=== PATIENT | male | born 1970 | race Caucasian/White ===

== ENCOUNTER 2017-06-01 17:00 | Emergency (ER) | payer MEDICARE, MEDICAID ==
[2017-06-01 17:38] LABS: #Eosinphils 0.1 thou/uL (0.0-0.7); #Lymphocytes 1.2 thou/uL (1.20-3.40); #Monocytes 0.4 thou/uL (0.11-0.59); #Neutrophils 4.5 thou/uL (1.40-6.50); %Basophils 0.7 % (0.0-1.0); %Lymphocytes 19.1 % (21.0-51.0); %Monocytes 5.7 % (0.0-10.0); %Neutrophils 73.4 % (42.0-75.0); Hemoglobin 13.8 g/dL (14.0-18.0); Mean Corpuscular HGB CONC 32.8 g/dL (32.0-36.0); Mean Corpuscular Hemoglobin 28.6 pg (27.0-31.0); Mean Corpuscular Volume 87.1 fl (80.0-94.0); Mean Platelet Volume 8.2 fL (7.4-10.4); Platelet Count 122 thou/uL (130-400); RBC Distribution Width 12.5 % (11.5-14.5); Red Blood Cell (RBC) Count 4.85 mill/uL (4.70-6.10); White Blood Cell (WBC) Count 6.1 thou/uL (4.8-10.8)
[2017-06-01 17:57] LABS: ALT (SGPT) 9 U/L (8-55); AST (SGOT) 12 U/L (5-34); Alkaline Phosphatase 80 U/L (40-150); Anion Gap 12 mmol/L (10-20); BUN (Urea Nitrogen) 16 mg/dL (8.9-20.6); Bilirubin, Total 0.4 mg/dL (0.2-1.2); Calc. Creatinine Clearance 0 mL/min (70-130); Calcium 8.5 mg/dL (7.8-10.44); Carbon Dioxide 26 mmol/L (22-29); Chloride 105 mmol/L (98-107); Estimated GFR-MDRD Greater than 90; Globulin 2.8 g/dL (2.4-3.5); Glucose 109 mg/dL (70-105); Potassium 3.5 mmol/L (3.5-5.1); Protein, Total 6.8 g/dL (6.0-8.3); Sodium 139 mmol/L (136-145)
[2017-06-01] MEDS ORDERED: Azithromycin 250 MG TAB ONE (20:12)
--- NOTE | 2017-06-01 20:31 | RAD ---
PORTABLE AP CHEST RADIOGRAPH: Date: 06-01-17 History: Cough, congestion. Comparison: 06-09-16 FINDINGS: Again noted is elevation of the left hemidiaphragm. There is parenchymal increased density at the lef t lung base which is greater than on the prior exam. While this could be related to atelectasis, foca l pneumonia is a possibility. The right lung is clear. Cardiac silhouette is magnified by projection. The pulmonary vasculature is within normal limits. There is a regular lytic and sclerotic density se en within the right proximal humerus, also seen on the prior study on 10-30-13, which may represent ei ther a low grade chondroid lesion or infarction. Surgical clips overlie the left hilar region. There is gaseous distention of multiple loops of bowel within the abdomen. No other interval change. IMPRESSION: 1. Elevation of the left hemidiaphragm with volume loss left lung base. However, there is greater par enchymal density at the left lung base than on the prior exam and focal pneumonia cannot be excluded. Follow up to resolution is recommended. POS: ELIZABETH
== END 2017-06-01 20:33 | disposition home or self-care (01) ==
LOC: ERS 17:00
DX: J40 Bronchitis, not specified as acute or chronic (principal); I10 Essential (primary) hypertension; F31.9 Bipolar disorder, unspecified; F41.9 Anxiety disorder, unspecified; Z79.899 Other long term (current) drug therapy; Z79.891 Long term (current) use of opiate analgesic
CPT/HCPCS: 36415; 71045; 80053; 85025

== ENCOUNTER 2017-06-25 14:03 | Emergency (ER) | payer MEDICARE, MEDICAID ==
[2017-06-25 14:54] LABS: #Eosinphils 0.1 thou/uL (0.0-0.7); #Lymphocytes 0.8 thou/uL (1.20-3.40); #Monocytes 0.5 thou/uL (0.11-0.59); #Neutrophils 8.1 thou/uL (1.40-6.50); %Basophils 0.5 % (0.0-1.0); %Eosinophils 0.6 % (0.0-10.0); %Lymphocytes 8.6 % (21.0-51.0); %Monocytes 5.4 % (0.0-10.0); %Neutrophils 84.9 % (42.0-75.0); Mean Corpuscular HGB CONC 32.6 g/dL (32.0-36.0); Mean Corpuscular Hemoglobin 28.3 pg (27.0-31.0); Mean Corpuscular Volume 86.7 fl (80.0-94.0); Mean Platelet Volume 7.9 fL (7.4-10.4); Platelet Count 116 thou/uL (130-400); RBC Distribution Width 12.6 % (11.5-14.5); Red Blood Cell (RBC) Count 5.28 mill/uL (4.70-6.10); White Blood Cell (WBC) Count 9.5 thou/uL (4.8-10.8)
[2017-06-25 15:19] LABS: ALT (SGPT) 89 U/L (8-55); AST (SGOT) 115 U/L (5-34); Alkaline Phosphatase 176 U/L (40-150); Anion Gap 16 mmol/L (10-20); BUN (Urea Nitrogen) 16 mg/dL (8.9-20.6); Bilirubin, Total 0.7 mg/dL (0.2-1.2); Calc. Creatinine Clearance 0 mL/min (70-130); Calcium 8.7 mg/dL (7.8-10.44); Carbon Dioxide 21 mmol/L (22-29); Chloride 106 mmol/L (98-107); Estimated GFR-MDRD Greater than 90; Globulin 2.9 g/dL (2.4-3.5); Glucose 84 mg/dL (70-105); Potassium 4.6 mmol/L (3.5-5.1); Protein, Total 6.9 g/dL (6.0-8.3); Sodium 138 mmol/L (136-145)
[2017-06-25 15:41] LABS: Bilirubin Negative (Negative); Blood, Urine Negative (Negative); Clarity CLEAR (Clear); Glucose, Urine (Dipstick) Negative (Negative); Leukocyte Negative (Negative); Nitrite Negative (Negative); Protein, Urine (Dipstick) Negative (Neg-Trace); Specific Gravity, Urine 1.018 (1.002-1.036); pH, Urine 6.5 (5.0-9.0)
[2017-06-25] MEDS ORDERED: Acetaminophen 500 MG TAB ONE (17:11)
[2017-06-25] MEDS ORDERED: Acetaminophen 650 MG Suppository ONE (17:35)
--- NOTE | 2017-06-25 17:53 | CT ---
CT BRAIN WITHOUT CONTRAST 06/25/17 HISTORY: Headache. COMPARISON: CT brain 09/11/14. FINDINGS: No acute territorial infarction or hemorrhage. No midline shift or mass effect. Ventricular size and extra-axial CSF spaces are similar. Posterior fossa encephalomalacia as well as anterior inferior right temporal lobe encephalomalacia is similar. IMPRESSION: No acute intracranial abnormality. No significant change. POS: [facility]
--- NOTE | 2017-06-25 18:03 | ULT ---
EXAM: RUQ ultrasound HISTORY: Elevated LFTs FINDINGS: Liver measures 14.7 cm in length. No intrahepatic or extrahepatic biliary dilatation. Prior cholecystectomy. Right kidney measures 10.3 x 4.89 x 4 cm. Pancreas is not well seen. Sonographic Kennedy's sign is negative. Common bile duct measures 5 mm. IMPRESSION: Unremarkable exam. POS: [facility]
== END 2017-06-25 20:57 ==
LOC: ERS 14:03
DX: G40.909 Epilepsy, unspecified, not intractable, without status epilepticus (principal); I10 Essential (primary) hypertension; F41.9 Anxiety disorder, unspecified; F31.9 Bipolar disorder, unspecified; Z79.899 Other long term (current) drug therapy; Z86.73 Personal history of transient ischemic attack (TIA), and cerebral infarction without residual deficits
CPT/HCPCS: 36415; 51701; 70450; 76705; 80053; 81003; 85025; 93005; 94760

== ENCOUNTER 2018-02-13 12:18 | Inpatient (IN) | payer MEDICARE, MEDICAID ==
[~2018-02-13 12:18] MED LIST: ISOVUE-370 76%-LOCM 1 ML ONE
--- NOTE | 2018-02-13 13:17 | RAD ---
PORTABLE CHEST: Date: 02/13/18 PROVIDED CLINICAL HISTORY: Dyspnea. FINDINGS: Comparison with 06/01/17. Elevation of the left hemidiaphragm persists, unchanged with respect to prior. Cardiac and mediastina l silhouette appears within normal limits as visualized. No focal consolidation, pleural fluid, or pn eumothorax apparent. Stable low grade chondroid lesion right proximal humeral metaphyseal region. IMPRESSION: Stable radiographic appearance of the chest. POS: ELIZABETH
[2018-02-13 13:53] LABS: #Eosinphils 0.1 thou/uL (0.0-0.7); #Lymphocytes 0.9 thou/uL (1.20-3.40); #Monocytes 0.5 thou/uL (0.11-0.59); #Neutrophils 4.7 thou/uL (1.40-6.50); %Basophils 0.4 % (0.0-1.0); %Eosinophils 0.9 % (0.0-10.0); %Monocytes 8.4 % (0.0-10.0); %Neutrophils 75.3 % (42.0-75.0); Hemoglobin 14.2 g/dL (14.0-18.0); Mean Corpuscular HGB CONC 31.8 g/dL (32.0-36.0); Mean Platelet Volume 8.4 fL (7.4-10.4); Platelet Count 118 thou/uL (130-400); Red Blood Cell (RBC) Count 5.08 mill/uL (4.70-6.10); White Blood Cell (WBC) Count 6.2 thou/uL (4.8-10.8)
[2018-02-13 14:07] LABS: ALT (SGPT) 42 U/L (8-55); AST (SGOT) 45 U/L (5-34); Albumin 3.7 g/dL (3.5-5.0); Alkaline Phosphatase 138 U/L (40-150); Anion Gap 14 mmol/L (10-20); BUN (Urea Nitrogen) 14 mg/dL (8.9-20.6); Bilirubin, Total 0.4 mg/dL (0.2-1.2); Calc. Creatinine Clearance 0 mL/min (70-130); Calcium 8.8 mg/dL (7.8-10.44); Carbon Dioxide 23 mmol/L (22-29); Chloride 105 mmol/L (98-107); Estimated GFR-MDRD Greater than 90; Glucose 103 mg/dL (70-105); Potassium 3.5 mmol/L (3.5-5.1); Protein, Total 6.7 g/dL (6.0-8.3); Sodium 138 mmol/L (136-145)
[2018-02-13 14:11] LABS: Troponin I Less than 0.010 ng/mL (< 0.028)
[2018-02-13 15:09] LABS: INR-International Normal Ratio 1.1; PTT 31.4 SEC (22.9-36.1); Prothrombin Time 14.6 SEC (12.0-14.7)
[2018-02-13 15:15] LABS: Magnesium 1.9 mg/dL (1.6-2.6); Phosphorus 3.8 mg/dL (2.3-4.7)
--- NOTE | 2018-02-13 16:08 | CT ---
CT ARTERIOGRAM CHEST WITH IV CONTRAST AND 3D MIP IMAGIN02/13/18 HISTORY: Chest pain. Dyspnea. COMPARISON: 06/03/16. FINDINGS: There is good contrast opacification of pulmonary arteries and thoracic aorta with normal branching o f the great vessels. Low density material fills the left main stem bronchus and left lower lobe bronc hi. Some aeration of the left upper lobe remains. Near complete atelectasis left lower lobe with spar ing of the superior segment. Mild atelectasis at the right base. Marked elevation of the left hemidia phragm. No pneumothorax or mediastinal adenopathy. IMPRESSION: No CT evidence of pulmonary embolus. Near complete left lower lobe atelectasis with extensive opacification of the left bronchi. Please co nsider pulmonary evaluation. POS: [facility]IZAB[facility]
[2018-02-13] MEDS ORDERED: Aspirin 300 MG Suppository ONE (16:52)
[2018-02-13] MEDS ORDERED: Enoxaparin Sodium 40 MG/0.4 ML SYRINGE ONE (17:11)
[2018-02-13] MEDS ORDERED: Ondansetron ODT 4 MG TAB PO PRN (17:33)
[2018-02-13] MEDS ORDERED: Ondansetron PF 4 MG/2 ML Vial IVP PRN (17:33)
[2018-02-13] MEDS ORDERED: Nitroglycerin 0.4 MG TAB (25 Tab Bottle) PO PRN (17:33)
[2018-02-13] MEDS ORDERED: cloNIDine 0.1 MG TAB PO PRN (17:38)
[2018-02-13] MEDS ORDERED: Labetalol HCl 100 MG/20 ML VIAL SLOW IVP PRN (17:38)
[2018-02-13] MEDS ORDERED: Diltiazem 125 MG in Sodium Chloride 0.9% 100 ML IVPB SCH (17:45)
[2018-02-13] MEDS ORDERED: HYDROcodone/Acetaminophen 10/325 mg Tablet PO PRN (20:38)
[2018-02-13] MEDS ORDERED: Acetaminophen/Codeine 30-300mg Tablet PO PRN (20:38)
[2018-02-13] MEDS ORDERED: Loratadine 10 MG TAB PO PRN (20:38)
[2018-02-13] MEDS ORDERED: Melatonin 3 MG TAB PO PRN (20:38)
[2018-02-13] MEDS ORDERED: Polyethylene Glycol 3350 17 GM Packet PO SCH (21:00)
[2018-02-13] MEDS: D5 1/2 NS w/20 mEq KCL 1,000 ML IV SCH (21:25)
[2018-02-13] MEDS: levETIRAcetam 500 mg/5 ml Oral Solution PO SCH (21:31)
[2018-02-13] MEDS: Baclofen 10 MG TAB PO SCH (21:37)
[2018-02-13] MEDS: Acetaminophen 325 MG TAB PO PRN (21:37)
[2018-02-13] MEDS: Famotidine 20 MG TAB PO SCH (21:38)
[2018-02-13] MEDS: clonazePAM 1 MG TAB PO SCH (21:38)
[2018-02-13] MEDS: Senokot S 8.6-50 MG TAB PO SCH (21:38)
[2018-02-13] MEDS ORDERED: Scopolamine 1.5 mg/72 hour Patch TOP SCH (22:00)
[2018-02-13] MEDS ORDERED: fentaNYL 50 mcg/hour Patch TD SCH (22:00)
[2018-02-14 04:52] LABS: #Eosinphils 0.1 thou/uL (0.0-0.7); #Lymphocytes 0.9 thou/uL (1.20-3.40); #Monocytes 0.7 thou/uL (0.11-0.59); #Neutrophils 4.3 thou/uL (1.40-6.50); %Basophils 0.3 % (0.0-1.0); %Eosinophils 1.4 % (0.0-10.0); %Lymphocytes 14.4 % (21.0-51.0); %Monocytes 11.5 % (0.0-10.0); %Neutrophils 72.4 % (42.0-75.0); Hemoglobin 12.3 g/dL (14.0-18.0); Mean Corpuscular HGB CONC 32.3 g/dL (32.0-36.0); Mean Corpuscular Hemoglobin 28.3 pg (27.0-31.0); Mean Corpuscular Volume 87.7 fL (78.0-98.0); Mean Platelet Volume 8.1 fL (7.4-10.4); Platelet Count 114 thou/uL (130-400); Red Blood Cell (RBC) Count 4.36 mill/uL (4.70-6.10); White Blood Cell (WBC) Count 5.9 thou/uL (4.8-10.8)
[2018-02-14 05:08] LABS: Anion Gap 10 mmol/L (10-20); BUN (Urea Nitrogen) 13 mg/dL (8.9-20.6); Calc. Creatinine Clearance 112 mL/min (70-130); Calcium 8.2 mg/dL (7.8-10.44); Carbon Dioxide 21 mmol/L (22-29); Chloride 107 mmol/L (98-107); Estimated GFR-MDRD Greater than 90; Glucose 111 mg/dL (70-105); Potassium 3.9 mmol/L (3.5-5.1); Sodium 134 mmol/L (136-145)
[2018-02-14 05:26] LABS: Troponin I Less than 0.010 ng/mL (< 0.028)
[2018-02-14] MEDS: Enoxaparin Sodium 40 MG/0.4 ML SYRINGE SC SCH ×2 (06:44→17:44)
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
[2018-02-14] MEDS: Lactinex Tablet PO SCH (10:09)
[2018-02-14] MEDS: levETIRAcetam 500 mg/5 ml Oral Solution PO SCH ×2 (10:09→21:16)
[2018-02-14] MEDS: Prazosin HCl 1 MG CAP PO SCH (10:09)
[2018-02-14] MEDS: Aspirin 81 mg Enteric Coated Tablet PO SCH (10:09)
[2018-02-14] MEDS: Famotidine 20 MG TAB PO SCH ×2 (10:09→21:18)
[2018-02-14] MEDS: OXcarbazepine 150 MG TAB PO SCH (10:10)
[2018-02-14] MEDS: Baclofen 10 MG TAB PO SCH ×3 (10:10→21:21)
[2018-02-14] MEDS: Polyethylene Glycol 3350 17 GM Packet PO SCH (10:10)
[2018-02-14] MEDS: clonazePAM 1 MG TAB PO SCH ×2 (10:10→21:22)
[2018-02-14] MEDS: Senokot S 8.6-50 MG TAB PO SCH ×2 (10:10→21:22)
[2018-02-14] MEDS: D5 1/2 NS w/20 mEq KCL 1,000 ML IV SCH (10:11)
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
[2018-02-14] MEDS: Acetaminophen 325 MG TAB PO PRN (18:18)
[2018-02-14] MEDS: Amoxicillin/Potassium Clav 500 MG TAB PO SCH (21:22)
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
[2018-02-15] MEDS: D5 1/2 NS w/20 mEq KCL 1,000 ML IV SCH (03:51)
[2018-02-15 06:13] LABS: #Basophils 0.1 thou/uL (0.0-0.2); #Eosinphils 0.3 thou/uL (0.0-0.7); #Lymphocytes 1.4 thou/uL (1.20-3.40); #Monocytes 0.9 thou/uL (0.11-0.59); #Neutrophils 4.4 thou/uL (1.40-6.50); %Basophils 0.9 % (0.0-1.0); %Eosinophils 3.9 % (0.0-10.0); %Lymphocytes 19.5 % (21.0-51.0); %Monocytes 12.1 % (0.0-10.0); %Neutrophils 63.5 % (42.0-75.0); Hemoglobin 12.4 g/dL (14.0-18.0); Mean Corpuscular HGB CONC 32.7 g/dL (32.0-36.0); Mean Corpuscular Hemoglobin 28.1 pg (27.0-31.0); Mean Platelet Volume 8.1 fL (7.4-10.4); Platelet Count 93 thou/uL (130-400); RBC Distribution Width 12.8 % (11.5-14.5); Red Blood Cell (RBC) Count 4.43 mill/uL (4.70-6.10)
[2018-02-15 06:20] LABS: Anion Gap 9 mmol/L (10-20); BUN (Urea Nitrogen) 8 mg/dL (8.9-20.6); Calc. Creatinine Clearance 105 mL/min (70-130); Calcium 8.4 mg/dL (7.8-10.44); Carbon Dioxide 24 mmol/L (22-29); Chloride 109 mmol/L (98-107); Estimated GFR-MDRD Greater than 90; Glucose 91 mg/dL (70-105); Magnesium 1.9 mg/dL (1.6-2.6); Potassium 3.5 mmol/L (3.5-5.1); Sodium 138 mmol/L (136-145)
[2018-02-15] MEDS: Enoxaparin Sodium 40 MG/0.4 ML SYRINGE SC SCH (07:00)
[2018-02-15] MEDS: levETIRAcetam 500 mg/5 ml Oral Solution PO SCH (08:48)
[2018-02-15] MEDS: Prazosin HCl 1 MG CAP PO SCH (08:48)
[2018-02-15] MEDS: Senokot S 8.6-50 MG TAB PO SCH (08:49)
[2018-02-15] MEDS: Polyethylene Glycol 3350 17 GM Packet PO SCH ×2 (08:49→09:24)
[2018-02-15] MEDS: OXcarbazepine 150 MG TAB PO SCH (08:49)
[2018-02-15] MEDS: Lactinex Tablet PO SCH (08:49)
[2018-02-15] MEDS: Baclofen 10 MG TAB PO SCH (08:50)
[2018-02-15] MEDS: clonazePAM 1 MG TAB PO SCH (08:50)
[2018-02-15] MEDS: Aspirin 81 mg Enteric Coated Tablet PO SCH (08:50)
[2018-02-15] MEDS: Famotidine 20 MG TAB PO SCH (08:50)
[2018-02-15] MEDS: Amoxicillin/Potassium Clav 500 MG TAB PO SCH (08:50)
[2018-02-15] MEDS ORDERED: Furosemide 20 MG TAB PO SCH (09:00)
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
[2018-02-15 12:13] VITALS: BP 131/77; TEMP 98
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
[2018-02-16] MEDS ORDERED: fentaNYL 50 mcg/hour Patch TD SCH (09:00)
[2018-02-16] MEDS ORDERED: Enoxaparin Sodium 30 MG/0.3 ML SYRINGE SC SCH (09:00)
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
--- NOTE | 2018-02-20 23:07 | EKG ---
Test Reason : SOB Blood Pressure : / mmHG Vent. Rate : 148 BPM Atrial Rate : 153 BPM P-R Int : 000 ms QRS Dur : 090 ms QT Int : 298 ms P-R-T Axes : 000 -25 169 degrees QTc Int : 467 ms Atrial fibrillation with rapid ventricular response with premature ventricular or aberrantly conducte d complexes Minimal voltage criteria for LVH, may be normal variant Inferior-posterior infarct , age undetermined Abnormal ECG Confirmed by BENNY DUNCAN ([id number]), health editor ELIZABETH ELIZABETH ([id number]) on 02/20/2018 11:06:55 PM Referred By: Confirmed By:BENNY DUNCAN
== END 2018-02-15 13:14 | DRG 189 ==
LOC: ERS 12:18 → 2NO 16:17
PROVIDERS: ADMIT Internal Medicine; ATTEND Internal Medicine
DX: J96.01 Acute respiratory failure with hypoxia (principal); G81.94 Hemiplegia, unspecified affecting left nondominant side; R47.01 Aphasia; J98.11 Atelectasis; E87.1 Hypo-osmolality and hyponatremia; Z87.820 Personal history of traumatic brain injury; I10 Essential (primary) hypertension; V89.2XXS Person injured in unspecified motor-vehicle accident, traffic, sequela; I48.91 Unspecified atrial fibrillation; F31.9 Bipolar disorder, unspecified; R13.12 Dysphagia, oropharyngeal phase; Z93.0 Tracheostomy status; G89.29 Other chronic pain; Z79.899 Other long term (current) drug therapy; D69.6 Thrombocytopenia, unspecified
CPT/HCPCS: 36415; 51701; 71045; 71275; 80048; 80053; 82553; 83735; 83880; 84100; 84443; 84484; 85025; 85610; 85730; 93005; 93010; 93306; 94640; 94760; 96360; 96361; 96372; A4353; G8978-GP-CM; G8979-GP-CK; G8996-GN-CM; G8997-GN-CK; J1650; J7050; J7620

== ENCOUNTER 2018-03-23 19:27 | Emergency (ER) | payer MEDICARE, OTHER ==
--- NOTE | 2018-03-23 23:07 | CT ---
CT BRAIN NONCONTRAST: DATE: 03/23/18 TIME: 8:41 p.m. HISTORY: 47-year-old male status post acute head trauma due to fall from wheelchair, striking back of head. COMPARISON: 06/25/17. FINDINGS: No acute calvarial fracture. No mass effect, midline shift, or extra-axial fluid collections. Diffuse involutional changes of the brain, both supratentorially and in the posterior fossa. The brain stem, more specifically the midbrain, is especially atrophic. There is associated ex vacuo dilation of the fourth, lateral, and third ventricles. This ventriculomegaly appears mildly worse on the current CT compared to 06/25/17. IMPRESSION: 1. No acute intracranial hemorrhage or mass effect. 2. Diffuse atrophy of the brain, most severely involving the midbrain. 3. Ventriculomegaly involving all ventricles. This has worsened slightly compared to 06/25/17. At least some of this, and possibly all of this ventriculomegaly is due to the brain atrophy. There is a n alternative possibility of a communicating obstructive hydrocephalus, although the likelihood is no t high. AVINASH Cantor POS: ELIZABETH
== END 2018-03-23 22:44 ==
LOC: ERS 19:27
DX: S09.90XA Unspecified injury of head, initial encounter (principal); I10 Essential (primary) hypertension; F41.9 Anxiety disorder, unspecified; F31.9 Bipolar disorder, unspecified; Z79.899 Other long term (current) drug therapy; W17.89XA Other fall from one level to another, initial encounter
CPT/HCPCS: 70450

== ENCOUNTER 2018-03-31 18:18 | Emergency (ER) | payer MEDICARE, OTHER ==
[2018-03-31 19:33] LABS: #Basophils 0.1 thou/uL (0.0-0.2); #Eosinphils 0.1 thou/uL (0.0-0.7); #Lymphocytes 1.6 thou/uL (1.20-3.40); #Monocytes 0.5 thou/uL (0.11-0.59); #Neutrophils 4.1 thou/uL (1.40-6.50); %Basophils 0.8 % (0.0-1.0); %Lymphocytes 25.5 % (21.0-51.0); %Monocytes 7.6 % (0.0-10.0); %Neutrophils 64.1 % (42.0-75.0); Hemoglobin 13.4 g/dL (14.0-18.0); Mean Corpuscular HGB CONC 32.7 g/dL (32.0-36.0); Mean Corpuscular Hemoglobin 28.1 pg (27.0-31.0); Mean Platelet Volume 7.2 fL (7.4-10.4); Platelet Count 191 thou/uL (130-400); RBC Distribution Width 12.7 % (11.5-14.5); Red Blood Cell (RBC) Count 4.76 mill/uL (4.70-6.10); White Blood Cell (WBC) Count 6.4 thou/uL (4.8-10.8)
[2018-03-31 19:58] LABS: Anion Gap 12 mmol/L (10-20); BUN (Urea Nitrogen) 14 mg/dL (8.9-20.6); Calc. Creatinine Clearance 0 mL/min (70-130); Calcium 8.8 mg/dL (7.8-10.44); Carbon Dioxide 27 mmol/L (22-29); Chloride 106 mmol/L (98-107); Estimated GFR-MDRD Greater than 90; Glucose 96 mg/dL (70-105); Sodium 142 mmol/L (136-145)
--- NOTE | 2018-03-31 20:39 | RAD ---
FRONTAL RADIOGRAPH CHEST 03/31/18 COMPARISON: 06/01/17 HISTORY: Possible aspiration, shortness of breath. FINDINGS: There is a sclerotic lesion within the proximal right humerus with chondroid matrix, a stable finding , suggesting a nonspecific chondroid lesion. Low grade chondrosarcoma cannot be excluded. There is marked elevation of the left hemidiaphragm as before. there is hazy increased density within the left lung base adjacent to elevated left hemidiaphragm, stable as well. No pneumothorax, lobar c onsolidation, or large volume pleural effusion. IMPRESSION: 1. Stable appearance of the chest demonstrating marked elevation of the left hemidiaphragm with increased density in the left lung base. Left basilar infectious pneumonitis cannot be completely exc luded. 2. Chondroid lesion of proximal right humerus as above. POS: [facility]
== END 2018-03-31 22:17 ==
LOC: ERS 18:18
DX: R06.02 Shortness of breath (principal); I10 Essential (primary) hypertension; F41.9 Anxiety disorder, unspecified; F31.9 Bipolar disorder, unspecified; Z86.73 Personal history of transient ischemic attack (TIA), and cerebral infarction without residual deficits; Z79.899 Other long term (current) drug therapy
CPT/HCPCS: 71045; 80048; 85025

== ENCOUNTER 2018-04-17 10:50 | Emergency (ER) | payer MEDICARE, OTHER ==
[2018-04-17 11:30] LABS: #Basophils 0.1 thou/uL (0.0-0.2); #Eosinphils 0.2 thou/uL (0.0-0.7); #Lymphocytes 2.2 thou/uL (1.20-3.40); #Monocytes 0.9 thou/uL (0.11-0.59); #Neutrophils 8.4 thou/uL (1.40-6.50); %Basophils 0.5 % (0.0-1.0); %Eosinophils 1.4 % (0.0-10.0); %Lymphocytes 18.5 % (21.0-51.0); %Monocytes 7.4 % (0.0-10.0); %Neutrophils 72.2 % (42.0-75.0); Hemoglobin 15.3 g/dL (14.0-18.0); Mean Corpuscular HGB CONC 32.1 g/dL (32.0-36.0); Mean Corpuscular Hemoglobin 27.3 pg (27.0-31.0); Mean Platelet Volume 8.8 fL (7.4-10.4); Platelet Count 152 thou/uL (130-400); RBC Distribution Width 13.1 % (11.5-14.5); Red Blood Cell (RBC) Count 5.62 mill/uL (4.70-6.10); White Blood Cell (WBC) Count 11.7 thou/uL (4.8-10.8)
[2018-04-17 11:49] LABS: ALT (SGPT) 16 U/L (8-55); AST (SGOT) 16 U/L (5-34); Albumin 3.7 g/dL (3.5-5.0); Alkaline Phosphatase 116 U/L (40-150); Anion Gap 14 mmol/L (10-20); BUN (Urea Nitrogen) 17 mg/dL (8.9-20.6); Bilirubin, Total 0.4 mg/dL (0.2-1.2); CK (CPK) 31 U/L (30-200); Calc. Creatinine Clearance 0 mL/min (70-130); Calcium 8.8 mg/dL (7.8-10.44); Carbon Dioxide 25 mmol/L (22-29); Chloride 107 mmol/L (98-107); Estimated GFR-MDRD Greater than 90; Globulin 3.4 g/dL (2.4-3.5); Glucose 88 mg/dL (70-105); Lipase 42 U/L (8-78); Protein, Total 7.1 g/dL (6.0-8.3); Sodium 142 mmol/L (136-145)
[2018-04-17 12:04] LABS: Bilirubin Small (Negative); Blood, Urine Trace (Negative); Clarity CLOUDY (Clear); Glucose, Urine (Dipstick) Negative (Negative); Leukocyte Moderate (Negative); Nitrite Positive (Negative); Protein, Urine (Dipstick) 30 mg/dL (Neg-Trace); Specific Gravity, Urine 1.031 (1.002-1.036)
[2018-04-17 12:05] LABS: Bacteria/HPF 4+ HPF (None Seen); Hyaline Casts/LPF 0-3 HYALINE CAST LPF (0-3 Hyaline); Pathc Cast-AUWi Flag 0.49 (0-2.49); Squamous Epithelial None Seen HPF (0-3)
--- NOTE | 2018-04-17 12:27 | CT ---
CT HEAD NONCONTRAST: HISTORY: CVA. Stroke alert. COMPARISON: 03/23/2018. FINDINGS: There is no evidence of acute intracranial hemorrhage or infarct. Ventricles appear normal in size, shape, and position. There is no mass effect or shift of midline structures. Diffuse cortical atrop hy and chronic ischemic small-vessel disease are similar in appearance to the prior study. Visualize d paranasal sinuses remain well aerated. IMPRESSION: Chronic-type findings are stable. No acute intracranial abnormalities are demonstrated. Findings were called to Dr. Muller in the emergency department at 1103 hours. CODE CR POS: [facility]
[2018-04-17] MEDS ORDERED: Ciprofloxacin 500 MG TAB ONE (12:35)
[2018-04-17] MEDS ORDERED: cefTRIAXone\\ROCEPHIN 1 GM VIAL ONE (13:02)
--- NOTE | 2018-04-17 13:21 | RAD ---
CHEST 1 VIEW: History Altered mental status. Dyspnea. COMPARISON: 03/31/2018. FINDINGS: Cardiac silhouette is magnified and predominantly obscured by a markedly elevated left hemidiaphragm with left basilar atelectasis. The right lung is well inflated. Postoperative changes of the left h ilum are again demonstrated. No evidence of pneumothorax. IMPRESSION: Stable radiographic appearance of the chest. No active cardiopulmonary abnormalities are demonstrate d. POS: [facility]
== END 2018-04-17 15:28 ==
LOC: ERS 10:50
DX: N39.0 Urinary tract infection, site not specified (principal); F41.9 Anxiety disorder, unspecified; F31.9 Bipolar disorder, unspecified; I10 Essential (primary) hypertension; Z79.899 Other long term (current) drug therapy; Z79.891 Long term (current) use of opiate analgesic
CPT/HCPCS: 36415; 36416; 51701; 70450; 71045; 80053; 81003; 81015; 82550; 83605; 83690; 85025; 87040; 87077; 87086; 87186; 93005; 96361; 96365; J0696

== ENCOUNTER 2019-01-23 14:49 | Inpatient (IN) | payer MEDICARE, MEDICAID ==
[2019-01-23 15:05] LABS: Actual Bicarbonate (HCO3a) 26.1 mEq/L (22-28); Analyzer IN Cardio ER; Base Excess (BEa) -3.8 mEq/L (-2.0 to +3.0); Calcium, Ionized 1.13 mmol/L (1.12-1.30); Carboxyhemoglobin (COHb) 0.2 gm% (0.0-3.0); Hemoglobin (Hb) 14.2 g/dL (14.0-18.0); O2 Tension (PaO2) 66.3 mmHg (80.0-100.0); Potassium - ABG Lab 3.19 mmol/L (3.70-5.30)
[2019-01-23 15:06] LABS: CO2 Tension 70.6 mmHg (35.0-45.0); pH, Arterial 7.19 (7.35-7.45)
[2019-01-23 15:07] LABS: Puncture Site RBRACH
[2019-01-23] MEDS ORDERED: Fentanyl 100 MCG/2 ML VIAL ONE (15:25)
[2019-01-23] MEDS ORDERED: Midazolam HCl 2 mg/2 ml Vial ONE (15:25)
[2019-01-23] MEDS ORDERED: fentaNYL Citrate/PF 2,000 MCG in Sodium Chloride 0.9% 60 ML IV SCH (15:30)
--- NOTE | 2019-01-23 15:32 | RAD ---
FRONTAL VIEW CHEST: CLINICAL HISTORY: Difficulty breathing, dyspnea. COMPARISON: 04/17/2018 FINDINGS: There is elevation of the left hemidiaphragm with an underlying gaseous distended stomach. Enteric ca theter coils at the left upper quadrant within the air distended stomach. Endotracheal tube is present with tip at thoracic inlet level. There is patchy consolidation of the left lower lung zone, adjacent the elevated left hemidiaphragm. There is mild accentuation of the cardiomediastinal silhouette due to technique of the exam. Mild perihilar vascular prominence is seen bilaterally. IMPRESSION: 1. Gaseous distended stomach with elevated left hemidiaphragm and enteric catheter coiled at the left upper quadrant. 2. Patchy consolidation, left lower lung zone, indicative of pneumonia. Recommend followup to resolut ion. 3. Mild bilateral perihilar vascular prominence. Correlate for fluid status. Transcribed Date/Time: 01/23/2019 3:42 PM
[2019-01-23 15:52] LABS: #Eosinphils 0.1 thou/uL (0.0-0.7); #Lymphocytes 1.5 thou/uL (1.20-3.40); #Monocytes 0.5 thou/uL (0.11-0.59); #Neutrophils 8.5 thou/uL (1.40-6.50); %Basophils 0.1 % (0.0-1.0); %Eosinophils 0.7 % (0.0-10.0); %Monocytes 4.3 % (0.0-10.0); %Neutrophils 80.8 % (42.0-75.0); Mean Corpuscular HGB CONC 33.1 g/dL (32.0-36.0); Mean Corpuscular Hemoglobin 28.7 pg (27.0-31.0); Mean Corpuscular Volume 86.6 fL (78.0-98.0); Mean Platelet Volume 8.2 fL (7.4-10.4); Platelet Count 113 thou/uL (130-400); Red Blood Cell (RBC) Count 4.88 mill/uL (4.70-6.10); White Blood Cell (WBC) Count 10.5 thou/uL (4.8-10.8)
[2019-01-23 15:54] LABS: INR-International Normal Ratio 1.1
[2019-01-23 15:56] LABS: Actual Bicarbonate (HCO3a) 24.7 mEq/L (22-28); Base Excess (BEa) -3.8 mEq/L (-2.0 to +3.0); Carboxyhemoglobin (COHb) 0.6 gm% (0.0-3.0); O2 Tension (PaO2) 75.5 mmHg (80.0-100.0); Potassium - ABG Lab 3.29 mmol/L (3.70-5.30)
[2019-01-23 15:58] LABS: CO2 Tension 60.5 mmHg (35.0-45.0); pH, Arterial 7.23 (7.35-7.45)
[2019-01-23 15:59] LABS: ALV-art Gradient 205.375 (0-20); Puncture Site RBRACH
[2019-01-23 16:01] LABS: ALT (SGPT) 20 U/L (8-55); AST (SGOT) 27 U/L (5-34); Albumin 3.8 g/dL (3.5-5.0); Alkaline Phosphatase 123 U/L (40-110); Anion Gap 12 mmol/L (10-20); BUN (Urea Nitrogen) 12 mg/dL (8.9-20.6); Bilirubin, Total 0.3 mg/dL (0.2-1.2); CK (CPK) 71 U/L (30-200); Calc. Creatinine Clearance 0 mL/min (70-130); Calcium 7.7 mg/dL (7.8-10.44); Carbon Dioxide 23 mmol/L (22-29); Chloride 106 mmol/L (98-107); Estimated GFR-MDRD Greater than 90; Globulin 2.7 g/dL (2.4-3.5); Glucose 202 mg/dL (70-105); Potassium 3.4 mmol/L (3.5-5.1); Protein, Total 6.5 g/dL (6.0-8.3); Sodium 138 mmol/L (136-145)
[2019-01-23 16:02] LABS: Platelet Morphology Comment Appears Decreased; RBC Morphology Normal
[2019-01-23] MEDS ORDERED: CCU Electrolyte Replacement 1 EACH IVPB ONE (16:26)
[2019-01-23] MEDS ORDERED: Sodium Chloride 0.9% 1,000 ML IV SCH (16:30)
[2019-01-23 16:37] LABS: Bilirubin Negative (Negative); Blood, Urine Negative (Negative); Clarity Clear (Clear); Glucose, Urine (Dipstick) Normal (Negative); Leukocyte Negative Leu/uL (Negative); Nitrite Negative (Negative); Protein, Urine (Dipstick) Negative (Neg-Trace); Urobilinogen Normal mg/dL (Less than 2)
[2019-01-23] MEDS ORDERED: Potassium Phosphate 15 MMOL in Sodium Chloride 0.9% 250 ML 250 ML IV PRN (16:46)
[2019-01-23] MEDS ORDERED: Magnesium 2 GM/50 ML 2 GM in Premix Bag 1 BAG IVPB PRN (16:46)
[2019-01-23] MEDS ORDERED: Potassium Chloride 40 MEQ in Premix Bag 1 BAG IVPB PRN (16:46)
[2019-01-23] MEDS ORDERED: Potassium Chloride 20 MEQ TAB PO PRN (16:46)
[2019-01-23] MEDS ORDERED: Potassium Chloride 40 MEQ in Sodium Chloride 0.9% 250 ML 250 ML IVPB PRN (16:46)
[2019-01-23] MEDS ORDERED: PHOS-NAK 1 PKT PACK PO PRN ×2 (16:46)
[2019-01-23] MEDS ORDERED: Magnesium Oxide 400 MG TAB PO PRN ×2 (16:46)
[2019-01-23] MEDS ORDERED: Potassium Phosphate 9 MMOL in Sodium Chloride 0.9% 100 ML IVPB PRN (16:46)
[2019-01-23] MEDS ORDERED: CCU ELECTROLYTE REPLACEMENT PROTOCOL FS PRN (16:46)
[2019-01-23] MEDS ORDERED: Potassium Phosphate 12 MMOL in Sodium Chloride 0.9% 250 ML 250 ML IV PRN (16:46)
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
[2019-01-23] MEDS: Cefepime 2 GM in Sodium Chloride 0.9% 100 ML IVPB SCH (18:52)
[2019-01-23] MEDS: NS 0.9% w/ 20 MEQ KCL 1,000 ML/1,000 ML BAG IV SCH (18:53)
[2019-01-23] MEDS ORDERED: DISCONTINUE PREVIOUS NARCOTIC PAIN MEDICATIONS AND BENZODIAZEPINES FS SCH (20:33)
[2019-01-23] MEDS ORDERED: Morphine 2 MG/ML SYRINGE SLOW IVP PRN (20:33)
[2019-01-23] MEDS ORDERED: Propofol BOLUS 1,000 MG/100 ML VIAL IV PRN (20:33)
[2019-01-23] MEDS ORDERED: Fentanyl BOLUS 250 ML IVPB PRN (20:33)
[2019-01-23] MEDS: metroNIDAZOLE 500 MG in Premix Bag 1 BAG IVPB SCH (21:09)
[2019-01-23] MEDS: Propofol 1,000 MG/100 ML VIAL IV PRN (21:09)
[2019-01-23] MEDS: levETIRAcetam 500 MG TAB PER TUBE SCH (21:09)
[2019-01-23] MEDS: Famotidine/PF 20 mg/2ml Vial SLOW IVP SCH (21:09)
[2019-01-24] MEDS: Vancomycin HCl 1 GM in Premix Bag 1 BAG IVPB SCH ×2 (04:42→16:22)
[2019-01-24] MEDS: Cefepime 2 GM in Sodium Chloride 0.9% 100 ML IVPB SCH ×2 (04:44→16:22)
[2019-01-24] MEDS: metroNIDAZOLE 500 MG in Premix Bag 1 BAG IVPB SCH ×3 (05:25→21:10)
[2019-01-24] MEDS: NS 0.9% w/ 20 MEQ KCL 1,000 ML/1,000 ML BAG IV SCH ×2 (05:36→21:16)
[2019-01-24] MEDS: Propofol 1,000 MG/100 ML VIAL IV PRN (05:36)
[2019-01-24 05:46] LABS: Anion Gap 10 mmol/L (10-20); BUN (Urea Nitrogen) 10 mg/dL (8.9-20.6); Calc. Creatinine Clearance 129 mL/min (70-130); Calcium 7.5 mg/dL (7.8-10.44); Carbon Dioxide 22 mmol/L (22-29); Chloride 107 mmol/L (98-107); Estimated GFR-MDRD Greater than 90; Glucose 114 mg/dL (70-105); Potassium 3.5 mmol/L (3.5-5.1); Sodium 135 mmol/L (136-145)
[2019-01-24 06:11] LABS: Band 45 % (5-11); Hemoglobin 12.4 g/dL (14.0-18.0); Lymphocytes 6 % (21-51); MDiff Complete? YES; Mean Corpuscular HGB CONC 34.2 g/dL (32.0-36.0); Mean Corpuscular Hemoglobin 29.1 pg (27.0-31.0); Mean Corpuscular Volume 85.1 fL (78.0-98.0); Mean Platelet Volume 8.2 fL (7.4-10.4); Monocytes 5 % (0-10); Neutrophil 44 % (42-75); Platelet Count 99 thou/uL (130-400); Platelet Morphology Comment Appears Decreased; RBC Distribution Width 11.8 % (11.5-14.5); Red Blood Cell (RBC) Count 4.26 mill/uL (4.70-6.10); Reflex for Review?? NO
[2019-01-24 07:14] LABS: Actual Bicarbonate (HCO3a) 21.2 mEq/L (22-28); Base Excess (BEa) -2.4 mEq/L (-2.0 to +3.0); CO2 Tension 32.8 mmHg (35.0-45.0); Carboxyhemoglobin (COHb) 1.4 gm% (0.0-3.0); Hemoglobin (Hb) 12.4 g/dL (14.0-18.0); O2 Tension (PaO2) 66.8 mmHg (80.0-100.0); Potassium - ABG Lab 3.52 mmol/L (3.70-5.30); pH, Arterial 7.43 (7.35-7.45)
[2019-01-24 07:20] LABS: Puncture Site RRA
[2019-01-24] MEDS: levETIRAcetam 500 MG TAB PER TUBE SCH ×2 (08:51→21:00)
[2019-01-24] MEDS: Famotidine/PF 20 mg/2ml Vial SLOW IVP SCH ×2 (08:51→21:08)
[2019-01-24] MEDS: Scopolamine 1.5 mg/72 hour Patch TOP SCH (08:52)
[2019-01-24] MEDS ORDERED: FLU VACC QS2019-20(6MOS UP)/PF 60 MCG/0.5 ML SYRINGE IM ONE (09:00)
[2019-01-24] MEDS: OXcarbazepine 150 MG TAB PER TUBE SCH (09:09)
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
--- NOTE | 2019-01-24 18:38 | PDOC.HOSPP ---
- Subjective Encounter Date: 01/24/19 Encounter Time: 08:40 Subjective: Pt seen for followup re: acute hypoxic and hypercapnioc respiratory failure. Pt is intubated, unable to complete ROS. - Objective Vital Signs & Weight: Vital Signs (12 hours) Temp Pulse Resp Pulse Ox 01/24/19 16:00 98.8 F 01/24/19 12:51 87 23 H 99 01/24/19 12:00 98.8 F 98 01/24/19 11:22 99 24 H 93 L 01/24/19 10:48 79 01/24/19 10:00 18 01/24/19 08:00 98.1 F 18 99 01/24/19 07:09 70 Weight Admit Weight 156 lb Weight 156 lb 8.451 oz Most Recent Monitor Data Heart Rate from ECG 80 NIBP 125/71 NIBP BP-Mean 89 Respiration from ECG 20 SpO2 100 I&O: 01/23/19 01/24/19 01/25/19 06:59 06:59 06:59 Intake Total 1601.2 1369.0 Output Total 980 995 Balance 621.2 374.0 Result Diagrams: 01/24/19 05:14 01/24/19 05:14 Additional Labs: Labs and MARs reviewed by me EKG Reviewed by me: Yes (Tele: NSR) Hospitalist ROS - Medication Medications: Active Medications Generic Name Dose Route Start Last Admin Trade Name Freq PRN Reason Stop Dose Admin Albuterol/Ipratropium 3 ml 01/23/19 19:00 01/24/19 12:51 Duoneb NEB 3 ml [id number] CHAYO Administration Diltiazem HCl 30 mg 01/23/19 21:00 01/24/19 15:47 Cardizem PER TUBE Not Given TID CHAYO Famotidine 20 mg 01/23/19 21:00 01/24/19 08:51 Pepcid SLOW IVP 20 mg Q12HR CHAYO Administration Fentanyl Citrate 2,000 mcg/ 100 mls @ 0 mls/hr 01/23/19 15:30 01/24/19 08:02 Sodium Chloride IV 02/22/19 15:30 100 mls INF CHAYO Administration Protocol Per Protocol Vancomycin HCl 1 gm/ Device 200 mls @ 200 mls/hr 01/24/19 04:00 01/24/19 16: 22 IVPB 200 mls 0400,1600 CHAYO Administration Metronidazole 500 mg/ Device 100 mls @ 100 mls/hr 01/23/19 22:00 01/24/19 14: 00 IVPB 100 mls Q8HR CHAYO Administration Cefepime HCl 2 gm/ Sodium 100 mls @ 200 mls/hr 01/23/19 17:00 01/24/19 16:22 Chloride IVPB 100 mls 0500,1700 CHAYO Administration Potassium Chloride/Sodium Chloride 1,000 ml in 1,000 mls @ 75 mls/hr 01/23/19 17:45 01/24/19 05:36 Ns 0.9% W/ 20 Meq Kcl IV 1,000 mls .[id number] CHAYO Administration Levetiracetam 500 mg 01/23/19 21:00 01/24/19 08:51 Keppra PER TUBE 500 mg BID CHAYO Administration Oxcarbazepine 150 mg 01/24/19 09:00 01/24/19 09:09 Trileptal PER TUBE 150 mg DAILY CHAYO Administration Potassium Chloride 40 meq 01/23/19 16:46 01/24/19 09:09 Klor-Con PER TUBE 40 meq ASDIR PRN Administration FOR SERUM K+ 2.5-3.5 Propofol 1,000 mg 01/23/19 20:33 01/24/19 05:36 Diprivan IV 02/22/19 20:33 1,000 mg INF PRN Administration TO ACHIEVE GOAL RASS Protocol Scopolamine 1.5 mg 01/24/19 09:00 01/24/19 08:52 Transderm Scop TOP 1.5 mg Q3D CHAYO Administration Sodium Chloride 10 ml 01/23/19 21:00 01/24/19 08:53 Flush - Normal Saline IVF 10 ml Q12HR CHAYO Administration - Exam General - other findings: Malnourished Eye: anicteric sclera ENT: moist mucosa Neck - other findings: ETT, OG tube Heart: RRR, no rubs Respiratory: CTAB, no wheezes Gastrointestinal: soft, non-tender Extremities: no clubbing Skin - other findings: tattoos Neurological - other findings: LUE contracture Psychiatric - other findings: Unable to assess Hosp A/P (1) Acute respiratory failure with hypoxia and hypercapnia Code(s): J96.01 - ACUTE RESPIRATORY FAILURE WITH HYPOXIA; J96.02 - ACUTE RESPIRATORY FAILURE WITH HYPERCAPNIA Status: Acute (2) Aspiration into airway Code(s): T17.908A - UNSP FB IN RESP TRACT, PART UNSP CAUSING OTH INJURY, INIT Status: Acute (3) Anxiety and depression Code(s): F41.9 - ANXIETY DISORDER, UNSPECIFIED; F32.9 - MAJOR DEPRESSIVE DISORDER, SINGLE EPISODE, UNSPECIFIED Status: Chronic (4) Protein-calorie malnutrition, moderate Code(s): E44.0 - MODERATE PROTEIN-CALORIE MALNUTRITION Status: Chronic - Plan continue antibiotics Continue metronidazole, vancomycin IV and cefepime IV. Pt currently intubated. Swallow eval after extubation.
--- NOTE | 2019-01-24 18:54 | PDOC.HOSPP ---
- Subjective Encounter Date: 01/24/19 - Objective Vital Signs & Weight: Vital Signs (12 hours) Temp Pulse Resp Pulse Ox 01/24/19 18:42 97 01/24/19 18:41 85 20 97 01/24/19 16:00 98.8 F 01/24/19 12:51 87 23 H 99 01/24/19 12:00 98.8 F 98 01/24/19 11:22 99 24 H 93 L 01/24/19 10:48 79 01/24/19 10:00 18 01/24/19 08:00 98.1 F 18 99 01/24/19 07:09 70 Weight Admit Weight 156 lb Weight 156 lb 8.451 oz Most Recent Monitor Data Heart Rate from ECG 80 NIBP 125/71 NIBP BP-Mean 89 Respiration from ECG 20 SpO2 100 I&O: 01/23/19 01/24/19 01/25/19 06:59 06:59 06:59 Intake Total 1601.2 1369.0 Output Total 980 995 Balance 621.2 374.0 Result Diagrams: 01/24/19 05:14 01/24/19 05:14 Hospitalist ROS - Medication Medications: Active Medications Generic Name Dose Route Start Last Admin Trade Name Freq PRN Reason Stop Dose Admin Albuterol/Ipratropium 3 ml 01/23/19 19:00 01/24/19 18:41 Duoneb NEB 3 ml [id number] CHAYO Administration Diltiazem HCl 30 mg 01/23/19 21:00 01/24/19 15:47 Cardizem PER TUBE Not Given TID CHAYO Famotidine 20 mg 01/23/19 21:00 01/24/19 08:51 Pepcid SLOW IVP 20 mg Q12HR CHAYO Administration Fentanyl Citrate 2,000 mcg/ 100 mls @ 0 mls/hr 01/23/19 15:30 01/24/19 08:02 Sodium Chloride IV 02/22/19 15:30 100 mls INF CHAYO Administration Protocol Per Protocol Vancomycin HCl 1 gm/ Device 200 mls @ 200 mls/hr 01/24/19 04:00 01/24/19 16: 22 IVPB 200 mls 0400,1600 CHAYO Administration Metronidazole 500 mg/ Device 100 mls @ 100 mls/hr 01/23/19 22:00 01/24/19 14: 00 IVPB 100 mls Q8HR CHAYO Administration Cefepime HCl 2 gm/ Sodium 100 mls @ 200 mls/hr 01/23/19 17:00 01/24/19 16:22 Chloride IVPB 100 mls 0500,1700 CHAYO Administration Potassium Chloride/Sodium Chloride 1,000 ml in 1,000 mls @ 75 mls/hr 01/23/19 17:45 01/24/19 05:36 Ns 0.9% W/ 20 Meq Kcl IV 1,000 mls .[id number] CHAYO Administration Levetiracetam 500 mg 01/23/19 21:00 01/24/19 08:51 Keppra PER TUBE 500 mg BID CHAYO Administration Oxcarbazepine 150 mg 01/24/19 09:00 01/24/19 09:09 Trileptal PER TUBE 150 mg DAILY CHAYO Administration Potassium Chloride 40 meq 01/23/19 16:46 01/24/19 09:09 Klor-Con PER TUBE 40 meq ASDIR PRN Administration FOR SERUM K+ 2.5-3.5 Propofol 1,000 mg 01/23/19 20:33 01/24/19 05:36 Diprivan IV 02/22/19 20:33 1,000 mg INF PRN Administration TO ACHIEVE GOAL RASS Protocol Scopolamine 1.5 mg 01/24/19 09:00 01/24/19 08:52 Transderm Scop TOP 1.5 mg Q3D CHAYO Administration Sodium Chloride 10 ml 01/23/19 21:00 01/24/19 08:53 Flush - Normal Saline IVF 10 ml Q12HR CHAYO Administration Hosp A/P (1) Acute respiratory failure with hypoxia and hypercapnia Code(s): J96.01 - ACUTE RESPIRATORY FAILURE WITH HYPOXIA; J96.02 - ACUTE RESPIRATORY FAILURE WITH HYPERCAPNIA Status: Acute (2) Aspiration into airway Code(s): T17.908A - UNSP FB IN RESP TRACT, PART UNSP CAUSING OTH INJURY, INIT Status: Acute (3) Anxiety and depression Code(s): F41.9 - ANXIETY DISORDER, UNSPECIFIED; F32.9 - MAJOR DEPRESSIVE DISORDER, SINGLE EPISODE, UNSPECIFIED Status: Chronic (4) Protein-calorie malnutrition, moderate Code(s): E44.0 - MODERATE PROTEIN-CALORIE MALNUTRITION Status: Chronic - Plan Continue metronidazole, vancomycin IV and cefepime IV. Pt currently intubated. Swallow eval after extubation.
[2019-01-24] MEDS: fentaNYL 50 mcg/hour Patch TD SCH (21:04)
[2019-01-24] MEDS: Lorazepam 2 MG/ML VIAL SLOW IVP PRN (21:09)
[2019-01-25] MEDS: NS 0.9% w/ 20 MEQ KCL 1,000 ML/1,000 ML BAG IV SCH (00:30)
[2019-01-25] MEDS: Acetaminophen 650 MG Suppository PR PRN ×2 (02:16→18:21)
[2019-01-25] MEDS: Lorazepam 2 MG/ML VIAL SLOW IVP PRN ×2 (02:16→13:12)
[2019-01-25] MEDS: Vancomycin HCl 1 GM in Premix Bag 1 BAG IVPB SCH (03:12)
[2019-01-25] MEDS: Cefepime 2 GM in Sodium Chloride 0.9% 100 ML IVPB SCH ×2 (04:10→16:27)
[2019-01-25] MEDS: metroNIDAZOLE 500 MG in Premix Bag 1 BAG IVPB SCH ×3 (05:30→21:44)
[2019-01-25 07:10] LABS: #Eosinphils 0.1 thou/uL (0.0-0.7); #Lymphocytes 0.8 thou/uL (1.20-3.40); #Monocytes 0.8 thou/uL (0.11-0.59); #Neutrophils 7.7 thou/uL (1.40-6.50); %Basophils 0.3 % (0.0-1.0); %Eosinophils 1.2 % (0.0-10.0); %Lymphocytes 8.8 % (21.0-51.0); %Monocytes 8.1 % (0.0-10.0); %Neutrophils 81.6 % (42.0-75.0); Hemoglobin 12.6 g/dL (14.0-18.0); Mean Corpuscular HGB CONC 31.8 g/dL (32.0-36.0); Mean Corpuscular Hemoglobin 28.3 pg (27.0-31.0); Mean Corpuscular Volume 88.9 fL (78.0-98.0); Mean Platelet Volume 10.1 fL (7.4-10.4); Platelet Count 84 thou/uL (130-400); RBC Distribution Width 12.3 % (11.5-14.5); Red Blood Cell (RBC) Count 4.45 mill/uL (4.70-6.10); White Blood Cell (WBC) Count 9.4 thou/uL (4.8-10.8)
[2019-01-25 07:33] LABS: Anion Gap 14 mmol/L (10-20); BUN (Urea Nitrogen) 6 mg/dL (8.9-20.6); Calc. Creatinine Clearance 133 mL/min (70-130); Calcium 7.9 mg/dL (7.8-10.44); Carbon Dioxide 17 mmol/L (22-29); Chloride 109 mmol/L (98-107); Estimated GFR-MDRD Greater than 90; Glucose 88 mg/dL (70-105); Potassium 3.7 mmol/L (3.5-5.1); Sodium 136 mmol/L (136-145)
[2019-01-25] MEDS: Famotidine/PF 20 mg/2ml Vial SLOW IVP SCH ×2 (08:09→20:31)
[2019-01-25] MEDS: OXcarbazepine 150 MG TAB PER TUBE SCH (08:12)
--- NOTE | 2019-01-25 09:55 | PRG ---
DATE OF SERVICE: 01/25/2019 SUBJECTIVE: Tani Shah was brought in with respiratory failure, post intubation. He was extubated yesterday, doing well. OBJECTIVE: VITAL SIGNS: His temperature is 99, sats 90%, blood pressure 130/75, respirations 18. GENERAL: He has traumatic brain injury, not much verbal communication. CHEST: Decreased breath sounds. CARDIAC: Sinus tach. ABDOMEN: Distended, but soft. LABORATORY DATA: White count 9,000, hemoglobin and hematocrit unremarkable. Lytes are normal. Blood culture, coag-negative staph. ASSESSMENT AND PLAN: Respiratory failure, pneumonia, traumatic brain injury. Continue antibiotics and get cultures back, thereafter deescalate. Chest x-ray being ordered. Continue supportive care. We will follow. Discussed with family thereafter. Job ID: [id number]
--- NOTE | 2019-01-25 10:36 | RAD ---
CHEST ONE VIEW: HISTORY: Respiratory failure. COMPARISON: 01/23/2019 FINDINGS: Stable cardiomegaly. Stable surgical clips in the AP window. Interval removal of endotracheal and ricky ogastric tubes. Persistent elevation of left hemidiaphragm. There is increased opacification in the l eft lung base, likely due to progression of air space disease. Additionally there are patchy intersti tial opacities that have developed in the right lung. No pneumothorax or acute osseous abnormalities. IMPRESSION: 1. Worsening opacification of the lung parenchyma, suggesting interstitial infiltrate with a more foc al alveolar infiltration in the left mid lung. 2. Persistent elevation of the left hemidiaphragm. 3. Interval removal of endotracheal and nasogastric tubes. POS: [facility]
[2019-01-25 15:47] LABS: Vancomycin, Trough 9.9 ug/mL
[2019-01-25] MEDS: Vancomycin HCl 1.5 GM in Sodium Chloride 0.9% 250 ML 300 ML IVPB SCH (17:09)
--- NOTE | 2019-01-25 17:39 | PDOC.HOSPP ---
- Subjective Encounter Date: 01/25/19 Encounter Time: 09:40 Subjective: Pt seen for followup re: acute hypoxic respiratory failure. Pt is nonverbal, unable to complete ROS. - Objective Vital Signs & Weight: Vital Signs (12 hours) Temp Pulse Resp 01/25/19 16:00 99.9 F H 01/25/19 12:42 97 22 H 01/25/19 11:00 98.8 F 01/25/19 08:00 99.1 F 01/25/19 07:58 84 20 Weight Admit Weight 156 lb Weight 156 lb 1.396 oz Most Recent Monitor Data Heart Rate from ECG 87 NIBP 155/86 NIBP BP-Mean 109 Respiration from ECG 18 SpO2 94 I&O: 01/24/19 01/25/19 01/26/19 06:59 06:59 06:59 Intake Total 1601.2 2517.0 871 Output Total 980 2055 990 Balance 621.2 462.0 -119 Result Diagrams: 01/25/19 06:53 01/25/19 06:53 Additional Labs: Labs and MARs reviewed by pr Hospitalist ROS - Medication Medications: Active Medications Generic Name Dose Route Start Last Admin Trade Name Freq PRN Reason Stop Dose Admin Acetaminophen 650 mg 01/23/19 16:26 01/25/19 02:16 Tylenol [place] 650 mg Q4H PRN Administration Headache/Fever/Mild Pain (1-3) Albuterol/Ipratropium 3 ml 01/23/19 19:00 01/25/19 12:42 Duoneb NEB 3 ml [id number] CHAYO Administration Diltiazem HCl 30 mg 01/23/19 21:00 01/25/19 14:34 Cardizem PER TUBE Not Given TID CHAYO Famotidine 20 mg 01/23/19 21:00 01/25/19 08:09 Pepcid SLOW IVP 20 mg Q12HR CHAYO Administration Fentanyl 50 mcg 01/24/19 21:00 01/24/19 21:04 Duragesic TD 50 mcg Q3D CHAYO Administration Fentanyl Citrate 2,000 mcg/ 100 mls @ 0 mls/hr 01/23/19 15:30 01/24/19 08:02 Sodium Chloride IV 02/22/19 15:30 100 mls INF CHAYO Administration Protocol Per Protocol Metronidazole 500 mg/ Device 100 mls @ 100 mls/hr 01/23/19 22:00 01/25/19 13: 13 IVPB 100 mls Q8HR CHAYO Administration Cefepime HCl 2 gm/ Sodium 100 mls @ 200 mls/hr 01/23/19 17:00 01/25/19 16:27 Chloride IVPB 100 mls 0500,1700 CHAYO Administration Potassium Chloride/Sodium Chloride 1,000 ml in 1,000 mls @ 75 mls/hr 01/23/19 17:45 01/25/19 00:30 Ns 0.9% W/ 20 Meq Kcl IV 1,000 mls .[id number] CHAYO Administration Levetiracetam 500 mg/ Device 100 mls @ 200 mls/hr 01/25/19 09:00 01/25/19 08: 09 IVPB 100 mls BID CHAYO Administration Vancomycin HCl 1.5 gm/ Sodium 300 mls @ 200 mls/hr 01/25/19 16:00 01/25/19 17 :09 Chloride IVPB 300 mls 0400,1600 CHAYO Administration Lorazepam 1 mg 01/24/19 20:36 01/25/19 13:12 Ativan SLOW IVP 1 mg Q4H PRN Administration Anxiety/Agitation Oxcarbazepine 150 mg 01/24/19 09:00 01/25/19 08:12 Trileptal PER TUBE Not Given DAILY [facility] Potassium Chloride 40 meq 01/23/19 16:46 01/24/19 09:09 Klor-Con PER TUBE 40 meq ASDIR PRN Administration FOR SERUM K+ 2.5-3.5 Propofol 1,000 mg 01/23/19 20:33 01/24/19 05:36 Diprivan IV 02/22/19 20:33 1,000 mg INF PRN Administration TO ACHIEVE GOAL RASS Protocol Scopolamine 1.5 mg 01/24/19 09:00 01/24/19 08:52 Transderm Scop TOP 1.5 mg Q3D CHAYO Administration Sodium Chloride 10 ml 01/23/19 21:00 01/25/19 08:12 Flush - Normal Saline IVF Not Given Q12HR CHAYO - Exam General - other findings: Lethargic Eye: anicteric sclera ENT: moist mucosa Neck: supple, symmetric Heart: RRR, no rubs Respiratory: CTAB, no rales Gastrointestinal: soft, non-tender Neurological: hemiplegia Psychiatric - other findings: Unable to assess Hosp A/P (1) Acute respiratory failure with hypoxia and hypercapnia Code(s): J96.01 - ACUTE RESPIRATORY FAILURE WITH HYPOXIA; J96.02 - ACUTE RESPIRATORY FAILURE WITH HYPERCAPNIA Status: Acute (2) Aspiration into airway Code(s): T17.908A - UNSP FB IN RESP TRACT, PART UNSP CAUSING OTH INJURY, INIT Status: Acute (3) Anxiety and depression Code(s): F41.9 - ANXIETY DISORDER, UNSPECIFIED; F32.9 - MAJOR DEPRESSIVE DISORDER, SINGLE EPISODE, UNSPECIFIED Status: Chronic (4) Protein-calorie malnutrition, moderate Code(s): E44.0 - MODERATE PROTEIN-CALORIE MALNUTRITION Status: Chronic - Plan continue antibiotics Continue IV metronidazole, cefepime and vancomycin. s/p extubation yesterday. Continue Keppra. Pt not on anti-coagulation, likely due to fall risk. Hyponatremia resolved.
[2019-01-25] MEDS ORDERED: diphenhydrAMINE 50 MG/ML VIAL ONE (22:19)
[2019-01-26] MEDS: Lorazepam 2 MG/ML VIAL SLOW IVP PRN ×3 (02:46→19:54)
[2019-01-26] MEDS: diphenhydrAMINE 50 MG/ML VIAL IVP SCH ×2 (03:13→16:21)
[2019-01-26] MEDS: NS 0.9% w/ 20 MEQ KCL 1,000 ML/1,000 ML BAG IV SCH ×4 (03:31→22:16)
[2019-01-26] MEDS: Vancomycin HCl 1.5 GM in Sodium Chloride 0.9% 250 ML 300 ML IVPB SCH ×2 (03:56→16:21)
[2019-01-26 05:31] LABS: #Eosinphils 0.2 thou/uL (0.0-0.7); #Lymphocytes 1.1 thou/uL (1.20-3.40); #Monocytes 0.8 thou/uL (0.11-0.59); #Neutrophils 7.3 thou/uL (1.40-6.50); %Basophils 0.3 % (0.0-1.0); %Lymphocytes 11.6 % (21.0-51.0); %Monocytes 8.9 % (0.0-10.0); %Neutrophils 77.1 % (42.0-75.0); Hemoglobin 12.7 g/dL (14.0-18.0); Mean Corpuscular HGB CONC 32.7 g/dL (32.0-36.0); Mean Corpuscular Hemoglobin 28.4 pg (27.0-31.0); Mean Corpuscular Volume 87.1 fL (78.0-98.0); Mean Platelet Volume 8.4 fL (7.4-10.4); Platelet Count 106 thou/uL (130-400); RBC Distribution Width 12.1 % (11.5-14.5); Red Blood Cell (RBC) Count 4.45 mill/uL (4.70-6.10); White Blood Cell (WBC) Count 9.5 thou/uL (4.8-10.8)
[2019-01-26 05:39] LABS: Anion Gap 15 mmol/L (10-20); BUN (Urea Nitrogen) 6 mg/dL (8.9-20.6); Calc. Creatinine Clearance 139 mL/min (70-130); Calcium 8.4 mg/dL (7.8-10.44); Carbon Dioxide 22 mmol/L (22-29); Chloride 106 mmol/L (98-107); Estimated GFR-MDRD Greater than 90; Glucose 74 mg/dL (70-105); Potassium 3.5 mmol/L (3.5-5.1); Sodium 139 mmol/L (136-145)
[2019-01-26] MEDS: Cefepime 2 GM in Sodium Chloride 0.9% 100 ML IVPB SCH ×3 (05:53→19:49)
[2019-01-26] MEDS: OXcarbazepine 150 MG TAB PER TUBE SCH (07:49)
[2019-01-26] MEDS: Famotidine/PF 20 mg/2ml Vial SLOW IVP SCH ×2 (08:07→20:18)
[2019-01-26] MEDS: metroNIDAZOLE 500 MG in Premix Bag 1 BAG IVPB SCH ×3 (08:50→22:15)
--- NOTE | 2019-01-26 09:50 | PRG ---
DATE OF SERVICE: 01/26/2019 SUBJECTIVE: Tani Shah remains in the ICU, tachypneic and tachycardic. OBJECTIVE: VITAL SIGNS: Pulse 103, , blood pressure 140/80, saturations 99%. Temperature is 99.2. CHEST: Decreased breath sounds. No wheezing. CARDIAC: Sinus tach. ABDOMEN: Soft. NEUROLOGIC: Unresponsive. LABORATORY DATA: His white count is 9000, platelet count is 106. Lytes are normal. ASSESSMENT: 1. Previous traumatic brain injury. 2. Presumed aspiration pneumonia. 3. Encephalopathy. 4. Dysphagia. PLAN: NG tube is being placed. Start nutrition as well as his home medication. Discuss with his mother when they come, but he is still a full code. We will follow in the ICU area. Job ID: [id number]
--- NOTE | 2019-01-26 11:13 | RAD ---
PORTABLE CHEST 1 VIEW: Date: 01/26/19 Time: 0934 hours HISTORY: Pneumonia. FINDINGS/IMPRESSION: Comparison made with exam of previous day. There has been interval placement of a nasogastric tube with tip in the gastric cardia. The heart size is stable. There is patchy consolidation in the left lower lung consistent with pneumo unruly. No pneumothoraces or large effusions are seen. POS: [facility]
--- NOTE | 2019-01-26 13:30 | PDOC.HOSPP ---
- Subjective Encounter Date: 01/26/19 Encounter Time: 09:00 Subjective: Pt seen for followup re: acute hypoxic respiratory failure. Pt non verbal, unable to complete ROS. - Objective Vital Signs & Weight: Vital Signs (12 hours) Temp Pulse Resp 01/26/19 13:07 87 22 H 01/26/19 11:00 98.6 F 01/26/19 08:00 99.2 F 01/26/19 07:18 111 H 40 H 01/26/19 04:00 99.4 F Weight Admit Weight 156 lb Weight 147 lb 7.828 oz Most Recent Monitor Data Heart Rate from ECG 89 NIBP 127/84 NIBP BP-Mean 98 Respiration from ECG 26 SpO2 96 I&O: 01/25/19 01/26/19 01/27/19 06:59 06:59 06:59 Intake Total 2517.0 2140 Output Total 2055 0544 625 Balance 462.0 167 -625 Result Diagrams: 01/26/19 04:39 01/26/19 04:39 Additional Labs: Labs and MARs reviewed by me EKG Reviewed by me: Yes (Tele: NSR) Hospitalist ROS - Medication Medications: Active Medications Generic Name Dose Route Start Last Admin Trade Name Freq PRN Reason Stop Dose Admin Acetaminophen 650 mg 01/23/19 16:26 01/25/19 18:21 Tylenol HI 650 mg Q4H PRN Administration Headache/Fever/Mild Pain (1-3) Albuterol/Ipratropium 3 ml 01/23/19 19:00 01/26/19 13:07 Duoneb NEB 3 ml [id number] CHAYO Administration Diltiazem HCl 30 mg 01/23/19 21:00 01/26/19 09:51 Cardizem PER TUBE 30 mg TID CHAYO Administration Diphenhydramine HCl 50 mg 01/26/19 03:30 01/26/19 03:13 Benadryl IVP 50 mg 0330,1530 CHAYO Administration Famotidine 20 mg 01/23/19 21:00 01/26/19 08:07 Pepcid SLOW IVP 20 mg Q12HR CHAYO Administration Fentanyl 50 mcg 01/24/19 21:00 01/24/19 21:04 Duragesic TD 50 mcg Q3D CHAYO Administration Fentanyl Citrate 2,000 mcg/ 100 mls @ 0 mls/hr 01/23/19 15:30 01/24/19 08:02 Sodium Chloride IV 02/22/19 15:30 100 mls INF CHAYO Administration Protocol Per Protocol Potassium Chloride 40 meq/ 270 mls @ 135 mls/hr 01/23/19 16:46 01/26/19 06:23 Sodium Chloride IVPB 270 mls ASDIR PRN Administration FOR SERUM K+ 2.5 - 3.5 Potassium Chloride/Sodium Chloride 1,000 ml in 1,000 mls @ 75 mls/hr 01/23/19 17:45 01/26/19 03:31 Ns 0.9% W/ 20 Meq Kcl IV 1,000 mls .[id number] CHAYO Administration Levetiracetam 500 mg/ Device 100 mls @ 200 mls/hr 01/25/19 09:00 01/26/19 11: 28 IVPB 100 mls BID CHAYO Administration Vancomycin HCl 1.5 gm/ Sodium 300 mls @ 200 mls/hr 01/25/19 16:00 01/26/19 03 :56 Chloride IVPB 300 mls 0400,1600 CHAYO Administration Cefepime HCl 2 gm/ Sodium 100 mls @ 200 mls/hr 01/26/19 08:00 01/26/19 09:25 Chloride IVPB 100 mls 0800,2000 CHAYO Administration Metronidazole 500 mg/ Device 100 mls @ 100 mls/hr 01/26/19 07:00 01/26/19 08: 50 IVPB 100 mls 0700,1500,2300 CHAYO Administration Lorazepam 1 mg 01/24/19 20:36 01/26/19 09:18 Ativan SLOW IVP 1 mg Q4H PRN Administration Anxiety/Agitation Oxcarbazepine 150 mg 01/24/19 09:00 01/26/19 07:49 Trileptal PER TUBE Not Given DAILY [facility] Potassium Chloride 40 meq 01/23/19 16:46 01/24/19 09:09 Klor-Con PER TUBE 40 meq ASDIR PRN Administration FOR SERUM K+ 2.5-3.5 Propofol 1,000 mg 01/23/19 20:33 01/24/19 05:36 Diprivan IV 02/22/19 20:33 1,000 mg INF PRN Administration TO ACHIEVE GOAL RASS Protocol Scopolamine 1.5 mg 01/24/19 09:00 01/24/19 08:52 Transderm Scop TOP 1.5 mg Q3D CHAYO Administration Sodium Chloride 10 ml 01/23/19 21:00 01/26/19 07:49 Flush - Normal Saline IVF Not Given Q12HR CHAYO - Exam General - other findings: Lethargic Eye: anicteric sclera ENT: moist mucosa Neck: supple Heart: RRR, no rubs Respiratory: CTAB, no rales Gastrointestinal: soft, non-tender Musculoskeletal: diffuse muscle atrophy Psychiatric: lethargic Hosp A/P (1) Acute respiratory failure with hypoxia and hypercapnia Code(s): J96.01 - ACUTE RESPIRATORY FAILURE WITH HYPOXIA; J96.02 - ACUTE RESPIRATORY FAILURE WITH HYPERCAPNIA Status: Acute (2) Aspiration into airway Code(s): T17.908A - UNSP FB IN RESP TRACT, PART UNSP CAUSING OTH INJURY, INIT Status: Acute (3) Anxiety and depression Code(s): F41.9 - ANXIETY DISORDER, UNSPECIFIED; F32.9 - MAJOR DEPRESSIVE DISORDER, SINGLE EPISODE, UNSPECIFIED Status: Chronic (4) Protein-calorie malnutrition, moderate Code(s): E44.0 - MODERATE PROTEIN-CALORIE MALNUTRITION Status: Chronic - Plan continue antibiotics Continue IV metronidazole, cefepime and vancomycin. s/p extubation, now on oxygen via nasal cannula. Pt is on Keppra. Pt not on anti-coagulation, likely due to fall risk.
--- NOTE | 2019-01-26 14:36 | PQF ---
DATE: 01-26-19 ATTN: DR. CIRO QUINTERO Please exercise your independent, professional judgment in responding to the clarification form. Clinical indicators are provided on the bottom of this form for your review Please check appropriate box(s) to clarify if the following diagnosis has been ruled in or ruled out: SEVERE SEPSIS [ ] Ruled in diagnosis [ ] Continue to treat [ ] Resolved [ ] Ruled out diagnosis [ ] Other diagnosis [ ] Unable to determine In addition, please specify: Present on Admission (POA): [ ] Yes [ ] No [ ] Unable to determine For continuity of documentation, please document condition throughout progress notes and discharge summary. Thank You. CLINICAL INDICATORS - SIGNS / SYMPTOMS / LABS: ER DX 01-23-19: PNEUMONIA UNSPECIFIED ORGANISM, ACUTE RESPIRATORY FAILURE, SEVERE SEPSIS W/O SEPTIC SHOCK H&P 01-23-19: ACUTE HYPOXIC AND HYPERCAPNIC RESPIRATORY FAILURE, ASPIRATION PNEUMONIA, HYPOKALEMIA, THROMBOCYTOPENIA BANDS 01-24-19: 45% TEMP: 01-24-19: 99.2 01-25-19: 99.4, 100.8, 99.3, 99.9, 99.7 PULSE: 01-23-19: 100, 101 01-25-19: 164 01-26-19: 111 RISK FACTORS: ER NOTES 01-23-19: DIFFICULTY BREATHING, FROM NH, HX TBI, JOHNSON CVA UNSPECIFIED HEMIPLEGIA, HX OF TRACH AND REVERSAL, PEG TUBE TUBE PLACEMENT, HX OF ABDOMINAL WOUND WASHOUT AND CLOSURE, BIPOLAR TREATMENTS: ER NOTES 01-23-19: FLAGYL IV, CEFEPIME IV, NS IVF, LEVAQUIN IV, VANCOMYCIN IV (This form is maintained as a part of the permanent medical record) 2014 [employer], [place]. All Rights Reserved [email or web address] Office: [phone] [facility]
--- NOTE | 2019-01-26 14:55 | PQF ---
DATE: 01-26-19 ATTN: DR. CIRO QUINTERO Please exercise your independent, professional judgment in responding to the clarification form. Clinical indicators are provided on the bottom of this form for your review Please check appropriate box(s): [ ] Aspiration Pneumonia [ ] Empirically treating Gram Negative Pneumonia [ ] Other diagnosis [ ] Unable to determine In addition, please specify: Present on Admission (POA): [ ] Yes [ ] No [ ] Unable to determine For continuity of documentation, please document condition throughout progress notes and discharge summary. Thank You. CLINICAL INDICATORS - SIGNS / SYMPTOMS / LABS: ER DX 01-23-19: PNEUMONIA UNSPEC ORGANISM, ACUTE RESPIRATORY FAILURE, SEVERE SEPSIS W/O SEPTIC SHOCK H&P 01-23-19: ACUTE HYPOXIC AND HYPERCAPNIC RESPIRATORY FAILURE, ASPIRATION PNEUMONIA CONSULT NOTE DR. CAROLYN MORLEY 01-24-19: ACUTE RESPIRATORY FAILURE WITH HYPOXIA AND HYPERCAPNIA, ATELECTASIS, LACTIC ACIDOSIS, THE PATIENTS CURRENT CONDITION IS LIKELY DUE TO ASPIRATION THE PATIENT HAS A HX OF DYSPHAGIA. WHILE ASPIRATION PNEUMONIA IS A CONCERN, THIS MORE THAN LIKELY REPRESENTS ISOLATED ASPIRATION THERE ARE NO OBJECTIVE FINDINGS AT THIS TIME SUGGESTIVE OF INFECTION. CONSULT NOTE DR. QUINTERO 01-26-19: ACUTE RESP. FAILURE WITH HYPOXIA AND HYPERCAPNIA, ASPIRATION INTO AIRWAY ER NOTES 01-26-19: CEFEPIME IV, LEVAQUIN, VANCOMYCIN, NS IVF RISK FACTORS: CONSULT NOTE DR. CAROLYN MORLEY 01-24-19: THE PATIENTS CURRENT CONDITION IS LIKELY DUE TO ASPIRATION THE PATIENT HAS A HX OF DYSPHAGIA. WHILE ASPIRATION PNEUMONIA IS A CONCERN TREATMENTS: ER NOTES 01-26-19: CEFEPIME IV, LEVAQUIN, VANCOMYCIN, NS IVF PULMONARY CONSULT 01-24-19 (This form is maintained as a part of the permanent medical record) 2014 [employer], [employer]. All Rights Reserved [email or web address] Office: [phone] [facility]
--- NOTE | 2019-01-26 15:05 | PQF ---
DATE: 01-26-19 ATTN: DR. CIRO QUINTERO Please exercise your independent, professional judgment in responding to the clarification form. Clinical indicators are provided on the bottom of this form for your review Please check appropriate box(s): [ ] Encephalopathy: Type: [ ] Acute [ ] Subacute [ ] Chronic Etiology: [ ] Metabolic [ ] Toxic [ ] Hypoxic [ ] Septic [ ] Other (please specify) [ ] Transient Alteration of Awareness [ ] Other diagnosis [ ] Unable to determine In addition, please specify: Present on Admission (POA): [ ] Yes [ ] No [ ] Unable to determine For continuity of documentation, please document condition throughout progress notes and discharge summary. Thank You. CLINICAL INDICATORS - SIGNS / SYMPTOMS / LABS / RESULTS AND LOCATION IN EMR: CONSULT NOTE DR. CAROLYN MORLEY 01-24-19: ROS UNOBTAINABLE: DUE TO MENTAL STATUS ( WELL INTUBATION) CONSULT NOTE DR. CARTER 01-26-19: UNRESPONSIVE, ENCEPHALOPATHY RISK FACTORS / RESULTS AND LOCATION IN EMR: H&P 01-23-19: FROM SKILLED NURSING, HX TRAUMATIC BRAIN INJURY, BIPOLAR, DEPRESSION ER DX 01-26-19: PNEUMONIA UNSPECIFIED ORGANISM, ACUTE RESPIRATORY FAILURE , SEVERE SEPSIS W/O SEPTIC SHOCK TREATMENTS / RESULTS AND LOCATION IN EMR: ER NOTES 01-23-19: FLAGYL IV, CEFEPIME IV, VANCOMYCIN IV, LEVAQUIN IV, NS IVF (This form is maintained as a part of the permanent medical record) 2014 [employer], [employer]. All Rights Reserved [email or web address] Office: [phone] [facility]
[2019-01-27] MEDS: diphenhydrAMINE 50 MG/ML VIAL IVP SCH ×2 (02:47→15:30)
[2019-01-27] MEDS: Vancomycin HCl 1.5 GM in Sodium Chloride 0.9% 250 ML 300 ML IVPB SCH ×2 (03:03→03:47)
[2019-01-27] MEDS: Lorazepam 2 MG/ML VIAL SLOW IVP PRN ×3 (03:04→13:49)
[2019-01-27 03:21] LABS: #Basophils 0.1 thou/uL (0.0-0.2); #Eosinphils 0.4 thou/uL (0.0-0.7); #Lymphocytes 1.2 thou/uL (1.20-3.40); #Monocytes 0.7 thou/uL (0.11-0.59); #Neutrophils 6.1 thou/uL (1.40-6.50); %Basophils 0.7 % (0.0-1.0); %Eosinophils 4.3 % (0.0-10.0); %Lymphocytes 14.3 % (21.0-51.0); %Monocytes 8.2 % (0.0-10.0); %Neutrophils 72.4 % (42.0-75.0); Hemoglobin 12.3 g/dL (14.0-18.0); Mean Corpuscular HGB CONC 33.6 g/dL (32.0-36.0); Mean Corpuscular Hemoglobin 28.8 pg (27.0-31.0); Mean Corpuscular Volume 85.7 fL (78.0-98.0); Mean Platelet Volume 7.5 fL (7.4-10.4); Platelet Count 133 thou/uL (130-400); RBC Distribution Width 12.3 % (11.5-14.5); Red Blood Cell (RBC) Count 4.27 mill/uL (4.70-6.10); White Blood Cell (WBC) Count 8.5 thou/uL (4.8-10.8)
[2019-01-27 03:40] LABS: Vancomycin, Trough 12.4 ug/mL
[2019-01-27 03:42] LABS: Anion Gap 12 mmol/L (10-20); BUN (Urea Nitrogen) 4 mg/dL (8.9-20.6); Calc. Creatinine Clearance 120 mL/min (70-130); Carbon Dioxide 23 mmol/L (22-29); Chloride 105 mmol/L (98-107); Estimated GFR-MDRD Greater than 90; Glucose 81 mg/dL (70-105); Potassium 3.4 mmol/L (3.5-5.1); Sodium 137 mmol/L (136-145)
[2019-01-27] MEDS: metroNIDAZOLE 500 MG in Premix Bag 1 BAG IVPB SCH ×2 (06:27→14:34)
[2019-01-27] MEDS: Cefepime 2 GM in Sodium Chloride 0.9% 100 ML IVPB SCH ×2 (08:33→20:41)
[2019-01-27] MEDS: Famotidine/PF 20 mg/2ml Vial SLOW IVP SCH ×2 (08:34→20:42)
[2019-01-27] MEDS: Scopolamine 1.5 mg/72 hour Patch TOP SCH (08:43)
[2019-01-27] MEDS: OXcarbazepine 150 MG TAB PER TUBE SCH (08:48)
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
[2019-01-27] MEDS: NS 0.9% w/ 20 MEQ KCL 1,000 ML/1,000 ML BAG IV SCH ×2 (09:20→14:08)
--- NOTE | 2019-01-27 09:46 | PRG ---
DATE OF SERVICE: 01/27/2019 SUBJECTIVE: This morning, he remains encephalopathic. An NG tube was placed in. OBJECTIVE: VITAL SIGNS: Temperature 99, pulse is 100, sats 99% on 2 L, and blood pressure 104/87. CHEST: Diffuse wheezing, rhonchi. CARDIAC: Sinus tach. ABDOMEN: No masses. LABORATORY DATA: Lytes are normal. Hemoglobin and hematocrit unremarkable. Cultures are negative. IMPRESSION: 1. Presumed aspiration. 2. Seizure disorder. 3. Encephalopathy, bronchospasm. PLAN: Added nebs to his present treatment. Discontinue vancomycin. All cultures so far negative. Continue to observe in the ICU. Job ID: [id number]
[2019-01-27] MEDS: methylPREDNISolone Sod Succ 40 MG VIAL IVP SCH ×2 (12:45→17:33)
[2019-01-27] MEDS: Scopolamine 1.5 mg/72 hour Patch TD SCH (13:00)
[2019-01-27] MEDS ORDERED: Scopolamine 1.5 mg/72 hour Patch TD SCH (14:00)
--- NOTE | 2019-01-27 14:56 | PDOC.PALFU ---
Palliative Care Follow-up Note Spoke with patient mother who is also the MPOA. Mother relayed that she has three sons, Tani is her youngest and her oldest last year after committing suicide. Reviewed current health status with Ms Gamez and she relayed that she wanted Everything done for her son in relation to resuscitation status. She lives in [place] and does not drive, she said she may have her drive her here Thursday, she was encouraged to come see her son and for her to visit with care providers/physicians in person to discuss Goals of Care. Ms Gamez appears to have difficulty in discussing her sons chronic traumatic brain injury and related quality of life.
--- NOTE | 2019-01-27 16:42 | PDOC.HOSPP ---
- Subjective Encounter Date: 01/27/19 Encounter Time: 09:20 Subjective: Pt seen for followup re: acute hypoxic and hypercapnic respiratory failure. Nonverbal, unable to complete ROS. - Objective Vital Signs & Weight: Vital Signs (12 hours) Temp Pulse Resp Pulse Ox 01/27/19 16:00 98.6 F 01/27/19 13:51 98 27 H 99 01/27/19 12:00 98.8 F 98 01/27/19 08:00 99 F 98 01/27/19 07:54 99 01/27/19 07:52 88 22 H 99 Weight Admit Weight 156 lb Weight 148 lb 2.41 oz Most Recent Monitor Data Heart Rate from ECG 101 NIBP 120/83 NIBP BP-Mean 95 Respiration from ECG 29 SpO2 99 I&O: 01/26/19 01/27/19 01/28/19 06:59 06:59 06:59 Intake Total 2140 5242 470 Output Total 1973 3800 2660 Balance 167 1442 -2190 Result Diagrams: 01/27/19 03:05 01/27/19 03:05 Additional Labs: Labs and MARs reviewed by me EKG Reviewed by me: Yes (Tele: NSR) Hospitalist ROS - Review of Systems ROS unobtainable: due to mental status - Medication Medications: Active Medications Generic Name Dose Route Start Last Admin Trade Name Freq PRN Reason Stop Dose Admin Acetaminophen 650 mg 01/23/19 16:26 01/25/19 18:21 Tylenol [place] 650 mg Q4H PRN Administration Headache/Fever/Mild Pain (1-3) Albuterol/Ipratropium 3 ml 01/23/19 19:00 01/27/19 13:51 Duoneb NEB 3 ml [id number] CHAYO Administration Diltiazem HCl 30 mg 01/23/19 21:00 01/27/19 14:34 Cardizem PER TUBE 30 mg TID CHAYO Administration Diphenhydramine HCl 50 mg 01/26/19 03:30 01/27/19 02:47 Benadryl IVP 50 mg 0330,1530 CHAYO Administration Famotidine 20 mg 01/23/19 21:00 01/27/19 08:34 Pepcid SLOW IVP 20 mg Q12HR CHAYO Administration Fentanyl 50 mcg 01/24/19 21:00 01/24/19 21:04 Duragesic TD 50 mcg Q3D CHAYO Administration Fentanyl Citrate 2,000 mcg/ 100 mls @ 0 mls/hr 01/23/19 15:30 01/24/19 08:02 Sodium Chloride IV 02/22/19 15:30 100 mls INF CHAYO Administration Protocol Per Protocol Potassium Chloride 40 meq/ 270 mls @ 135 mls/hr 01/23/19 16:46 01/26/19 06:23 Sodium Chloride IVPB 270 mls ASDIR PRN Administration FOR SERUM K+ 2.5 - 3.5 Potassium Chloride/Sodium Chloride 1,000 ml in 1,000 mls @ 75 mls/hr 01/23/19 17:45 01/27/19 14:08 Ns 0.9% W/ 20 Meq Kcl IV 1,000 mls .[id number] CHAYO Administration Levetiracetam 500 mg/ Device 100 mls @ 200 mls/hr 01/25/19 09:00 01/27/19 08: 12 IVPB 100 mls BID CHAYO Administration Cefepime HCl 2 gm/ Sodium 100 mls @ 200 mls/hr 01/26/19 08:00 01/27/19 08:33 Chloride IVPB 100 mls 0800,2000 CHAYO Administration Metronidazole 500 mg/ Device 100 mls @ 100 mls/hr 01/26/19 07:00 01/27/19 14: 34 IVPB 100 mls 0700,1500,2300 CHAYO Administration Lorazepam 2 mg 01/23/19 20:33 01/27/19 05:18 Ativan SLOW IVP 02/22/19 20:33 2 mg Q1H PRN Administration Breakthrough agitation Lorazepam 1 mg 01/24/19 20:36 01/27/19 13:49 Ativan SLOW IVP 1 mg Q4H PRN Administration Anxiety/Agitation Methylprednisolone Sodium Succinate 40 mg 01/27/19 12:00 01/27/19 12:45 Solu-Medrol IVP 40 mg Q6HR CHAYO Administration Oxcarbazepine 150 mg 01/24/19 09:00 01/27/19 08:48 Trileptal PER TUBE 150 mg DAILY CHAYO Administration Potassium Chloride 40 meq 01/23/19 16:46 01/27/19 04:05 Klor-Con PER TUBE 40 meq ASDIR PRN Administration FOR SERUM K+ 2.5-3.5 Propofol 1,000 mg 01/23/19 20:33 01/24/19 05:36 Diprivan IV 02/22/19 20:33 1,000 mg INF PRN Administration TO ACHIEVE GOAL RASS Protocol Scopolamine 3 mg 01/27/19 09:30 01/27/19 13:00 Transderm Scop TD Not Given Q3D CHAYO Sodium Chloride 10 ml 01/23/19 21:00 01/27/19 08:49 Flush - Normal Saline IVF Not Given Q12HR CHAYO - Exam General Appearance: awake alert Eye: anicteric sclera ENT: moist mucosa Neck: supple Heart: RRR Respiratory: CTAB Gastrointestinal: soft, normal bowel sounds Extremities: no clubbing Skin: no rashes Psychiatric: normal affect Psychiatric - other findings: Unable to assess Hosp A/P (1) Acute respiratory failure with hypoxia and hypercapnia Code(s): J96.01 - ACUTE RESPIRATORY FAILURE WITH HYPOXIA; J96.02 - ACUTE RESPIRATORY FAILURE WITH HYPERCAPNIA Status: Acute (2) Severe sepsis Code(s): A41.9 - SEPSIS, UNSPECIFIED ORGANISM; R65.20 - SEVERE SEPSIS WITHOUT SEPTIC SHOCK Status: Acute Plan: severe sepsis with acute hypoxic and hypercapnic respiratory failure, present on admission (3) Aspiration pneumonia Code(s): J69.0 - PNEUMONITIS DUE TO INHALATION OF FOOD AND VOMIT Status: Acute Plan: present on admission (4) Anxiety and depression Code(s): F41.9 - ANXIETY DISORDER, UNSPECIFIED; F32.9 - MAJOR DEPRESSIVE DISORDER, SINGLE EPISODE, UNSPECIFIED Status: Chronic Plan: due to sepsis, present on admission (5) Acute metabolic encephalopathy Code(s): G93.41 - METABOLIC ENCEPHALOPATHY Status: Acute (6) Protein-calorie malnutrition, moderate Code(s): E44.0 - MODERATE PROTEIN-CALORIE MALNUTRITION Status: Chronic - Plan continue antibiotics Continue IV metronidazole and cefepime. Continue Keppra. Palliative care team discussing re: goals of care with family.
[2019-01-27] MEDS: fentaNYL 50 mcg/hour Patch TD SCH (21:56)
--- NOTE | 2019-01-27 23:17 | EKG ---
Test Reason : STAT Blood Pressure : / mmHG Vent. Rate : 139 BPM Atrial Rate : 105 BPM P-R Int : 000 ms QRS Dur : 082 ms QT Int : 322 ms P-R-T Axes : 000 -17 183 degrees QTc Int : 489 ms Atrial fibrillation with rapid ventricular response Possible Anterior infarct , age undetermined Abnormal ECG When compared with ECG of 17-APR-2018 11:21, Atrial fibrillation has replaced Sinus rhythm Vent. rate has increased BY 64 BPM Borderline criteria for Anterior infarct are now Present ST now depressed in Lateral leads Nonspecific T wave abnormality now evident in Lateral leads Confirmed by Swati BAIG ([id number]) on 01/27/2019 11:16:50 PM Referred By: QI Confirmed By:Swati BAIG
[2019-01-28] MEDS: metroNIDAZOLE 500 MG in Premix Bag 1 BAG IVPB SCH ×2 (00:04→06:48)
[2019-01-28] MEDS: methylPREDNISolone Sod Succ 40 MG VIAL IVP SCH ×5 (00:05→23:50)
[2019-01-28] MEDS: Lorazepam 2 MG/ML VIAL SLOW IVP PRN ×3 (00:16→09:00)
[2019-01-28] MEDS: diphenhydrAMINE 50 MG/ML VIAL IVP SCH ×2 (03:12→15:27)
[2019-01-28] MEDS: NS 0.9% w/ 20 MEQ KCL 1,000 ML/1,000 ML BAG IV SCH ×3 (05:18→19:39)
[2019-01-28 05:20] LABS: #Lymphocytes 0.5 thou/uL (1.20-3.40); #Monocytes 0.3 thou/uL (0.11-0.59); #Neutrophils 7.1 thou/uL (1.40-6.50); %Basophils 0.1 % (0.0-1.0); %Eosinophils 0.2 % (0.0-10.0); %Lymphocytes 6.7 % (21.0-51.0); %Neutrophils 89.1 % (42.0-75.0); Hemoglobin 12.9 g/dL (14.0-18.0); Mean Corpuscular HGB CONC 33.5 g/dL (32.0-36.0); Mean Corpuscular Hemoglobin 28.4 pg (27.0-31.0); Mean Corpuscular Volume 84.8 fL (78.0-98.0); Mean Platelet Volume 7.5 fL (7.4-10.4); Platelet Count 158 thou/uL (130-400); RBC Distribution Width 12.2 % (11.5-14.5); Red Blood Cell (RBC) Count 4.53 mill/uL (4.70-6.10)
[2019-01-28 05:44] LABS: Anion Gap 10 mmol/L (10-20); BUN (Urea Nitrogen) 8 mg/dL (8.9-20.6); Calc. Creatinine Clearance 121 mL/min (70-130); Calcium 8.5 mg/dL (7.8-10.44); Carbon Dioxide 29 mmol/L (22-29); Chloride 101 mmol/L (98-107); Estimated GFR-MDRD Greater than 90; Glucose 235 mg/dL (70-105); Potassium 3.8 mmol/L (3.5-5.1); Sodium 136 mmol/L (136-145)
[2019-01-28] MEDS: Cefepime 2 GM in Sodium Chloride 0.9% 100 ML IVPB SCH (07:52)
[2019-01-28] MEDS: Famotidine/PF 20 mg/2ml Vial SLOW IVP SCH ×2 (08:51→20:35)
[2019-01-28] MEDS: OXcarbazepine 150 MG TAB PER TUBE SCH (08:53)
[2019-01-28] MEDS: Amoxicillin/Potassium Clav 500 MG TAB PO SCH ×2 (09:13→20:34)
--- NOTE | 2019-01-28 09:21 | PRG ---
DATE OF SERVICE: 01/28/2019 SUBJECTIVE: Tani Shah this morning remains in the ICU, still encephalopathic. OBJECTIVE: VITAL SIGNS: Pulse 102, respiratory rate 22, saturations 96% on 2 L, blood pressure 125/81. CHEST: Bilateral rhonchi. CARDIAC: Sinus tach. ABDOMEN: Soft. LABORATORY DATA: His CBC and lytes are normal. ASSESSMENT: Aspiration pneumonia, encephalopathy. Pulmonary gray, he appears to be pretty close to his baseline. Need to discuss with his when she arrives. Meantime continue Maxipime and supportive care. We will follow. Job ID: [id number]
[2019-01-28] MEDS ORDERED: Enoxaparin Sodium 40 MG/0.4 ML SYRINGE SC SCH (12:15)
[2019-01-28] MEDS ORDERED: Bisacodyl 10 MG SUPP PR PRN (13:54)
[2019-01-28] MEDS ORDERED: Bisacodyl 10 MG SUPP PR SCH (14:00)
[2019-01-28] MEDS ORDERED: Ziprasidone 20 MG VIAL IM SCH (17:30)
[2019-01-28] MEDS ORDERED: Metoclopramide HCl 10 MG/2 ML VIAL IVP SCH (17:45)
--- NOTE | 2019-01-28 18:10 | PDOC.HOSPP ---
- Subjective Encounter Date: 01/28/19 Encounter Time: 10:20 Subjective: Pt seen for followup re; acute hypoxic respiratory failure. Nonverbal, could not complete ROS. - Objective Vital Signs & Weight: Vital Signs (12 hours) Temp Pulse Resp Pulse Ox 01/28/19 16:00 99.6 F 01/28/19 14:08 91 19 100 01/28/19 12:00 98.8 F 96 01/28/19 08:23 96 01/28/19 08:00 98.7 F 98 01/28/19 07:39 102 H 22 H 96 Weight Admit Weight 156 lb Weight 149 lb 0.52 oz Most Recent Monitor Data Heart Rate from ECG 99 NIBP 131/86 NIBP BP-Mean 101 Respiration from ECG 14 SpO2 96 I&O: 01/27/19 01/28/19 01/29/19 06:59 06:59 06:59 Intake Total 5242 4825 1840 Output Total 3800 4258 410 Balance 8698 628 2918 Result Diagrams: 01/28/19 04:55 01/28/19 04:55 Additional Labs: Labs and MARs reviewed by in Hospitalist ROS - Review of Systems ROS unobtainable: due to mental status - Medication Medications: Active Medications Generic Name Dose Route Start Last Admin Trade Name Freq PRN Reason Stop Dose Admin Acetaminophen 650 mg 01/23/19 16:26 01/25/19 18:21 Tylenol [place] 650 mg Q4H PRN Administration Headache/Fever/Mild Pain (1-3) Albuterol/Ipratropium 3 ml 01/23/19 19:00 01/28/19 14:08 Duoneb NEB 3 ml [id number] CHAYO Administration Amoxicillin/Clavulanate Potassium 500 mg 01/28/19 09:00 01/28/19 09:13 Augmentin PO 02/02/19 09:01 500 mg Q12HR CHAYO Administration Diltiazem HCl 30 mg 01/23/19 21:00 01/28/19 15:27 Cardizem PER TUBE 30 mg TID CHAYO Administration Diphenhydramine HCl 50 mg 01/26/19 03:30 01/28/19 15:27 Benadryl IVP Not Given 0330,1530 CHAYO Famotidine 20 mg 01/23/19 21:00 01/28/19 08:51 Pepcid SLOW IVP 20 mg Q12HR CHAYO Administration Fentanyl 50 mcg 01/24/19 21:00 01/27/19 21:56 Duragesic TD 50 mcg Q3D CHAYO Administration Fentanyl Citrate 2,000 mcg/ 100 mls @ 0 mls/hr 01/23/19 15:30 01/24/19 08:02 Sodium Chloride IV 02/22/19 15:30 100 mls INF CHAYO Administration Protocol Per Protocol Potassium Chloride 40 meq/ 270 mls @ 135 mls/hr 01/23/19 16:46 01/26/19 06:23 Sodium Chloride IVPB 270 mls ASDIR PRN Administration FOR SERUM K+ 2.5 - 3.5 Potassium Chloride/Sodium Chloride 1,000 ml in 1,000 mls @ 75 mls/hr 01/23/19 17:45 01/28/19 12:25 Ns 0.9% W/ 20 Meq Kcl IV Not Given .[id number] CHAYO Levetiracetam 500 mg/ Device 100 mls @ 200 mls/hr 01/25/19 09:00 01/28/19 08: 52 IVPB 100 mls BID CHAYO Administration Lorazepam 2 mg 01/23/19 20:33 01/27/19 05:18 Ativan SLOW IVP 02/22/19 20:33 2 mg Q1H PRN Administration Breakthrough agitation Lorazepam 1 mg 01/24/19 20:36 01/28/19 09:00 Ativan SLOW IVP 1 mg Q4H PRN Administration Anxiety/Agitation Methylprednisolone Sodium Succinate 40 mg 01/27/19 12:00 01/28/19 17:45 Solu-Medrol IVP 40 mg Q6HR CHAYO Administration Metoclopramide HCl 10 mg 01/28/19 17:45 01/28/19 17:45 Reglan IVP 01/28/19 19:45 10 mg NOW CHAYO Administration Oxcarbazepine 150 mg 01/24/19 09:00 01/28/19 08:53 Trileptal PER TUBE 150 mg DAILY CHAYO Administration Potassium Chloride 40 meq 01/23/19 16:46 01/27/19 04:05 Klor-Con PER TUBE 40 meq ASDIR PRN Administration FOR SERUM K+ 2.5-3.5 Propofol 1,000 mg 01/23/19 20:33 01/24/19 05:36 Diprivan IV 02/22/19 20:33 1,000 mg INF PRN Administration TO ACHIEVE GOAL RASS Protocol Scopolamine 3 mg 01/27/19 09:30 01/27/19 13:00 Transderm Scop TD Not Given Q3D CHAYO Sodium Chloride 10 ml 01/23/19 21:00 01/28/19 08:53 Flush - Normal Saline IVF 10 ml Q12HR CHAYO Administration Ziprasidone 10 mg 01/28/19 17:30 01/28/19 17:53 Geodon IM 01/28/19 19:30 10 mg NOW CHAYO Administration - Exam General Appearance: NAD Eye: anicteric sclera ENT: moist mucosa Neck: no JVD Heart: RRR, no murmur Respiratory: CTAB Gastrointestinal: soft, normal bowel sounds Neurological - other findings: L weakness Musculoskeletal: diffuse muscle atrophy Psychiatric - other findings: Could not assess Hosp A/P (1) Acute respiratory failure with hypoxia and hypercapnia Code(s): J96.01 - ACUTE RESPIRATORY FAILURE WITH HYPOXIA; J96.02 - ACUTE RESPIRATORY FAILURE WITH HYPERCAPNIA Status: Acute (2) Aspiration pneumonia Code(s): J69.0 - PNEUMONITIS DUE TO INHALATION OF FOOD AND VOMIT Status: Acute (3) Anxiety and depression Code(s): F41.9 - ANXIETY DISORDER, UNSPECIFIED; F32.9 - MAJOR DEPRESSIVE DISORDER, SINGLE EPISODE, UNSPECIFIED Status: Chronic (4) Acute metabolic encephalopathy Code(s): G93.41 - METABOLIC ENCEPHALOPATHY Status: Acute (5) Protein-calorie malnutrition, moderate Code(s): E44.0 - MODERATE PROTEIN-CALORIE MALNUTRITION Status: Chronic (6) Severe sepsis Code(s): A41.9 - SEPSIS, UNSPECIFIED ORGANISM; R65.20 - SEVERE SEPSIS WITHOUT SEPTIC SHOCK Status: Resolved - Plan continue antibiotics, PT/OT Continue IV Flagyl and cefepime. Continue Keppra for seizures.
[2019-01-29] MEDS: diphenhydrAMINE 50 MG/ML VIAL IVP SCH (03:53)
[2019-01-29] MEDS: Lorazepam 2 MG/ML VIAL SLOW IVP PRN ×4 (04:19→19:09)
[2019-01-29] MEDS: methylPREDNISolone Sod Succ 40 MG VIAL IVP SCH ×2 (05:49→11:17)
[2019-01-29] MEDS: Amoxicillin/Potassium Clav 500 MG TAB PO SCH (09:21)
[2019-01-29] MEDS: OXcarbazepine 150 MG TAB PER TUBE SCH (09:27)
[2019-01-29] MEDS: Famotidine/PF 20 mg/2ml Vial SLOW IVP SCH ×2 (09:27→22:27)
[2019-01-29] MEDS: Enoxaparin Sodium 40 MG/0.4 ML SYRINGE SC SCH (09:27)
[2019-01-29] MEDS: NS 0.9% w/ 20 MEQ KCL 1,000 ML/1,000 ML BAG IV SCH (09:27)
--- NOTE | 2019-01-29 13:09 | PRG ---
DATE OF SERVICE: 01/29/2019 SERVICE: Pulmonary Medicine. INTERVAL HISTORY: The patient is doing fine from respiratory standpoint. He is tolerating tube feeds. He has telemetry orders, but we are awaiting on a bed. Otherwise, there has been no interval change to his condition. PHYSICAL EXAMINATION: VITAL SIGNS: Afebrile, pulse 102, blood pressure 104/71, respirations 28, saturation 98%, currently on T-collar. HEENT: Normocephalic and atraumatic. Sclerae white. Conjunctivae pink. Oral mucosa is moist without lesions. LUNGS: Decent air entry. No prolonged expiratory phase or wheezing is appreciated. HEART: Normal rate, regular. ABDOMEN: Soft, nontender, and nondistended. Bowel sounds are positive. MUSCULOSKELETAL: No cyanosis or clubbing. No pitting in the bilateral lower extremities. : Horn catheter in place. LABORATORY DATA: WBC 8.0, hemoglobin 12.9, platelets of 158,000. Basic metabolic profile is completely unremarkable. Potassium 3.8. ASSESSMENT: 1. Community-acquired pneumonia secondary to overt aspiration. 2. Dysphagia. 3. Acute hypoxic respiratory failure, resolved to baseline. DISCUSSION AND PLAN: I will give him a laboratory holiday tomorrow morning, we will interrupt IV fluids. He is tolerating his tube feeds just fine. He is not close to swallowing at this point. As such, I will talk to his next of kin about replacing his PEG tube. That will be performed during this hospital stay if the family is interested in this. Pulmonary/Critical Care will continue to follow along for the time being. Job ID: [id number]
--- NOTE | 2019-01-29 13:31 | PDOC.HOSPP ---
- Subjective Encounter Date: 01/29/19 Encounter Time: 10:20 Subjective: Pt seen for followup re; acute hypoxic respiratory failure. Pt is nonverbal. - Objective Vital Signs & Weight: Vital Signs (12 hours) Temp Pulse Resp Pulse Ox 01/29/19 13:12 94 14 98 01/29/19 08:00 97.9 F 96 01/29/19 07:10 79 19 98 01/29/19 07:00 97.9 F 01/29/19 04:00 98.6 F Weight Admit Weight 156 lb Weight 148 lb 12.992 oz Most Recent Monitor Data Heart Rate from ECG 89 NIBP 132/71 NIBP BP-Mean 91 Respiration from ECG 12 SpO2 98 I&O: 01/28/19 01/29/19 01/30/19 06:59 06:59 06:59 Intake Total 4825 4441 380 Output Total 4258 925 235 Balance 567 3516 145 Result Diagrams: 01/28/19 04:55 01/28/19 04:55 Additional Labs: labs and MARs reviewed by me EKG Reviewed by me: Yes (Tele: NSR) Hospitalist ROS - Review of Systems ROS unobtainable: due to mental status - Medication Medications: Active Medications Generic Name Dose Route Start Last Admin Trade Name Freq PRN Reason Stop Dose Admin Acetaminophen 650 mg 01/23/19 16:26 01/25/19 18:21 Tylenol [place] 650 mg Q4H PRN Administration Headache/Fever/Mild Pain (1-3) Albuterol/Ipratropium 3 ml 01/23/19 19:00 01/29/19 13:12 Duoneb NEB 3 ml [id number] CHAYO Administration Amoxicillin/Clavulanate Potassium 500 mg 01/28/19 09:00 01/29/19 09:21 Augmentin PO 02/02/19 09:01 500 mg Q12HR CHAYO Administration Diltiazem HCl 30 mg 01/23/19 21:00 01/29/19 09:27 Cardizem PER TUBE 30 mg TID CHAYO Administration Enoxaparin Sodium 40 mg 01/29/19 09:00 01/29/19 09:27 Lovenox SC 40 mg 0900 CHAYO Administration Famotidine 20 mg 01/23/19 21:00 01/29/19 09:27 Pepcid SLOW IVP 20 mg Q12HR CHAYO Administration Fentanyl 50 mcg 01/24/19 21:00 01/27/19 21:56 Duragesic TD 50 mcg Q3D CHAYO Administration Potassium Chloride 40 meq/ 270 mls @ 135 mls/hr 01/23/19 16:46 01/26/19 06:23 Sodium Chloride IVPB 270 mls ASDIR PRN Administration FOR SERUM K+ 2.5 - 3.5 Levetiracetam 500 mg/ Device 100 mls @ 200 mls/hr 01/25/19 09:00 01/29/19 09: 21 IVPB 100 mls BID CHAYO Administration Oxcarbazepine 150 mg 01/24/19 09:00 01/29/19 09:27 Trileptal PER TUBE 150 mg DAILY CHAYO Administration Potassium Chloride 40 meq 01/23/19 16:46 01/27/19 04:05 Klor-Con PER TUBE 40 meq ASDIR PRN Administration FOR SERUM K+ 2.5-3.5 Scopolamine 3 mg 01/27/19 09:30 01/27/19 13:00 Transderm Scop TD Not Given Q3D CHAYO Sodium Chloride 10 ml 01/23/19 21:00 01/29/19 09:28 Flush - Normal Saline IVF 10 ml Q12HR CHAYO Administration - Exam General - other findings: malnourished Eye: anicteric sclera ENT: moist mucosa ENT - other findings: NG tube Neck: supple Heart: RRR Respiratory: CTAB Gastrointestinal: soft, normal bowel sounds Neurological - other findings: L weakness Musculoskeletal: diffuse muscle atrophy Psychiatric - other findings: Unable to assess Hosp A/P (1) Acute respiratory failure with hypoxia and hypercapnia Code(s): J96.01 - ACUTE RESPIRATORY FAILURE WITH HYPOXIA; J96.02 - ACUTE RESPIRATORY FAILURE WITH HYPERCAPNIA Status: Acute (2) Aspiration pneumonia Code(s): J69.0 - PNEUMONITIS DUE TO INHALATION OF FOOD AND VOMIT Status: Acute (3) Anxiety and depression Code(s): F41.9 - ANXIETY DISORDER, UNSPECIFIED; F32.9 - MAJOR DEPRESSIVE DISORDER, SINGLE EPISODE, UNSPECIFIED Status: Chronic (4) Acute metabolic encephalopathy Code(s): G93.41 - METABOLIC ENCEPHALOPATHY Status: Acute (5) Protein-calorie malnutrition, moderate Code(s): E44.0 - MODERATE PROTEIN-CALORIE MALNUTRITION Status: Chronic (6) Severe sepsis Code(s): A41.9 - SEPSIS, UNSPECIFIED ORGANISM; R65.20 - SEVERE SEPSIS WITHOUT SEPTIC SHOCK Status: Resolved - Plan continue antibiotics Pt has been switched to Augmentin. Continue Keppra for seizures. Pall care following. Need family discussion re; nutrition and goals of care.
[2019-01-30] MEDS: Amoxicillin/Potassium Clav 500 MG TAB PO SCH ×3 (01:29→21:27)
[2019-01-30] MEDS: Lorazepam 2 MG/ML VIAL SLOW IVP PRN ×3 (02:25→21:15)
--- NOTE | 2019-01-30 07:44 | RAD ---
Abdomen one view HISTORY: Nasogastric tube placement. COMPARISON: 06/06/2016. FINDINGS: Gaseous distention of the small and large bowel is less pronounced than on the prior study. Elevation left hemidiaphragm. Nasogastric tube is coiled over the medial aspect of the left upper quadrant. Based on position of the bowel gas, the tube is likely at the gastric cardia, with the prox imal port near the GE junction. Consider advancing the tube 5-10 cm for better positioning. Within the chest, there are postoperative changes and pulmonary vascular congestion.
[2019-01-30] MEDS: OXcarbazepine 150 MG TAB PER TUBE SCH (09:29)
[2019-01-30] MEDS: predniSONE 20 MG TAB PO SCH (09:32)
[2019-01-30] MEDS: Enoxaparin Sodium 40 MG/0.4 ML SYRINGE SC SCH (09:49)
[2019-01-30] MEDS: Famotidine/PF 20 mg/2ml Vial SLOW IVP SCH ×2 (09:49→21:27)
[2019-01-30] MEDS: Scopolamine 1.5 mg/72 hour Patch TD SCH (09:49)
--- NOTE | 2019-01-30 18:00 | PDOC.HOSPP ---
- Subjective Encounter Date: 01/30/19 Encounter Time: 08:20 Subjective: Pt seen for followup re: acute hypoxic respiratory failure. Pt is nonverbal, could not complete ROS. - Objective Vital Signs & Weight: Vital Signs (12 hours) Temp Pulse Resp BP Pulse Ox 01/30/19 16:00 98.3 F 88 14 123/62 95 01/30/19 13:37 84 20 84 L 01/30/19 11:35 98.2 F 95 14 115/71 94 L 01/30/19 08:00 98.1 F 94 12 131/76 94 L 01/30/19 07:34 95 18 95 Weight Admit Weight 156 lb Weight 148 lb 12.992 oz Most Recent Monitor Data Heart Rate from ECG 84 NIBP 138/86 NIBP BP-Mean 103 Respiration from ECG 16 SpO2 98 I&O: 01/29/19 01/30/19 01/31/19 06:59 06:59 06:59 Intake Total 4441 1490 540 Output Total 925 935 Balance 3516 482 540 Result Diagrams: 01/28/19 04:55 01/28/19 04:55 Additional Labs: Labs and MARs reviewed by ut Hospitalist ROS - Review of Systems ROS unobtainable: due to mental status - Medication Medications: Active Medications Generic Name Dose Route Start Last Admin Trade Name Freq PRN Reason Stop Dose Admin Acetaminophen 650 mg 01/23/19 16:26 01/25/19 18:21 Tylenol [place] 650 mg Q4H PRN Administration Headache/Fever/Mild Pain (1-3) Albuterol/Ipratropium 3 ml 01/23/19 19:00 01/30/19 13:37 Duoneb NEB 3 ml [id number] CHAYO Administration Amoxicillin/Clavulanate Potassium 500 mg 01/28/19 09:00 01/30/19 09:30 Augmentin PO 02/02/19 09:01 500 mg Q12HR CHAYO Administration Diltiazem HCl 30 mg 01/23/19 21:00 01/30/19 15:51 Cardizem PER TUBE 30 mg TID CHAYO Administration Enoxaparin Sodium 40 mg 01/29/19 09:00 01/30/19 09:49 Lovenox SC 40 mg 0900 CHAYO Administration Famotidine 20 mg 01/23/19 21:00 01/30/19 09:49 Pepcid SLOW IVP 20 mg Q12HR CHAYO Administration Fentanyl 50 mcg 01/24/19 21:00 01/27/19 21:56 Duragesic TD 50 mcg Q3D CHAYO Administration Potassium Chloride 40 meq/ 270 mls @ 135 mls/hr 01/23/19 16:46 01/26/19 06:23 Sodium Chloride IVPB 270 mls ASDIR PRN Administration FOR SERUM K+ 2.5 - 3.5 Levetiracetam 500 mg/ Device 100 mls @ 200 mls/hr 01/25/19 09:00 01/30/19 09: 54 IVPB 100 mls BID CHAYO Administration Lorazepam 2 mg 01/29/19 12:24 01/29/19 19:09 Ativan SLOW IVP 2 mg Q30MIN PRN Administration Seizures Lorazepam 1 mg 01/29/19 20:09 01/30/19 11:45 Ativan SLOW IVP 1 mg Q6H PRN Administration Anxiety/Agitation Oxcarbazepine 150 mg 01/24/19 09:00 01/30/19 09:29 Trileptal PER TUBE 150 mg DAILY CHAYO Administration Potassium Chloride 40 meq 01/23/19 16:46 01/27/19 04:05 Klor-Con PER TUBE 40 meq ASDIR PRN Administration FOR SERUM K+ 2.5-3.5 Prednisone 40 mg 01/30/19 08:00 01/30/19 09:32 Prednisone PO 40 mg QAM-WM CHAYO Administration Scopolamine 3 mg 01/27/19 09:30 01/30/19 09:49 Transderm Scop TD 3 mg Q3D CHAYO Administration Sodium Chloride 10 ml 01/23/19 21:00 01/30/19 09:56 Flush - Normal Saline IVF 10 ml Q12HR CHAYO Administration - Exam General - other findings: malnourished Eye: anicteric sclera ENT: moist mucosa Neck: supple Heart: no rubs Heart - other findings: S1, S2, tachy, reg Gastrointestinal: soft, non-tender Neurological - other findings: L weakness Psychiatric - other findings: Unable to assess Hosp A/P (1) Acute respiratory failure with hypoxia and hypercapnia Code(s): J96.01 - ACUTE RESPIRATORY FAILURE WITH HYPOXIA; J96.02 - ACUTE RESPIRATORY FAILURE WITH HYPERCAPNIA Status: Acute (2) Aspiration pneumonia Code(s): J69.0 - PNEUMONITIS DUE TO INHALATION OF FOOD AND VOMIT Status: Acute (3) Anxiety and depression Code(s): F41.9 - ANXIETY DISORDER, UNSPECIFIED; F32.9 - MAJOR DEPRESSIVE DISORDER, SINGLE EPISODE, UNSPECIFIED Status: Chronic (4) Acute metabolic encephalopathy Code(s): G93.41 - METABOLIC ENCEPHALOPATHY Status: Acute (5) Protein-calorie malnutrition, moderate Code(s): E44.0 - MODERATE PROTEIN-CALORIE MALNUTRITION Status: Chronic (6) Severe sepsis Code(s): A41.9 - SEPSIS, UNSPECIFIED ORGANISM; R65.20 - SEVERE SEPSIS WITHOUT SEPTIC SHOCK Status: Resolved - Plan continue antibiotics, PT/OT Continue Augmentin. Continue Keppra. Pall care following. Family likely to come in tomorrow, need discussions re: feeding.
--- NOTE | 2019-01-30 18:46 | PRG ---
DATE OF SERVICE: 01/30/2019 SERVICE: Pulmonary Medicine. INTERVAL HISTORY: The patient is a little bit frustrated that he has mittens on and restraints. That being said, he has pulled out his NG tube on a couple of occasions. He understands that he is not able to swallow safely. That being said, he still wants food. 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 There were no significant overnight events or fevers noted. PHYSICAL EXAMINATION: VITAL SIGNS: Afebrile, pulse 88, blood pressure 123/62, respirations 14, saturation 95% on 2 L nasal cannula. GENERAL: The patient is awake and alert, in no apparent distress. LUNGS: Good air entry. There is some rhonchi present. No prolonged expiratory phase or wheezing is appreciated. HEART: Normal rate. Regular. ABDOMEN: Soft. Nontender and nondistended. Bowel sounds are present. MUSCULOSKELETAL: No cyanosis or clubbing. There is no pitting in the bilateral lower extremities. IMAGING: KUB demonstrates good placement for a small-bore weighted feeding catheter. There is elevation of the left hemidiaphragm. No consolidating changes are otherwise appreciated. ASSESSMENT: 1. Community-acquired pneumonia secondary to overt aspiration. 2. Oropharyngeal dysphagia. 3. Acute hypoxic respiratory failure, resolving. DISCUSSION AND PLAN: Definitive feeding will need to be established. From my perspective, he is not safe to swallow and will likely require a repeat PEG tube. That being said, this patient has pulled out greater than 5 PEG tubes in his history. Once we can establish a safe way of providing enteral nutrition, he will be a good candidate for transition out of the hospital. Pulmonary will continue to follow while the patient remains inhouse. Dr. Ashford will resume care in the morning. Job ID: [id number]
[2019-01-30] MEDS: fentaNYL 50 mcg/hour Patch TD SCH (21:23)
[2019-01-31 08:12] LABS: #Eosinphils 0.3 thou/uL (0.0-0.7); #Monocytes 0.8 thou/uL (0.11-0.59); %Basophils 0.2 % (0.0-1.0); %Eosinophils 4.1 % (0.0-10.0); %Lymphocytes 24.1 % (21.0-51.0); %Monocytes 10.1 % (0.0-10.0); %Neutrophils 61.5 % (42.0-75.0); Hemoglobin 11.5 g/dL (14.0-18.0); Mean Corpuscular Hemoglobin 28.6 pg (27.0-31.0); Mean Corpuscular Volume 86.7 fL (78.0-98.0); Mean Platelet Volume 6.7 fL (7.4-10.4); Platelet Count 176 thou/uL (130-400); Red Blood Cell (RBC) Count 4.03 mill/uL (4.70-6.10); White Blood Cell (WBC) Count 8.2 thou/uL (4.8-10.8)
[2019-01-31 08:40] LABS: ALT (SGPT) 39 U/L (8-55); AST (SGOT) 24 U/L (5-34); Albumin 3.2 g/dL (3.5-5.0); Alkaline Phosphatase 69 U/L (40-110); Anion Gap 9 mmol/L (10-20); BUN (Urea Nitrogen) 18 mg/dL (8.9-20.6); Bilirubin, Total 0.2 mg/dL (0.2-1.2); Calc. Creatinine Clearance 143 mL/min (70-130); Calcium 8.2 mg/dL (7.8-10.44); Carbon Dioxide 29 mmol/L (22-29); Chloride 106 mmol/L (98-107); Estimated GFR-MDRD Greater than 90; Globulin 2.3 g/dL (2.4-3.5); Glucose 106 mg/dL (70-105); Magnesium 2.2 mg/dL (1.6-2.6); Potassium 3.7 mmol/L (3.5-5.1); Protein, Total 5.5 g/dL (6.0-8.3); Sodium 140 mmol/L (136-145)
[2019-01-31] MEDS: Enoxaparin Sodium 40 MG/0.4 ML SYRINGE SC SCH (09:16)
[2019-01-31] MEDS: Famotidine/PF 20 mg/2ml Vial SLOW IVP SCH (09:17)
--- NOTE | 2019-01-31 09:58 | PRG ---
DATE OF SERVICE: 01/31/2019 SUBJECTIVE: Tani Shah remains encephalopathic, but pulled his NG tube out. OBJECTIVE: VITAL SIGNS: Saturations are 97% on 2 L, respirations 16, temperature 99, and blood pressure 142/91. CHEST: Decreased breath sounds without any wheezing. CARDIAC: Normal S1 and S2. No gallops. ABDOMEN: No mass. ASSESSMENT AND PLAN: 1. Encephalopathy. 2. Traumatic brain injury. 3. Aspiration pneumonia. 4. Respiratory failure. 5. Sinus tachycardia. Concerned about the patient pulling his NG tube out frequently. Need to restart his home medication to see whether we can control his agitation. Pulmonary will follow. Job ID: [id number]
--- NOTE | 2019-01-31 11:20 | RAD ---
Abdomen one view: 01/31/2019 COMPARISON: 01/30/2019 HISTORY: Evaluate nasogastric tube FINDINGS: A radiograph of the chest and upper abdomen is provided. Nasogastric tube is in a stable position, near the gastroesophageal junction, likely within the regio n of the gastric fundus. Stable clips are noted in the left suprahilar region. There is persistent dense opacity within the lingula and left lower lobe, evidence of nonspecific consolidation/collapse, likely on the basis of aspiration. Nonspecific increased linear density noted within the medial aspect of the right lung. IMPRESSION: Stable frontal radiograph of the abdomen/chest.
[2019-01-31] MEDS ORDERED: Pantoprazole 40 MG VIAL IVP SCH (11:30)
[2019-01-31] MEDS: Amoxicillin/Potassium Clav 500 MG TAB PO SCH ×3 (13:08→23:09)
[2019-01-31] MEDS: predniSONE 20 MG TAB PO SCH (13:08)
[2019-01-31] MEDS: OXcarbazepine 150 MG TAB PER TUBE SCH (13:08)
[2019-01-31] MEDS: Lorazepam 2 MG/ML VIAL SLOW IVP PRN (18:02)
--- NOTE | 2019-01-31 20:41 | RAD ---
FRONTAL RADIOGRAPH CHEST: Date: 01-31-19 Comparison: 01-26-19 History: Seizure. Aspiration. FINDINGS: Gastric tube overlying the epigastric region, slightly retracted when compared to the prior exam. The re is mild nonspecific increased linear interstitial density in the right lung, stable. There is elev ation of the left hemidiaphragm with dense opacity in the left lung base which may signify volume los s or infectious pneumonitis/aspiration. Aeration in the left base has slightly worsened since the sary or exam. Stable chondroid lesion noted within the proximal right humerus. IMPRESSION: 1. Mild interval worsening of left basilar aeration as above. POS: JAMARI
[2019-01-31] MEDS ORDERED: levETIRAcetam 500 mg/5 ml Oral Solution PO SCH (21:00)
[2019-01-31] MEDS: Pantoprazole 40 MG VIAL IVP SCH (21:48)
--- NOTE | 2019-01-31 22:39 | PDOC.HOSPP ---
- Subjective Encounter Date: 01/31/19 Encounter Time: 08:45 Subjective: Patient seen and examined for Resp failure. Pulled NG tube. No overnight events - Objective Vital Signs & Weight: Vital Signs (12 hours) Temp Pulse Resp BP Pulse Ox 01/31/19 19:18 99.3 F 101 H 20 120/65 90 L 01/31/19 14:58 94 14 95 01/31/19 12:00 98.1 F 95 16 157/82 H 94 L 01/31/19 11:31 93 L 01/31/19 11:10 98.5 F 95 18 157/82 H 96 Weight Admit Weight 156 lb Weight 151 lb 6.4 oz Most Recent Monitor Data Heart Rate from ECG 84 NIBP 138/86 NIBP BP-Mean 103 Respiration from ECG 16 SpO2 98 I&O: 01/30/19 01/31/19 02/01/19 06:59 06:59 06:59 Intake Total 1490 1660 550 Output Total 935 650 750 Balance 555 1010 -200 Result Diagrams: 01/31/19 08:02 01/31/19 08:02 EKG Reviewed by me: Yes (Tele SR) Hospitalist ROS - Review of Systems ROS unobtainable: due to mental status - Medication Medications: Active Medications Generic Name Dose Route Start Last Admin Trade Name Freq PRN Reason Stop Dose Admin Acetaminophen 650 mg 01/23/19 16:26 01/25/19 18:21 Tylenol [place] 650 mg Q4H PRN Administration Headache/Fever/Mild Pain (1-3) Albuterol/Ipratropium 3 ml 01/23/19 19:00 01/31/19 19:03 Duoneb NEB Not Given [id number] CHAYO Amoxicillin/Clavulanate Potassium 500 mg 01/28/19 09:00 01/31/19 13:08 Augmentin PO 02/02/19 09:01 500 mg Q12HR CHAYO Administration Diltiazem HCl 30 mg 01/23/19 21:00 01/31/19 16:26 Cardizem PER TUBE 30 mg TID CHAYO Administration Enoxaparin Sodium 40 mg 01/29/19 09:00 01/31/19 09:16 Lovenox SC 40 mg 0900 CHAYO Administration Fentanyl 50 mcg 01/24/19 21:00 01/30/19 21:23 Duragesic TD 50 mcg Q3D CHAYO Administration Levetiracetam 500 mg/ Device 100 mls @ 200 mls/hr 01/31/19 21:00 01/31/19 21: 48 IVPB 100 mls BID CHAYO Administration Lorazepam 2 mg 01/29/19 12:24 01/31/19 18:02 Ativan SLOW IVP 2 mg Q30MIN PRN Administration Seizures Lorazepam 1 mg 01/29/19 20:09 01/30/19 21:15 Ativan SLOW IVP 1 mg Q6H PRN Administration Anxiety/Agitation Oxcarbazepine 150 mg 01/24/19 09:00 01/31/19 13:08 Trileptal PER TUBE 150 mg DAILY CHAYO Administration Pantoprazole Sodium 40 mg 01/31/19 21:00 01/31/19 21:48 Protonix IVP 40 mg Q12HR CHAYO Administration Prednisone 40 mg 01/30/19 08:00 01/31/19 13:08 Prednisone PO 40 mg QAM-WM CHAYO Administration Scopolamine 3 mg 01/27/19 09:30 01/30/19 09:49 Transderm Scop TD 3 mg Q3D CHAYO Administration Sodium Chloride 10 ml 01/23/19 21:00 01/31/19 21:49 Flush - Normal Saline IVF 10 ml Q12HR CHAYO Administration Sodium Chloride 10 ml 01/23/19 20:58 01/31/19 12:50 Flush - Normal Saline IVF 10 ml PRN PRN Administration Saline Flush Venlafaxine HCl 75 mg 01/31/19 15:00 01/31/19 16:26 Effexor PO 75 mg TID CHAYO Administration - Exam General Appearance: NAD Heart: RRR, no gallops Respiratory: rales, rhonchi, wheezes Gastrointestinal: soft, normal bowel sounds Hosp A/P - Plan DVT proph w/SCDs Acute hypoxic/hypercapnic resp failure Severe SepsisAspiration Pneumonia Swallow dys Hyponatremia Hypokalemia Moderate PEM Anemia PLAN: Cont current Atbx Cont NG tube 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
--- NOTE | 2019-02-01 09:25 | PRG ---
DATE OF SERVICE: 02/01/2019 SUBJECTIVE: Tani Shah remains encephalopathic. He had his NG tube removed yesterday, and a chest x-ray taken shows a left lingular infiltrate, elevated left hemidiaphragm with bowel in his chest. OBJECTIVE: VITAL SIGNS: His respiratory rate is 16, saturations are on 2 L, temperature 98, blood pressure 136/86. CHEST: Decreased breath sounds. No wheezing. CARDIAC: Normal S1 and S2. No gallops. ABDOMEN: No masses. IMPRESSION: 1. Encephalopathy. 2. Seizure disorders, secretions. PLAN: Reinstitute home medication. Continue PT, supportive care. Start nutrition. Hopefully, he want to pull his NG tube out. Family is still to arrive to make a long-term decision. Job ID: [id number]
[2019-02-01] MEDS: Pantoprazole 40 MG VIAL IVP SCH ×2 (10:40→21:21)
[2019-02-01] MEDS: Baclofen 10 MG TAB PO SCH ×3 (10:41→23:58)
[2019-02-01] MEDS: Amoxicillin/Potassium Clav 500 MG TAB PO SCH ×2 (10:41→23:58)
[2019-02-01] MEDS: OXcarbazepine 150 MG TAB PER TUBE SCH (10:42)
--- NOTE | 2019-02-01 11:54 | PDOC.HOSPP ---
- Subjective Encounter Date: 02/01/19 Encounter Time: 10:00 Subjective: Patient seen and examined. No overnight events, pt is pulling out tubes - Objective Vital Signs & Weight: Vital Signs (12 hours) Temp Pulse Resp BP Pulse Ox 02/01/19 07:34 73 16 96 02/01/19 07:30 98.9 F 66 20 136/86 96 02/01/19 03:21 97.7 F 85 20 128/77 97 02/01/19 01:13 91 L 02/01/19 00:48 94 16 91 L 01/31/19 23:55 98.0 F Weight Admit Weight 156 lb Weight 145 lb Most Recent Monitor Data Heart Rate from ECG 84 NIBP 138/86 NIBP BP-Mean 103 Respiration from ECG 16 SpO2 98 I&O: 01/31/19 02/01/19 02/02/19 06:59 06:59 06:59 Intake Total 1660 650 Output Total 650 1400 Balance 1010 -750 Result Diagrams: 01/31/19 08:02 01/31/19 08:02 EKG Reviewed by me: Yes Hospitalist ROS - Review of Systems ROS unobtainable: due to mental status - Medication Medications: Active Medications Generic Name Dose Route Start Last Admin Trade Name Freq PRN Reason Stop Dose Admin Acetaminophen 650 mg 01/23/19 16:26 01/25/19 18:21 Tylenol [place] 650 mg Q4H PRN Administration Headache/Fever/Mild Pain (1-3) Albuterol/Ipratropium 3 ml 01/23/19 19:00 02/01/19 07:34 Duoneb NEB 3 ml [id number] CHAYO Administration Amoxicillin/Clavulanate Potassium 500 mg 01/28/19 09:00 02/01/19 10:41 Augmentin PO 02/02/19 09:01 Not Given Q12HR CHAYO Baclofen 20 mg 02/01/19 09:00 02/01/19 10:41 Lioresal PO Not Given TID CHAYO Diltiazem HCl 30 mg 01/23/19 21:00 02/01/19 10:41 Cardizem PER TUBE Not Given TID CHAYO Enoxaparin Sodium 40 mg 01/29/19 09:00 01/31/19 09:16 Lovenox SC 40 mg 0900 CHAYO Administration Levetiracetam 500 mg/ Device 100 mls @ 200 mls/hr 01/31/19 21:00 02/01/19 10: 56 IVPB 100 mls BID CHAYO Administration Levetiracetam 500 mg/ Device 100 mls @ 200 mls/hr 02/01/19 11:00 02/01/19 11: 47 IVPB 02/01/19 13:00 Not Given NOW [facility] Lorazepam 1 mg 01/29/19 20:09 01/30/19 21:15 Ativan SLOW IVP 1 mg Q6H PRN Administration Anxiety/Agitation Oxcarbazepine 150 mg 01/24/19 09:00 02/01/19 10:42 Trileptal PER TUBE Not Given DAILY [facility] Pantoprazole Sodium 40 mg 01/31/19 21:00 02/01/19 10:40 Protonix IVP 40 mg Q12HR CHAYO Administration Scopolamine 3 mg 01/27/19 09:30 01/30/19 09:49 Transderm Scop TD 3 mg Q3D CHAYO Administration Sodium Chloride 10 ml 01/23/19 21:00 02/01/19 10:57 Flush - Normal Saline IVF 10 ml Q12HR CHAYO Administration Sodium Chloride 10 ml 01/23/19 20:58 01/31/19 12:50 Flush - Normal Saline IVF 10 ml PRN PRN Administration Saline Flush Venlafaxine HCl 75 mg 01/31/19 15:00 02/01/19 10:42 Effexor PO Not Given TID CHAYO - Exam General Appearance: NAD, ill appearing Eye: PERRL, anicteric sclera ENT: normocephalic atraumatic, no oropharyngeal lesions Neck: supple, symmetric, no JVD Heart: RRR, no murmur, no gallops Respiratory: CTAB, no wheezes, no rales Gastrointestinal: soft, non-tender, non-distended Extremities: no cyanosis, no edema Skin: normal turgor, no lesions Psychiatric: normal affect Hosp A/P (1) Aspiration pneumonia Code(s): J69.0 - PNEUMONITIS DUE TO INHALATION OF FOOD AND VOMIT Status: Acute (2) Anxiety and depression Code(s): F41.9 - ANXIETY DISORDER, UNSPECIFIED; F32.9 - MAJOR DEPRESSIVE DISORDER, SINGLE EPISODE, UNSPECIFIED Status: Chronic (3) Bipolar disorder Code(s): F31.9 - BIPOLAR DISORDER, UNSPECIFIED Status: Chronic Qualifiers: Active/Remission status: remission status unspecified Qualified Code(s): F31.9 - Bipolar disorder, unspecified (4) Oropharyngeal dysphagia Code(s): R13.12 - DYSPHAGIA, OROPHARYNGEAL PHASE Status: Chronic (5) Protein-calorie malnutrition, moderate Code(s): E44.0 - MODERATE PROTEIN-CALORIE MALNUTRITION Status: Chronic (6) TBI (traumatic brain injury) Code(s): S06.9X9A - UNSP INTRACRANIAL INJURY W LOC OF UNSP DURATION, INIT Status: Chronic Qualifiers: Encounter type: sequela - Plan old records reviewed/req, continue antibiotics continue augmentin continue keppra family need to decide if another peg tube will be placed as he is pulling out everything medication reviewed as above symptomatic treatment will give one dose of cardizem and if RVR, will start drip supportive care currently pt is unable to get his PO meds as he pulled out tube
[2019-02-01] MEDS: Lorazepam 2 MG/ML VIAL SLOW IVP PRN (21:21)
[2019-02-01] MEDS: clonazePAM 1 MG TAB PO SCH (23:58)
[2019-02-01] MEDS: predniSONE 20 MG TAB PO SCH (23:59)
[2019-02-02] MEDS: Haloperidol Lactate 5 MG/ML VIAL IM PRN ×2 (09:39→15:48)
[2019-02-02] MEDS: Pantoprazole 40 MG VIAL IVP SCH ×2 (09:40→19:57)
--- NOTE | 2019-02-02 09:43 | PRG ---
DATE OF SERVICE: 02/02/2019 SUBJECTIVE: This morning, he is much more awake and less agitated. OBJECTIVE: VITAL SIGNS: Saturations are 93% on room air, respirations 15, temperature 97, pulse 100, blood pressure 170/74. CHEST: No wheezing. CARDIAC: Normal S1 and S2. No gallops. ABDOMEN: No mass. ASSESSMENT: 1. Aspiration. 2. Left lung atelectasis. 3. Encephalopathy. 4. Dysphagia. PLAN: He appears to have improved. Continue home medication. Hopefully, once he starts eating, he can be discharged home. Follow up with his primary care physician. Job ID: [id number]
[2019-02-02] MEDS: predniSONE 20 MG TAB PO SCH (10:04)
[2019-02-02] MEDS: clonazePAM 1 MG TAB PO SCH (10:05)
[2019-02-02] MEDS: Baclofen 10 MG TAB PO SCH ×2 (10:05→15:55)
[2019-02-02] MEDS: Amoxicillin/Potassium Clav 500 MG TAB PO SCH (10:05)
[2019-02-02] MEDS: OXcarbazepine 150 MG TAB PER TUBE SCH (10:05)
[2019-02-02] MEDS: risperiDONE 1 MG TAB PO SCH (10:06)
[2019-02-02] MEDS: Scopolamine 1.5 mg/72 hour Patch TD SCH (10:37)
--- NOTE | 2019-02-02 10:43 | PDOC.HOSPP ---
- Subjective Subjective: Seen and examined. Agitated this AM and self removed his peterson with balloon, resulting in bleeding and hematuria - Will have patient seen by urology. Not taking oral medications consistently because of mood. Discussed case with speech therapy who states that MBS could help with diet recommendations, will proceed. - Objective Vital Signs & Weight: Vital Signs (12 hours) Temp Pulse Resp BP Pulse Ox 02/02/19 07:49 97.2 F L 127 H 15 117/74 93 L 02/02/19 07:27 71 18 93 L 02/02/19 04:00 98.4 F 80 18 112/76 94 L 02/02/19 00:46 112 H 12 02/01/19 23:27 133 H 18 132/71 Weight Admit Weight 156 lb Weight 136 lb Most Recent Monitor Data Heart Rate from ECG 84 NIBP 138/86 NIBP BP-Mean 103 Respiration from ECG 16 SpO2 98 I&O: 02/01/19 02/02/19 02/03/19 06:59 06:59 06:59 Intake Total 650 150 Output Total 1400 450 Balance -750 -300 Result Diagrams: 01/31/19 08:02 01/31/19 08:02 Radiology Reviewed by me: Yes (CXR) Hospitalist ROS - Review of Systems All other systems reviewed; all pertinent +/- noted in HPI/Subj - Medication Medications: Active Medications Generic Name Dose Route Start Last Admin Trade Name Freq PRN Reason Stop Dose Admin Acetaminophen 650 mg 01/23/19 16:26 01/25/19 18:21 Tylenol [place] 650 mg Q4H PRN Administration Headache/Fever/Mild Pain (1-3) Albuterol/Ipratropium 3 ml 01/23/19 19:00 02/02/19 07:27 Duoneb NEB 3 ml [id number] CHAYO Administration Baclofen 20 mg 02/01/19 09:00 02/02/19 10:05 Lioresal PO Not Given TID CHAYO Clonazepam 1 mg 02/01/19 21:00 02/02/19 10:05 Klonopin PO Not Given BID CHAYO Diltiazem HCl 30 mg 01/23/19 21:00 02/02/19 10:06 Cardizem PER TUBE Not Given TID CHAYO Enoxaparin Sodium 40 mg 01/29/19 09:00 01/31/19 09:16 Lovenox SC 40 mg 0900 CHAYO Administration Haloperidol Lactate 5 mg 02/02/19 07:46 02/02/19 09:39 Haldol IM 5 mg Q4H PRN Administration Agitation Levetiracetam 500 mg/ Device 100 mls @ 200 mls/hr 01/31/19 21:00 02/02/19 09: 39 IVPB 100 mls BID CHAYO Administration Lorazepam 1 mg 01/29/19 20:09 02/01/19 21:21 Ativan SLOW IVP 1 mg Q6H PRN Administration Anxiety/Agitation Oxcarbazepine 150 mg 01/24/19 09:00 02/02/19 10:05 Trileptal PER TUBE Not Given DAILY CHAYO Pantoprazole Sodium 40 mg 01/31/19 21:00 02/02/19 09:40 Protonix IVP 40 mg Q12HR CHAYO Administration Prednisone 20 mg 02/01/19 08:03 02/02/19 10:04 Prednisone PO Not Given QAM-WM CHAYO Risperidone 1 mg 02/02/19 09:00 02/02/19 10:06 Risperidone PO Not Given BID CHAYO Scopolamine 3 mg 01/27/19 09:30 01/30/19 09:49 Transderm Scop TD 3 mg Q3D CHAYO Administration Sodium Chloride 10 ml 01/23/19 21:00 02/02/19 09:41 Flush - Normal Saline IVF 10 ml Q12HR CHAYO Administration Sodium Chloride 10 ml 01/23/19 20:58 02/01/19 12:10 Flush - Normal Saline IVF 10 ml PRN PRN Administration Saline Flush Venlafaxine HCl 75 mg 01/31/19 15:00 02/02/19 10:06 Effexor PO Not Given TID CHAYO - Exam General Appearance: ill appearing Eye: PERRL ENT: normocephalic atraumatic, moist mucosa Neck: supple, symmetric, no lymphadenopathy Heart: no murmur, no gallops, no rubs Respiratory: CTAB, no wheezes, no rales, no ronchi Gastrointestinal: soft, non-tender, non-distended, no guarding, no rigidity Extremities: no edema Skin: no lesions, no rashes Neurological: cranial nerve grossly intact, normal sensation to touch, no new deficit Neurological - other findings: Follows simple commands on right. Left UE hemiparesis. Musculoskeletal: generalized weakness Hosp A/P (1) Acute metabolic encephalopathy Code(s): G93.41 - METABOLIC ENCEPHALOPATHY Status: Acute (2) Acute respiratory failure with hypoxia and hypercapnia Code(s): J96.01 - ACUTE RESPIRATORY FAILURE WITH HYPOXIA; J96.02 - ACUTE RESPIRATORY FAILURE WITH HYPERCAPNIA Status: Acute (3) Aspiration into airway Code(s): T17.908A - UNSP FB IN RESP TRACT, PART UNSP CAUSING OTH INJURY, INIT Status: Acute (4) Aspiration pneumonia Code(s): J69.0 - PNEUMONITIS DUE TO INHALATION OF FOOD AND VOMIT Status: Acute (5) Palliative care encounter Code(s): Z51.5 - ENCOUNTER FOR PALLIATIVE CARE Status: Acute (6) Severe sepsis Code(s): A41.9 - SEPSIS, UNSPECIFIED ORGANISM; R65.20 - SEVERE SEPSIS WITHOUT SEPTIC SHOCK Status: Resolved (7) Afib Code(s): I48.91 - UNSPECIFIED ATRIAL FIBRILLATION Status: Acute (8) Atelectasis Status: Acute (9) Bacteremia due to Staphylococcus Code(s): R78.81 - BACTEREMIA Status: Acute (10) Sepsis Code(s): A41.9 - SEPSIS, UNSPECIFIED ORGANISM Status: Acute Qualifiers: Sepsis type: sepsis due to unspecified organism Qualified Code(s): A41.9 - Sepsis, unspecified organism (11) UTI (urinary tract infection) Status: Acute Qualifiers: Urinary tract infection type: acute cystitis Hematuria presence: without hematuria Qualified Code(s): N30.00 - Acute cystitis without hematuria (12) Anxiety and depression Code(s): F41.9 - ANXIETY DISORDER, UNSPECIFIED; F32.9 - MAJOR DEPRESSIVE DISORDER, SINGLE EPISODE, UNSPECIFIED Status: Chronic (13) Bipolar disorder Code(s): F31.9 - BIPOLAR DISORDER, UNSPECIFIED Status: Chronic Qualifiers: Active/Remission status: remission status unspecified Qualified Code(s): F31.9 - Bipolar disorder, unspecified (14) Oropharyngeal dysphagia Code(s): R13.12 - DYSPHAGIA, OROPHARYNGEAL PHASE Status: Chronic (15) Protein-calorie malnutrition, moderate Code(s): E44.0 - MODERATE PROTEIN-CALORIE MALNUTRITION Status: Chronic (16) TBI (traumatic brain injury) Code(s): S06.9X9A - UNSP INTRACRANIAL INJURY W LOC OF UNSP DURATION, INIT Status: Chronic Qualifiers: Encounter type: sequela - Plan Plan: Med/ tel Urology consult, recommendations appreciated Pulm/ CC consult, recommendations appreciated Palliative care consult, recommendations appreciated Speech therapy consult, recommendations appreciated May need peterson replaced per urology Hematuria resolved MBS per speech therapy Continue ABX per Pulm for aspiration PNA Aspiration PNA from medical non compliance with diet restrictions when out of the hospital Continue anti epileptic drug Mood stabilizers PRN medications to keep calm, removing feeding tube and now peterson cath Restraints PRN for patient safety 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
--- NOTE | 2019-02-02 15:07 | RAD ---
MODIFIED BARIUM SWALLOW IN THE PRESENCE OF A SPEECH THERAPIST: Date: 02/02/19 HISTORY: Dysphagia, unspecified. Pneumonitis due to inhalation of food and vomit, feeding difficulties. FINDINGS/IMPRESSION: There is laryngeal penetration and aspiration. There is mild pooling of contrast in the vallecula and piriform sinuses. Please see recommendations of the speech therapist for further management. POS: ELIZABETH
[2019-02-02] MEDS: Lorazepam 2 MG/ML VIAL SLOW IVP PRN (16:33)
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
[2019-02-02] MEDS: diphenhydrAMINE 50 MG/ML VIAL IVP PRN (20:02)
[2019-02-03] MEDS: Acetaminophen 650 MG Suppository PR PRN (04:34)
[2019-02-03] MEDS: Baclofen 10 MG TAB PO SCH ×4 (07:39→21:26)
[2019-02-03] MEDS: clonazePAM 1 MG TAB PO SCH ×3 (07:39→21:26)
[2019-02-03] MEDS: risperiDONE 1 MG TAB PO SCH ×3 (07:40→21:26)
[2019-02-03] MEDS: Pantoprazole 40 MG VIAL IVP SCH ×2 (08:20→21:26)
[2019-02-03] MEDS: diphenhydrAMINE 50 MG/ML VIAL IVP PRN ×2 (08:22→21:26)
[2019-02-03] MEDS: predniSONE 20 MG TAB PO SCH (09:09)
[2019-02-03] MEDS: OXcarbazepine 150 MG TAB PER TUBE SCH (09:09)
[2019-02-03] MEDS: Sodium Chloride 0.9% 1,000 ML IV SCH ×2 (09:50→21:25)
--- NOTE | 2019-02-03 09:51 | PRG ---
DATE OF SERVICE: 02/03/2019 SUBJECTIVE: Still with encephalitis. He had a modified barium swallow, which showed laryngeal penetration and aspiration. He therefore, remains n.p.o. Did try to get the patient back on Hospice Service. It is unclear what they are going to do with his nutritional status though, since he has failed the swallow study. OBJECTIVE: VITAL SIGNS: Temperature 97, saturations are 90% on room air, respiratory rate 16, blood pressure 101/71. CHEST: Decreased breath sounds. No wheezing. CARDIAC: Normal S1, S2. No gallops. ABDOMEN: No masses. ASSESSMENT: 1. Recurrent aspiration. 2. Traumatic brain injury. 3. Encephalopathy. PLAN: Comfort care. We will follow. Job ID: [id number]
--- NOTE | 2019-02-03 15:47 | PDOC.HOSPP ---
- Subjective Encounter Date: 02/03/19 Encounter Time: 15:45 Subjective: No new complaints, family is not available to talk - Objective Vital Signs & Weight: Vital Signs (12 hours) Temp Pulse Resp BP Pulse Ox 02/03/19 11:47 96.1 F L 72 12 121/69 96 02/03/19 09:09 95 02/03/19 08:01 97.1 F L 83 17 107/71 95 02/03/19 07:27 93 L 02/03/19 07:24 87 16 93 L 02/03/19 04:00 97.6 F 81 16 123/33 L Weight Admit Weight 156 lb 8.451 oz Weight 135 lb Most Recent Monitor Data Heart Rate from ECG 84 NIBP 138/86 NIBP BP-Mean 103 Respiration from ECG 16 SpO2 98 I&O: 02/02/19 02/03/19 02/04/19 06:59 06:59 06:59 Intake Total 150 430 Output Total 450 400 Balance -300 30 Result Diagrams: 01/31/19 08:02 01/31/19 08:02 Hospitalist ROS - Medication Medications: Active Medications Generic Name Dose Route Start Last Admin Trade Name Freq PRN Reason Stop Dose Admin Acetaminophen 650 mg 01/23/19 16:26 02/03/19 04:34 Tylenol [place] 650 mg Q4H PRN Administration Headache/Fever/Mild Pain (1-3) Albuterol/Ipratropium 3 ml 01/23/19 19:00 02/03/19 13:28 Duoneb NEB Not Given [id number] CHAYO Baclofen 20 mg 02/01/19 09:00 02/03/19 15:30 Lioresal PO Not Given TID CHAYO Clonazepam 1 mg 02/01/19 21:00 02/03/19 09:09 Klonopin PO Not Given BID CHAYO Diltiazem HCl 30 mg 01/23/19 21:00 02/03/19 15:30 Cardizem PER TUBE Not Given TID CHAYO Diphenhydramine HCl 50 mg 02/02/19 17:02 02/03/19 08:22 Benadryl IVP 50 mg Q4H PRN Administration Agitation Enoxaparin Sodium 40 mg 01/29/19 09:00 01/31/19 09:16 Lovenox SC 40 mg 0900 CHAYO Administration Haloperidol Lactate 5 mg 02/02/19 07:46 02/02/19 15:48 Haldol IM 5 mg Q4H PRN Administration Agitation Levetiracetam 500 mg/ Device 100 mls @ 200 mls/hr 01/31/19 21:00 02/03/19 08: 22 IVPB 100 mls BID CHAYO Administration Sodium Chloride 1,000 mls @ 100 mls/hr 02/03/19 09:45 02/03/19 09:50 Normal Saline 0.9% IV 1,000 mls .Q10H CHAYO Administration Lorazepam 1 mg 01/29/19 20:09 02/02/19 16:33 Ativan SLOW IVP 1 mg Q6H PRN Administration Anxiety/Agitation Oxcarbazepine 150 mg 01/24/19 09:00 02/03/19 09:09 Trileptal PER TUBE Not Given DAILY CHAYO Pantoprazole Sodium 40 mg 01/31/19 21:00 02/03/19 08:20 Protonix IVP 40 mg Q12HR CHAYO Administration Prednisone 20 mg 02/01/19 08:03 02/03/19 09:09 Prednisone PO Not Given QAM-WM CHAYO Risperidone 1 mg 02/02/19 09:00 02/03/19 09:09 Risperidone PO Not Given BID CHAYO Scopolamine 3 mg 01/27/19 09:30 02/02/19 10:37 Transderm Scop TD 3 mg Q3D CHAYO Administration Sodium Chloride 10 ml 01/23/19 21:00 02/03/19 09:49 Flush - Normal Saline IVF 10 ml Q12HR CHAYO Administration Sodium Chloride 10 ml 01/23/19 20:58 02/01/19 12:10 Flush - Normal Saline IVF 10 ml PRN PRN Administration Saline Flush Venlafaxine HCl 75 mg 01/31/19 15:00 02/03/19 15:30 Effexor PO Not Given TID CHAYO
--- NOTE | 2019-02-03 16:09 | PDOC.HOSPP ---
- Subjective Encounter Date: 02/03/19 Encounter Time: 16:07 Subjective: The patient doing okay, no familiy availabla to talk - Objective Vital Signs & Weight: Vital Signs (12 hours) Temp Pulse Resp BP Pulse Ox 02/03/19 11:47 96.1 F L 72 12 121/69 96 02/03/19 09:09 95 02/03/19 08:01 97.1 F L 83 17 107/71 95 02/03/19 07:27 93 L 02/03/19 07:24 87 16 93 L Weight Admit Weight 156 lb 8.451 oz Weight 135 lb Most Recent Monitor Data Heart Rate from ECG 84 NIBP 138/86 NIBP BP-Mean 103 Respiration from ECG 16 SpO2 98 I&O: 02/02/19 02/03/19 02/04/19 06:59 06:59 06:59 Intake Total 150 430 Output Total 450 400 Balance -300 30 Result Diagrams: 01/31/19 08:02 01/31/19 08:02 Hospitalist ROS - Medication Medications: Active Medications Generic Name Dose Route Start Last Admin Trade Name Freq PRN Reason Stop Dose Admin Acetaminophen 650 mg 01/23/19 16:26 02/03/19 04:34 Tylenol [place] 650 mg Q4H PRN Administration Headache/Fever/Mild Pain (1-3) Albuterol/Ipratropium 3 ml 01/23/19 19:00 02/03/19 13:28 Duoneb NEB Not Given [id number] CHAYO Baclofen 20 mg 02/01/19 09:00 02/03/19 15:30 Lioresal PO Not Given TID CHAYO Clonazepam 1 mg 02/01/19 21:00 02/03/19 09:09 Klonopin PO Not Given BID CHAYO Diltiazem HCl 30 mg 01/23/19 21:00 02/03/19 15:30 Cardizem PER TUBE Not Given TID CHAYO Diphenhydramine HCl 50 mg 02/02/19 17:02 02/03/19 08:22 Benadryl IVP 50 mg Q4H PRN Administration Agitation Enoxaparin Sodium 40 mg 01/29/19 09:00 01/31/19 09:16 Lovenox SC 40 mg 0900 CHAYO Administration Haloperidol Lactate 5 mg 02/02/19 07:46 02/02/19 15:48 Haldol IM 5 mg Q4H PRN Administration Agitation Levetiracetam 500 mg/ Device 100 mls @ 200 mls/hr 01/31/19 21:00 02/03/19 08: 22 IVPB 100 mls BID CHAYO Administration Sodium Chloride 1,000 mls @ 100 mls/hr 02/03/19 09:45 02/03/19 09:50 Normal Saline 0.9% IV 1,000 mls .Q10H CHAYO Administration Lorazepam 1 mg 01/29/19 20:09 02/02/19 16:33 Ativan SLOW IVP 1 mg Q6H PRN Administration Anxiety/Agitation Oxcarbazepine 150 mg 01/24/19 09:00 02/03/19 09:09 Trileptal PER TUBE Not Given DAILY CHAYO Pantoprazole Sodium 40 mg 01/31/19 21:00 02/03/19 08:20 Protonix IVP 40 mg Q12HR CHAYO Administration Prednisone 20 mg 02/01/19 08:03 02/03/19 09:09 Prednisone PO Not Given QAM-WM CHAYO Risperidone 1 mg 02/02/19 09:00 02/03/19 09:09 Risperidone PO Not Given BID CHAYO Scopolamine 3 mg 01/27/19 09:30 02/02/19 10:37 Transderm Scop TD 3 mg Q3D CHAYO Administration Sodium Chloride 10 ml 01/23/19 21:00 02/03/19 09:49 Flush - Normal Saline IVF 10 ml Q12HR CHAYO Administration Sodium Chloride 10 ml 01/23/19 20:58 02/01/19 12:10 Flush - Normal Saline IVF 10 ml PRN PRN Administration Saline Flush Venlafaxine HCl 75 mg 01/31/19 15:00 02/03/19 15:30 Effexor PO Not Given TID CHAYO - Exam General Appearance: NAD, awake alert, ill appearing Eye: PERRL, anicteric sclera, scleral icterus ENT: normocephalic atraumatic, no oropharyngeal lesions, moist mucosa, dry oral mucosa Neck: supple, symmetric, no JVD, no thyromegaly, no lymphadenopathy, no carotid bruit, JVD Heart: RRR, no murmur, no gallops, no rubs, normal peripheral pulses, irregular , diminshed peripheral pulses, murmur present, II/IV, III/IV Respiratory: CTAB, no wheezes, no rales, no ronchi, normal chest expansion, no tachypnea, normal percussion, rales, rhonchi, tachypneic, wheezes Gastrointestinal: soft, non-tender, non-distended, normal bowel sounds, no palpable masses, no hepatomegaly, no splenomegaly, no bruit, no guarding, no rigidity, tender to palpation, distended, diminished bowl sounds, voluntary guarding Extremities: no cyanosis, no clubbing, no edema, 1+ LE edema, 2+ LE edema, clubbing Hosp A/P (1) Acute respiratory failure with hypoxia and hypercapnia Code(s): J96.01 - ACUTE RESPIRATORY FAILURE WITH HYPOXIA; J96.02 - ACUTE RESPIRATORY FAILURE WITH HYPERCAPNIA Status: Acute - Plan Family conference will be held. D/c Planning
--- NOTE | 2019-02-03 17:03 | PDOC.EVN ---
Event Note - Event Note Event Note: Spoke to the family/mother. The mother requests to feed as the patient has been requesting food. The risks of aspiration d/w the mother at [place]. The mother understands the risks of aspiration. She understands that he can develop pneumonia. ill would like to feed him as the patient has been pulling the NG tube as well as Peg tube out. consider palliative/pleasure feed as the mother is requesting to do so. Consult palliative care.
[2019-02-04] MEDS: Sodium Chloride 0.9% 1,000 ML IV SCH ×2 (07:30→17:13)
[2019-02-04] MEDS: clonazePAM 1 MG TAB PO SCH ×2 (08:48→21:18)
[2019-02-04] MEDS: Baclofen 10 MG TAB PO SCH ×3 (08:48→21:18)
[2019-02-04] MEDS: OXcarbazepine 150 MG TAB PER TUBE SCH (08:49)
[2019-02-04] MEDS: predniSONE 20 MG TAB PO SCH (08:49)
[2019-02-04] MEDS: risperiDONE 1 MG TAB PO SCH ×2 (08:49→21:18)
[2019-02-04] MEDS: Pantoprazole 40 MG VIAL IVP SCH ×2 (08:49→21:18)
--- NOTE | 2019-02-04 11:00 | PRG ---
DATE OF SERVICE: 02/04/2019 SUBJECTIVE: This morning, he is awake, alert, and responsive. OBJECTIVE: VITAL SIGNS: Temperature 97, pulse 76, saturations 94% on room air, respiratory rate 18, and blood pressure 110/69. CHEST: Decreased breath sounds. No wheezing. CARDIAC: Normal S1 and S2. No gallops. ABDOMEN: No masses. IMPRESSION: Recurrent aspiration, dysphagia, traumatic injury. PLAN: The patient is clearly eating his breakfast and dinner. He is at risk for aspiration as noted by his mother. DISPOSITION: Home any time. Job ID: [id number]
--- NOTE | 2019-02-04 11:34 | PDOC.HOSPP ---
- Subjective Encounter Date: 02/04/19 Encounter Time: 11:33 Subjective: eating little bit of food - Objective Vital Signs & Weight: Vital Signs (12 hours) Temp Pulse Resp BP Pulse Ox 02/04/19 07:52 97.5 F L 76 18 110/69 94 L 02/04/19 04:30 98.2 F 70 18 108/65 93 L 02/04/19 00:00 78 16 Weight Admit Weight 156 lb 8.451 oz Weight 135 lb 6.4 oz Most Recent Monitor Data Heart Rate from ECG 84 NIBP 138/86 NIBP BP-Mean 103 Respiration from ECG 16 SpO2 98 I&O: 02/03/19 02/04/19 02/05/19 06:59 06:59 06:59 Intake Total 430 5590 Output Total 400 Balance 30 5590 Result Diagrams: 01/31/19 08:02 01/31/19 08:02 Hospitalist ROS - Medication Medications: Active Medications Generic Name Dose Route Start Last Admin Trade Name Freq PRN Reason Stop Dose Admin Acetaminophen 650 mg 01/23/19 16:26 02/03/19 04:34 Tylenol [place] 650 mg Q4H PRN Administration Headache/Fever/Mild Pain (1-3) Albuterol/Ipratropium 3 ml 01/23/19 19:00 02/04/19 08:05 Duoneb NEB Not Given [id number] CHAYO Baclofen 20 mg 02/01/19 09:00 02/04/19 08:48 Lioresal PO 20 mg TID CHAYO Administration Clonazepam 1 mg 02/01/19 21:00 02/04/19 08:48 Klonopin PO 1 mg BID CHAYO Administration Diltiazem HCl 30 mg 01/23/19 21:00 02/04/19 08:48 Cardizem PER TUBE 30 mg TID CHAYO Administration Diphenhydramine HCl 50 mg 02/02/19 17:02 02/03/19 21:26 Benadryl IVP 50 mg Q4H PRN Administration Agitation Enoxaparin Sodium 40 mg 01/29/19 09:00 01/31/19 09:16 Lovenox SC 40 mg 0900 CHAYO Administration Haloperidol Lactate 5 mg 02/02/19 07:46 02/02/19 15:48 Haldol IM 5 mg Q4H PRN Administration Agitation Levetiracetam 500 mg/ Device 100 mls @ 200 mls/hr 01/31/19 21:00 02/04/19 08: 50 IVPB 100 mls BID CHAYO Administration Sodium Chloride 1,000 mls @ 100 mls/hr 02/03/19 09:45 02/03/19 21:25 Normal Saline 0.9% IV 1,000 mls .Q10H CHAYO Administration Lorazepam 1 mg 01/29/19 20:09 02/02/19 16:33 Ativan SLOW IVP 1 mg Q6H PRN Administration Anxiety/Agitation Oxcarbazepine 150 mg 01/24/19 09:00 02/04/19 08:49 Trileptal PER TUBE 150 mg DAILY CHAYO Administration Pantoprazole Sodium 40 mg 01/31/19 21:00 02/04/19 08:49 Protonix IVP 40 mg Q12HR CHAYO Administration Prednisone 20 mg 02/01/19 08:03 02/04/19 08:49 Prednisone PO 20 mg QAM-WM CHAYO Administration Risperidone 1 mg 02/02/19 09:00 02/04/19 08:49 Risperidone PO 1 mg BID CHAYO Administration Scopolamine 3 mg 01/27/19 09:30 02/02/19 10:37 Transderm Scop TD 3 mg Q3D CHAYO Administration Sodium Chloride 10 ml 01/23/19 21:00 02/04/19 09:16 Flush - Normal Saline IVF Not Given Q12HR CHAYO Sodium Chloride 10 ml 01/23/19 20:58 02/01/19 12:10 Flush - Normal Saline IVF 10 ml PRN PRN Administration Saline Flush Venlafaxine HCl 75 mg 01/31/19 15:00 02/04/19 08:48 Effexor PO 75 mg TID CHAYO Administration - Exam General Appearance: NAD, awake alert, ill appearing ENT: normocephalic atraumatic, no oropharyngeal lesions, moist mucosa, dry oral mucosa Neck: supple, symmetric, no JVD, no thyromegaly, no lymphadenopathy, no carotid bruit, JVD Heart: RRR, no murmur, no gallops, no rubs, normal peripheral pulses, irregular , diminshed peripheral pulses, murmur present, II/IV, III/IV Respiratory: CTAB, no wheezes, no rales, no ronchi, normal chest expansion, no tachypnea, normal percussion, rales, rhonchi, tachypneic, wheezes Gastrointestinal: soft, non-tender, non-distended, normal bowel sounds, no palpable masses, no hepatomegaly, no splenomegaly, no bruit, no guarding, no rigidity, tender to palpation, distended, diminished bowl sounds, voluntary guarding Extremities: no cyanosis, no clubbing, no edema, 1+ LE edema, 2+ LE edema, clubbing Hosp A/P (1) Acute respiratory failure with hypoxia and hypercapnia Code(s): J96.01 - ACUTE RESPIRATORY FAILURE WITH HYPOXIA; J96.02 - ACUTE RESPIRATORY FAILURE WITH HYPERCAPNIA Status: Acute - Plan Family conference will be held. D/c Planning. The mother requested to feed the patient.
[2019-02-04 13:25] VITALS: BMI 18.8
[2019-02-05] MEDS: Sodium Chloride 0.9% 1,000 ML IV SCH ×3 (02:34→22:11)
[2019-02-05] MEDS: Pantoprazole 40 MG VIAL IVP SCH ×2 (09:04→21:07)
[2019-02-05] MEDS: diphenhydrAMINE 50 MG/ML VIAL IVP PRN (09:04)
[2019-02-05] MEDS: Baclofen 10 MG TAB PO SCH ×2 (09:04→16:00)
[2019-02-05] MEDS: risperiDONE 1 MG TAB PO SCH (09:05)
[2019-02-05] MEDS: OXcarbazepine 150 MG TAB PER TUBE SCH (09:05)
[2019-02-05] MEDS: predniSONE 20 MG TAB PO SCH (09:07)
[2019-02-05] MEDS: clonazePAM 1 MG TAB PO SCH (09:07)
[2019-02-05] MEDS: Scopolamine 1.5 mg/72 hour Patch TD SCH (09:08)
[2019-02-05] MEDS: Lorazepam 2 MG/ML VIAL SLOW IVP PRN (11:14)
--- NOTE | 2019-02-05 12:23 | PDOC.HOSPP ---
- Subjective Encounter Date: 02/05/19 Encounter Time: 09:20 Subjective: Keeps his eyes open, not following commands, contracted.. - Objective Vital Signs & Weight: Vital Signs (12 hours) Temp Pulse Resp BP BP Pulse Ox 02/05/19 11:19 98 F 91 18 127/65 93 L 02/05/19 08:53 98.1 F 89 22 H 118/64 93 L 02/05/19 07:07 79 14 93 L 02/05/19 03:40 99.1 F 79 18 130/75 95 02/05/19 00:26 83 12 Weight Admit Weight 156 lb 8.451 oz Weight 139 lb 8 oz Most Recent Monitor Data Heart Rate from ECG 84 NIBP 138/86 NIBP BP-Mean 103 Respiration from ECG 16 SpO2 98 I&O: 02/04/19 02/05/19 02/06/19 06:59 06:59 06:59 Intake Total 5590 2560 Balance 5590 2560 Result Diagrams: 01/31/19 08:02 01/31/19 08:02 Hospitalist ROS - Medication Medications: Active Medications Generic Name Dose Route Start Last Admin Trade Name Freq PRN Reason Stop Dose Admin Acetaminophen 650 mg 01/23/19 16:26 02/03/19 04:34 Tylenol [place] 650 mg Q4H PRN Administration Headache/Fever/Mild Pain (1-3) Albuterol/Ipratropium 3 ml 01/23/19 19:00 02/05/19 07:07 Duoneb NEB 3 ml [id number] CHAYO Administration Baclofen 20 mg 02/01/19 09:00 02/05/19 09:04 Lioresal PO 20 mg TID CHAYO Administration Bisacodyl 10 mg 01/28/19 13:54 02/05/19 09:07 Dulcolax [place] 10 mg DAILYPRN PRN Administration Constipation Clonazepam 1 mg 02/01/19 21:00 02/05/19 09:07 Klonopin PO 1 mg BID CHAYO Administration Diltiazem HCl 30 mg 01/23/19 21:00 02/05/19 09:05 Cardizem PER TUBE 30 mg TID CHAYO Administration Diphenhydramine HCl 50 mg 02/02/19 17:02 02/05/19 09:04 Benadryl IVP 50 mg Q4H PRN Administration Agitation Enoxaparin Sodium 40 mg 10/12/19 09:00 01/31/19 09:16 Lovenox SC 40 mg 0900 CHAYO Administration Haloperidol Lactate 5 mg 02/02/19 07:46 02/02/19 15:48 Haldol IM 5 mg Q4H PRN Administration Agitation Levetiracetam 500 mg/ Device 100 mls @ 200 mls/hr 01/31/19 21:00 02/05/19 09: 02 IVPB 100 mls BID CHAYO Administration Sodium Chloride 1,000 mls @ 100 mls/hr 02/03/19 09:45 02/05/19 11:20 Normal Saline 0.9% IV 1,000 mls .Q10H CHAYO Administration Lorazepam 1 mg 01/29/19 20:09 02/05/19 11:14 Ativan SLOW IVP 1 mg Q6H PRN Administration Anxiety/Agitation Oxcarbazepine 150 mg 01/24/19 09:00 02/05/19 09:05 Trileptal PER TUBE 150 mg DAILY CHAYO Administration Pantoprazole Sodium 40 mg 01/31/19 21:00 02/05/19 09:04 Protonix IVP 40 mg Q12HR CHAYO Administration Prednisone 20 mg 02/01/19 08:03 02/05/19 09:07 Prednisone PO 20 mg QAM-WM CHAYO Administration Risperidone 1 mg 02/02/19 09:00 02/05/19 09:05 Risperidone PO 1 mg BID CHAYO Administration Scopolamine 3 mg 01/27/19 09:30 02/05/19 09:08 Transderm Scop TD 3 mg Q3D CHAYO Administration Sodium Chloride 10 ml 01/23/19 21:00 02/05/19 09:45 Flush - Normal Saline IVF Not Given Q12HR CHYAO Sodium Chloride 10 ml 01/23/19 20:58 02/01/19 12:10 Flush - Normal Saline IVF 10 ml PRN PRN Administration Saline Flush Venlafaxine HCl 75 mg 01/31/19 15:00 02/05/19 09:05 Effexor PO 75 mg TID CHAYO Administration - Exam ENT: normocephalic atraumatic Neck: supple, no JVD Heart: RRR Respiratory: CTAB Gastrointestinal: soft Extremities: no edema Hosp A/P (1) Acute respiratory failure with hypoxia and hypercapnia Code(s): J96.01 - ACUTE RESPIRATORY FAILURE WITH HYPOXIA; J96.02 - ACUTE RESPIRATORY FAILURE WITH HYPERCAPNIA Status: Acute (2) Aspiration pneumonia Code(s): J69.0 - PNEUMONITIS DUE TO INHALATION OF FOOD AND VOMIT Status: Acute (3) Protein-calorie malnutrition, moderate Code(s): E44.0 - MODERATE PROTEIN-CALORIE MALNUTRITION Status: Chronic (4) Anxiety and depression Code(s): F41.9 - ANXIETY DISORDER, UNSPECIFIED; F32.9 - MAJOR DEPRESSIVE DISORDER, SINGLE EPISODE, UNSPECIFIED Status: Chronic (5) Oropharyngeal dysphagia Code(s): R13.12 - DYSPHAGIA, OROPHARYNGEAL PHASE Status: Chronic - Plan Condition is critical... Considering hospice.
[2019-02-05 20:01] LABS: Actual Bicarbonate (HCO3a) 20.9 mEq/L (22-28); Base Excess (BEa) -2.3 mEq/L (-2.0 to +3.0); CO2 Tension 31.7 mmHg (35.0-45.0); Calcium, Ionized 1.15 mmol/L (1.12-1.30); Carboxyhemoglobin (COHb) 0.9 gm% (0.0-3.0); Hemoglobin (Hb) 13.7 g/dL (14.0-18.0); Potassium - ABG Lab 3.71 mmol/L (3.70-5.30); pH, Arterial 7.44 (7.35-7.45)
[2019-02-05 20:02] LABS: O2 Tension (PaO2) 56.4 mmHg (80.0-100.0)
[2019-02-05 20:03] LABS: ALV-art Gradient 103.615 (0-20); Puncture Site RRA
--- NOTE | 2019-02-05 20:10 | RAD ---
EXAM: Single view of the chest HISTORY: Aspiration COMPARISON: 01/26/2019 FINDINGS: Single view of the chest shows a normal sized cardiomediastinal silhouette. There is eleva tion of the left hemidiaphragm with atelectasis in the left lung base. No pleural effusion is seen. The bones are unremarkable. IMPRESSION: Left basilar atelectasis
[2019-02-05 20:24] LABS: #Lymphocytes 0.6 thou/uL (1.20-3.40); #Monocytes 1.1 thou/uL (0.11-0.59); #Neutrophils 12.3 thou/uL (1.40-6.50); %Basophils 0.1 % (0.0-1.0); %Eosinophils 0.2 % (0.0-10.0); %Lymphocytes 4.4 % (21.0-51.0); %Monocytes 7.5 % (0.0-10.0); %Neutrophils 87.9 % (42.0-75.0); Hemoglobin 15.9 g/dL (14.0-18.0); Mean Corpuscular HGB CONC 32.5 g/dL (32.0-36.0); Mean Corpuscular Hemoglobin 28.4 pg (27.0-31.0); Mean Corpuscular Volume 87.4 fL (78.0-98.0); Mean Platelet Volume 6.9 fL (7.4-10.4); Platelet Count 264 thou/uL (130-400); RBC Distribution Width 13.7 % (11.5-14.5); Red Blood Cell (RBC) Count 5.58 mill/uL (4.70-6.10)
--- NOTE | 2019-02-05 20:33 | PDOC.EVN ---
Event Note - Event Note Event Note: Pt assessed for tachypnea. Nonverbal. SaO2 high 90s on supplemental oxygen. S1, S2, reg. Lungs CTA. A/P: ? Recurrent aspiration, Await blood work. CXR nil acute. ABGs show hypoxia, no hypercapnia. Start antibiotics for presumed aspiration. Pt known to pulmonology if need to be intubated or started on BiPAP.
[2019-02-05 20:45] LABS: ALT (SGPT) 37 U/L (8-55); AST (SGOT) 14 U/L (5-34); Albumin 4.2 g/dL (3.5-5.0); Alkaline Phosphatase 95 U/L (40-110); Anion Gap 18 mmol/L (10-20); BUN (Urea Nitrogen) 6 mg/dL (8.9-20.6); Bilirubin, Total 0.7 mg/dL (0.2-1.2); Calc. Creatinine Clearance 118 mL/min (70-130); Calcium 9.2 mg/dL (7.8-10.44); Carbon Dioxide 18 mmol/L (22-29); Chloride 107 mmol/L (98-107); Estimated GFR-MDRD Greater than 90; Globulin 3.6 g/dL (2.4-3.5); Glucose 86 mg/dL (70-105); Potassium 3.9 mmol/L (3.5-5.1); Protein, Total 7.8 g/dL (6.0-8.3); Sodium 139 mmol/L (136-145)
--- NOTE | 2019-02-05 20:53 | PDOC.EVN ---
Event Note - Event Note Event Note: Discussed with Dr. Ashford re: bloodwork and clinical presentation. Plan is to transfer pt to IMCU and start high-flow oxygen at 40 LPM. If clinical worsening , pt may need intubation.
[2019-02-05] MEDS: Vancomycin HCl 1.5 GM in Sodium Chloride 0.9% 250 ML 300 ML IVPB SCH (21:12)
[2019-02-05 21:54] VITALS: BP 136/74
[2019-02-05] MEDS: Piperacillin/Tazobactam 4.5 GM in Sodium Chloride 0.9% 100 ML IVPB SCH (22:15)
[2019-02-05] MEDS: metroNIDAZOLE 500 MG in Premix Bag 1 BAG IVPB SCH (23:07)
[2019-02-06] MEDS: Piperacillin/Tazobactam 4.5 GM in Sodium Chloride 0.9% 100 ML IVPB SCH ×3 (06:20→21:53)
[2019-02-06] MEDS: metroNIDAZOLE 500 MG in Premix Bag 1 BAG IVPB SCH ×2 (07:20→15:05)
[2019-02-06] MEDS: Pantoprazole 40 MG VIAL IVP SCH ×2 (07:21→20:33)
[2019-02-06] MEDS: Sodium Chloride 0.9% 1,000 ML IV SCH ×2 (07:24→16:33)
[2019-02-06] MEDS: Vancomycin HCl 1.5 GM in Sodium Chloride 0.9% 250 ML 300 ML IVPB SCH ×2 (08:31→20:34)
--- NOTE | 2019-02-06 10:36 | PRG ---
DATE OF SERVICE: 02/06/2019 SUBJECTIVE: Tani Shah was transferred last night from telemetry unit to the ICU because he was breathing at 40 to 50 times a minute. He was told to be placed on high-flow, which he has done even though he has significant swallow study fail. His mother wants him to be fed. His mother wants him to be a full code and mother does not want him to have a PEG. His x-ray yesterday shows a previously described left lung atelectatic changes with an elevated right hemidiaphragm. OBJECTIVE: VITAL SIGNS: This morning, he is on high-flow. His O2 saturations are 96. Breathing still 40 times a minute. Blood pressure 138/80. CHEST: No rhonchi or crackles. CARDIAC: Sinus tach. No gallops. ABDOMEN: No masses. LABORATORY DATA: His pO2 was 56 and pCO2 was 31.4 yesterday on 2 L. His lytes are normal. Albumin is 4.2. Cultures were negative. White count is currently 14,000. ASSESSMENT AND PLAN: 1. Probably recurrent aspiration for failed swallow study, dysphagia. 2. Full code. Family does not want a percutaneous endoscopic gastrostomy. This is a very difficult situation with this patient. Unfortunately, mother is not able to come to the hospital. I suggested that we restart his home medication. He was started on broad-spectrum antibiotics last night for presumed aspiration and febrile illness. One-half hour of critical care time. Job ID: [id number]
--- NOTE | 2019-02-06 12:14 | PDOC.HOSPP ---
- Subjective Encounter Date: 02/06/19 Encounter Time: 11:00 Subjective: Keeps his eyes close, not following commands. On high flow O2 - Objective Vital Signs & Weight: Vital Signs (12 hours) Temp Pulse Resp Pulse Ox 02/06/19 10:00 98.7 F 02/06/19 07:54 98.7 F 02/06/19 07:22 86 24 H 97 02/06/19 07:04 98 02/06/19 07:00 98.7 F 02/06/19 04:00 99.0 F Weight Admit Weight 156 lb 8.451 oz Weight 139 lb 1.787 oz Most Recent Monitor Data Heart Rate from ECG 82 NIBP 134/80 NIBP BP-Mean 98 Respiration from ECG 34 SpO2 99 I&O: 02/05/19 02/06/19 02/07/19 06:59 06:59 06:59 Intake Total 2560 2267 0 Output Total 1200 Balance 2560 2267 -1200 Result Diagrams: 02/05/19 20:16 02/05/19 20:16 Hospitalist ROS - Medication Medications: Active Medications Generic Name Dose Route Start Last Admin Trade Name Freq PRN Reason Stop Dose Admin Acetaminophen 650 mg 01/23/19 16:26 02/03/19 04:34 Tylenol [place] 650 mg Q4H PRN Administration Headache/Fever/Mild Pain (1-3) Albuterol/Ipratropium 3 ml 01/23/19 19:00 02/06/19 07:22 Duoneb NEB 3 ml [id number] CHAYO Administration Bisacodyl 10 mg 01/28/19 13:54 02/05/19 09:07 Dulcolax [place] 10 mg DAILYPRN PRN Administration Constipation Diphenhydramine HCl 50 mg 02/02/19 17:02 02/05/19 09:04 Benadryl IVP 50 mg Q4H PRN Administration Agitation Enoxaparin Sodium 40 mg 01/29/19 09:00 01/31/19 09:16 Lovenox SC 40 mg 0900 CHAYO Administration Haloperidol Lactate 5 mg 02/02/19 07:46 02/02/19 15:48 Haldol IM 5 mg Q4H PRN Administration Agitation Levetiracetam 500 mg/ Device 100 mls @ 200 mls/hr 01/31/19 21:00 02/06/19 07: 20 IVPB 100 mls BID CHAYO Administration Sodium Chloride 1,000 mls @ 100 mls/hr 02/03/19 09:45 02/06/19 07:24 Normal Saline 0.9% IV 1,000 mls .Q10H CHAYO Administration Vancomycin HCl 1.5 gm/ Sodium 300 mls @ 200 mls/hr 02/05/19 21:00 02/06/19 08 :31 Chloride IVPB 300 mls Q12HR CHAYO Administration Metronidazole 500 mg/ Device 100 mls @ 100 mls/hr 02/05/19 23:59 02/06/19 07: 20 IVPB 100 mls 0800,1600,2359 CHAYO Administration Piperacillin Sod/Tazobactam 100 mls @ 200 mls/hr 02/05/19 22:00 02/06/19 06: 20 Sod 4.5 gm/ Sodium Chloride IVPB 100 mls Q8HR CHAYO Administration Lorazepam 1 mg 01/29/19 20:09 02/05/19 11:14 Ativan SLOW IVP 1 mg Q6H PRN Administration Anxiety/Agitation Pantoprazole Sodium 40 mg 01/31/19 21:00 02/06/19 07:21 Protonix IVP 40 mg Q12HR CHAYO Administration Scopolamine 3 mg 01/27/19 09:30 02/05/19 09:08 Transderm Scop TD 3 mg Q3D CHAYO Administration Sodium Chloride 10 ml 01/23/19 21:00 02/06/19 08:31 Flush - Normal Saline IVF 10 ml Q12HR CHAYO Administration Sodium Chloride 10 ml 01/23/19 20:58 02/01/19 12:10 Flush - Normal Saline IVF 10 ml PRN PRN Administration Saline Flush - Exam ENT: normocephalic atraumatic Neck: no JVD Heart: RRR Respiratory: CTAB Gastrointestinal: soft Extremities: no edema Musculoskeletal - other findings: Contracted.. Hosp A/P (1) Acute respiratory failure with hypoxia and hypercapnia Code(s): J96.01 - ACUTE RESPIRATORY FAILURE WITH HYPOXIA; J96.02 - ACUTE RESPIRATORY FAILURE WITH HYPERCAPNIA Status: Acute (2) Aspiration pneumonia Code(s): J69.0 - PNEUMONITIS DUE TO INHALATION OF FOOD AND VOMIT Status: Acute (3) Protein-calorie malnutrition, moderate Code(s): E44.0 - MODERATE PROTEIN-CALORIE MALNUTRITION Status: Chronic (4) Anxiety and depression Code(s): F41.9 - ANXIETY DISORDER, UNSPECIFIED; F32.9 - MAJOR DEPRESSIVE DISORDER, SINGLE EPISODE, UNSPECIFIED Status: Chronic (5) Oropharyngeal dysphagia Code(s): R13.12 - DYSPHAGIA, OROPHARYNGEAL PHASE Status: Chronic - Plan Condition is critical... Deteriorated last night. Considering hospice.
[2019-02-06] MEDS: diphenhydrAMINE 50 MG/ML VIAL IVP PRN (20:33)
[2019-02-06] MEDS: Lorazepam 2 MG/ML VIAL SLOW IVP PRN (21:46)
[2019-02-07] MEDS: metroNIDAZOLE 500 MG in Premix Bag 1 BAG IVPB SCH ×2 (00:08→07:52)
[2019-02-07] MEDS: Sodium Chloride 0.9% 1,000 ML IV SCH ×2 (03:59→14:02)
[2019-02-07] MEDS: Haloperidol Lactate 5 MG/ML VIAL IM PRN (04:06)
[2019-02-07 04:41] LABS: Actual Bicarbonate (HCO3a) 21.6 mEq/L (22-28); Base Excess (BEa) -1.4 mEq/L (-2.0 to +3.0); CO2 Tension 31.1 mmHg (35.0-45.0); Calcium, Ionized 1.13 mmol/L (1.12-1.30); Carboxyhemoglobin (COHb) 0.6 gm% (0.0-3.0); Hemoglobin (Hb) 12.5 g/dL (14.0-18.0); O2 Tension (PaO2) 71.1 mmHg (80.0-100.0); Potassium - ABG Lab 3.23 mmol/L (3.70-5.30); pH, Arterial 7.46 (7.35-7.45)
[2019-02-07 04:44] LABS: ALV-art Gradient 160.965 (0-20); Puncture Site RRAD
[2019-02-07] MEDS: Acetaminophen 650 MG Suppository PR PRN ×3 (05:05→20:30)
[2019-02-07] MEDS: Piperacillin/Tazobactam 4.5 GM in Sodium Chloride 0.9% 100 ML IVPB SCH ×3 (05:05→21:06)
[2019-02-07] MEDS: Prazosin HCl 1 MG CAP PO SCH (07:53)
[2019-02-07] MEDS: Pantoprazole 40 MG VIAL IVP SCH ×2 (07:53→20:29)
[2019-02-07 08:25] LABS: Vancomycin, Trough 7.8 ug/mL
[2019-02-07] MEDS: Vancomycin HCl 1.5 GM in Sodium Chloride 0.9% 250 ML 300 ML IVPB SCH (08:49)
[2019-02-07] MEDS ORDERED: HYDROcodone/Acetaminophen 10/325 mg Tablet PO PRN (09:08)
--- NOTE | 2019-02-07 09:31 | PRG ---
DATE OF SERVICE: 02/07/2019 SUBJECTIVE: This morning, he is agitated. OBJECTIVE: VITAL SIGNS: He is breathing 40 times a minute, pulse of 100, blood pressure 140/80, and temperature is 102.2. CHEST: Decreased breath sounds without any wheezing. CARDIAC: Sinus tach. ABDOMEN: Soft. LABORATORY DATA: His white count from yesterday showed 14,000. IMPRESSION: 1. Febrile illness. Probably recurrent aspiration. He is on Zosyn, vancomycin, and steroids. 2. 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 PLAN: I added low-dose risperidone. Chest x-ray being ordered. Family wants everything to be done. trousseau consultant is mom. Job ID: [id number]
--- NOTE | 2019-02-07 09:36 | RAD ---
Portable frontal chest radiograph: 02/07/2019 COMPARISON: 01/31/2019 HISTORY: Pneumonia FINDINGS: Stable nonspecific chondroid lesion noted within the proximal right humerus. There is a nasogastric tube in place, stable. Right lung is clear. There is elevation of the left hemidiaphragm. There is dense opacity in the left perihilar region and left lung base suggesting infectious pneumonitis, aspiration, and/or volume loss, stable. Postoperative clips are noted in the left hilar region. IMPRESSION: Stable appearance of the chest.
[2019-02-07] MEDS: Lorazepam 2 MG/ML VIAL SLOW IVP PRN (11:45)
--- NOTE | 2019-02-07 12:15 | PDOC.HOSPP ---
- Subjective Encounter Date: 02/07/19 Encounter Time: 12:12 non-verbal - Objective Vital Signs & Weight: Vital Signs (12 hours) Temp Pulse Resp Pulse Ox 02/07/19 10:42 93 L 02/07/19 07:22 100 02/07/19 07:00 99 02/07/19 06:59 94 36 H 99 02/07/19 04:00 102.2 F H 02/07/19 00:21 87 41 H 100 Weight Admit Weight 156 lb 8.451 oz Weight 139 lb 15.896 oz Most Recent Monitor Data Heart Rate from ECG 99 NIBP 121/84 NIBP BP-Mean 96 Respiration from ECG 49 SpO2 93 I&O: 02/06/19 02/07/19 02/08/19 06:59 06:59 06:59 Intake Total 2267 3584 0 Output Total 2650 300 Balance 2267 934 -300 Result Diagrams: 02/05/19 20:16 02/05/19 20:16 Hospitalist ROS - Medication Medications: Active Medications Generic Name Dose Route Start Last Admin Trade Name Freq PRN Reason Stop Dose Admin Acetaminophen 650 mg 01/23/19 16:26 02/07/19 05:05 Tylenol [place] 650 mg Q4H PRN Administration Headache/Fever/Mild Pain (1-3) Hydrocodone Bitart/Acetaminophen 1 tab 02/07/19 09:08 02/07/19 09:20 [place] 10/325 PO 1 tab Q8HR PRN Administration Moderate Pain (4-7) Albuterol/Ipratropium 3 ml 01/23/19 19:00 02/07/19 06:59 Duoneb NEB 3 ml [id number] CHAYO Administration Bisacodyl 10 mg 01/28/19 13:54 02/05/19 09:07 Dulcolax [place] 10 mg DAILYPRN PRN Administration Constipation Diphenhydramine HCl 50 mg 02/02/19 17:02 02/06/19 20:33 Benadryl IVP 50 mg Q4H PRN Administration Agitation Enoxaparin Sodium 40 mg 01/29/19 09:00 01/31/19 09:16 Lovenox SC 40 mg 0900 CHAYO Administration Haloperidol Lactate 5 mg 02/02/19 07:46 02/07/19 04:06 Haldol IM 5 mg Q4H PRN Administration Agitation Levetiracetam 500 mg/ Device 100 mls @ 200 mls/hr 01/31/19 21:00 02/07/19 07: 54 IVPB 100 mls BID CHAYO Administration Sodium Chloride 1,000 mls @ 100 mls/hr 02/03/19 09:45 02/07/19 03:59 Normal Saline 0.9% IV 1,000 mls .Q10H CHAYO Administration Piperacillin Sod/Tazobactam 100 mls @ 200 mls/hr 02/05/19 22:00 02/07/19 05: 05 Sod 4.5 gm/ Sodium Chloride IVPB 100 mls Q8HR CHAYO Administration Vancomycin HCl 2 gm/ Sodium 500 mls @ 250 mls/hr 02/07/19 09:00 02/07/19 09: 12 Chloride IVPB 500 mls Q12HR CHAYO Administration Lorazepam 1 mg 01/29/19 20:09 02/07/19 11:45 Ativan SLOW IVP 1 mg Q6H PRN Administration Anxiety/Agitation Pantoprazole Sodium 40 mg 01/31/19 21:00 02/07/19 07:53 Protonix IVP 40 mg Q12HR CHAYO Administration Prazosin HCl 1 mg 02/07/19 09:00 02/07/19 07:53 Minipress PO 1 mg DAILY CHAYO Administration Scopolamine 3 mg 01/27/19 09:30 02/05/19 09:08 Transderm Scop TD 3 mg Q3D CHAYO Administration Sodium Chloride 10 ml 01/23/19 21:00 02/07/19 07:59 Flush - Normal Saline IVF 10 ml Q12HR CHAYO Administration Sodium Chloride 10 ml 01/23/19 20:58 02/01/19 12:10 Flush - Normal Saline IVF 10 ml PRN PRN Administration Saline Flush - Exam Neck: no JVD Heart: RRR, no murmur Respiratory - other findings: scattered rhonchi, coarde BD Gastrointestinal: soft, normal bowel sounds Extremities: no edema Hosp A/P (1) Aspiration pneumonia Code(s): J69.0 - PNEUMONITIS DUE TO INHALATION OF FOOD AND VOMIT Status: Acute Qualifiers: Aspiration pneumonia type: due to regurgitated food Laterality: unspecified laterality (2) Acute respiratory failure with hypoxia and hypercapnia Code(s): J96.01 - ACUTE RESPIRATORY FAILURE WITH HYPOXIA; J96.02 - ACUTE RESPIRATORY FAILURE WITH HYPERCAPNIA Status: Acute (3) Encephalopathy chronic Code(s): G93.49 - OTHER ENCEPHALOPATHY Status: Chronic (4) Oropharyngeal dysphagia Code(s): R13.12 - DYSPHAGIA, OROPHARYNGEAL PHASE Status: Chronic (5) TBI (traumatic brain injury) Code(s): S06.9X9A - UNSP INTRACRANIAL INJURY W LOC OF UNSP DURATION, INIT Status: Chronic Qualifiers: Encounter type: sequela - Plan O2, broad spectrum antibx prognosis 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
[2019-02-07] MEDS ORDERED: Morphine 4 MG/ML VIAL ONE (15:26)
[2019-02-07] MEDS: risperiDONE 0.25 MG TAB PO SCH (20:29)
[2019-02-08] MEDS: Sodium Chloride 0.9% 1,000 ML IV SCH ×2 (04:37→13:49)
[2019-02-08] MEDS: Lorazepam 2 MG/ML VIAL SLOW IVP PRN ×3 (04:37→14:54)
[2019-02-08] MEDS: Piperacillin/Tazobactam 4.5 GM in Sodium Chloride 0.9% 100 ML IVPB SCH ×3 (05:46→21:28)
--- NOTE | 2019-02-08 07:16 | PDOC.HOSPP ---
- Subjective Encounter Date: 02/08/19 Encounter Time: 07:14 non-verbal - Objective Vital Signs & Weight: Vital Signs (12 hours) Temp Pulse Resp Pulse Ox 02/08/19 07:05 78 02/08/19 07:04 77 29 H 95 02/08/19 07:02 97 02/08/19 07:00 99.5 F 02/08/19 04:00 100.4 F H 02/08/19 01:52 95 02/08/19 01:49 85 02/08/19 01:48 87 35 H 95 02/08/19 00:00 99.9 F H 02/07/19 22:27 82 02/07/19 21:00 100.9 F H 02/07/19 20:00 96 Weight Admit Weight 156 lb 8.451 oz Weight 139 lb 12.369 oz Most Recent Monitor Data Heart Rate from ECG 76 NIBP 128/78 NIBP BP-Mean 94 Respiration from ECG 29 SpO2 94 I&O: 02/07/19 02/08/19 02/09/19 06:59 06:59 06:59 Intake Total 3584 3981 0 Output Total 2650 1500 220 Balance 934 2481 -220 Result Diagrams: 02/05/19 20:16 02/05/19 20:16 Hospitalist ROS - Medication Medications: Active Medications Generic Name Dose Route Start Last Admin Trade Name Freq PRN Reason Stop Dose Admin Acetaminophen 650 mg 01/23/19 16:26 02/07/19 20:30 Tylenol [place] 650 mg Q4H PRN Administration Headache/Fever/Mild Pain (1-3) Hydrocodone Bitart/Acetaminophen 1 tab 02/07/19 09:08 02/07/19 09:20 [place] 10/325 PO 1 tab Q8HR PRN Administration Moderate Pain (4-7) Albuterol/Ipratropium 3 ml 01/23/19 19:00 02/08/19 07:04 Duoneb NEB 3 ml [id number] CHAYO Administration Bisacodyl 10 mg 01/28/19 13:54 02/05/19 09:07 Dulcolax [place] 10 mg DAILYPRN PRN Administration Constipation Diphenhydramine HCl 50 mg 02/02/19 17:02 02/06/19 20:33 Benadryl IVP 50 mg Q4H PRN Administration Agitation Enoxaparin Sodium 40 mg 01/29/19 09:00 01/31/19 09:16 Lovenox SC 40 mg 0900 CHAYO Administration Haloperidol Lactate 5 mg 02/02/19 07:46 02/07/19 04:06 Haldol IM 5 mg Q4H PRN Administration Agitation Levetiracetam 500 mg/ Device 100 mls @ 200 mls/hr 01/31/19 21:00 02/07/19 20: 28 IVPB 100 mls BID CHAYO Administration Sodium Chloride 1,000 mls @ 100 mls/hr 02/03/19 09:45 02/08/19 04:37 Normal Saline 0.9% IV 1,000 mls .Q10H CHAYO Administration Piperacillin Sod/Tazobactam 100 mls @ 200 mls/hr 02/05/19 22:00 02/08/19 05: 46 Sod 4.5 gm/ Sodium Chloride IVPB 100 mls Q8HR CHAYO Administration Vancomycin HCl 2 gm/ Sodium 500 mls @ 250 mls/hr 02/07/19 09:00 02/07/19 20: 30 Chloride IVPB 500 mls Q12HR CHAYO Administration Lorazepam 1 mg 01/29/19 20:09 02/08/19 04:37 Ativan SLOW IVP 1 mg Q6H PRN Administration Anxiety/Agitation Pantoprazole Sodium 40 mg 01/31/19 21:00 02/07/19 20:29 Protonix IVP 40 mg Q12HR CHAYO Administration Prazosin HCl 1 mg 02/07/19 09:00 02/07/19 07:53 Minipress PO 1 mg DAILY CHAYO Administration Risperidone 0.25 mg 02/07/19 21:00 02/07/19 20:29 Risperidone PO 0.25 mg BID CHAYO Administration Scopolamine 3 mg 01/27/19 09:30 02/05/19 09:08 Transderm Scop TD 3 mg Q3D CHAYO Administration Sodium Chloride 10 ml 01/23/19 21:00 02/07/19 20:29 Flush - Normal Saline IVF 10 ml Q12HR CHAYO Administration Sodium Chloride 10 ml 01/23/19 20:58 02/01/19 12:10 Flush - Normal Saline IVF 10 ml PRN PRN Administration Saline Flush - Exam Neck: no JVD Heart: RRR, no murmur Respiratory - other findings: adequate BS Gastrointestinal: soft, non-tender, normal bowel sounds Extremities: no edema Extremities - other findings: contracted Hosp A/P (1) Aspiration pneumonia Code(s): J69.0 - PNEUMONITIS DUE TO INHALATION OF FOOD AND VOMIT Status: Acute Qualifiers: Aspiration pneumonia type: due to regurgitated food Laterality: unspecified laterality (2) Acute respiratory failure with hypoxia and hypercapnia Code(s): J96.01 - ACUTE RESPIRATORY FAILURE WITH HYPOXIA; J96.02 - ACUTE RESPIRATORY FAILURE WITH HYPERCAPNIA Status: Acute (3) Encephalopathy chronic Code(s): G93.49 - OTHER ENCEPHALOPATHY Status: Chronic (4) Oropharyngeal dysphagia Code(s): R13.12 - DYSPHAGIA, OROPHARYNGEAL PHASE Status: Chronic (5) TBI (traumatic brain injury) Code(s): S06.9X9A - UNSP INTRACRANIAL INJURY W LOC OF UNSP DURATION, INIT Status: Chronic Qualifiers: Encounter type: sequela - Plan O2, broad spectrum antibx prognosis poor difficult situation. family wants full support while with holding PEG, etc will attempt to discuss with family today
[2019-02-08] MEDS: risperiDONE 0.25 MG TAB PO SCH ×2 (07:43→21:29)
[2019-02-08] MEDS: Prazosin HCl 1 MG CAP PO SCH (07:43)
[2019-02-08] MEDS: Pantoprazole 40 MG VIAL IVP SCH ×2 (07:44→21:28)
--- NOTE | 2019-02-08 09:02 | RAD ---
EXAM: Single view of the chest HISTORY: Pneumonia COMPARISON: 02/07/2019 FINDINGS: Single view of the chest shows an enlarged but stable cardiomediastinal silhouette. There is elevation left hemidiaphragm. Consolidation is seen in the left upper lobe. An NG tube is seen in the stomach. The bones are unremarkable. IMPRESSION: Left upper lobe pneumonia
--- NOTE | 2019-02-08 09:12 | PRG ---
DATE OF SERVICE: 02/08/2019 SUBJECTIVE: Tani Shah is a 48-year-old gentleman, who remains tachypneic at a rate of 30, he is on high-flow. Yesterday, he was breathing 50 times a minute. Still remains encephalopathic. OBJECTIVE: VITAL SIGNS: Pulse is 86, blood pressure 130/70, saturations are 93% on a BiPAP, and his maximum temperature has been 99. CHEST: Decreased breath sounds without any wheezing. CARDIAC: Normal S1 and S2. No gallops. ABDOMEN: No masses. DIAGNOSTIC DATA: So far cultures are negative. His x-ray as of yesterday shows the elevated left hemidiaphragm with atelectatic changes. Cultures negative. ASSESSMENT: 1. Febrile illness. 2. Aspiration pneumonia. 3. Failed swallow study multiple times. 4. Traumatic brain injury. 5. Seizure disorders. PLAN: His mother is going to come today to discuss the ongoing issues and will call Palliative Care to see the patient. His long-term prognosis is grave. He may require repeat trach and a PEG and that is what his mother wants. He remains encephalopathic in spite of multiple medication. One-half hour of critical care time. Job ID: [id number]
[2019-02-08] MEDS: Scopolamine 1.5 mg/72 hour Patch TD SCH (09:18)
[2019-02-08] MEDS: hydrOXYzine 25 MG TAB PO SCH (09:46)
--- NOTE | 2019-02-08 12:14 | PDOC.PALF ---
Purpose of Conference: Discuss Goals of Care Care Providers Present: Dr Ashford, Elena Payton second mate, Kristofer MOYER CCUPhilip [facility] Family Members Present: Patient mother and her who is not the biological father of the patient Meeting Comments: Dr Ashford provided the mother with an overview of patient current health status, respiratory dependence on the Bipap/High flow O2 and continued decline related to chronic conditions related to traumatic head injury. Goals of Care: *Patient to be anointed with holy water by Father Oziel *DNAR *Hospice for comfort / Choice letter for [facility] as that is who patient had in the past Summary: Mother states she wants to honor her son and prevent further suffering. Hopes that he can return to [facility] as that is where he has been and "they know him there". Hospice evaluation to determine if patient to be GIP or able to transfer to [place]. Total Time Spent with Family: 60 min
[2019-02-08] MEDS ORDERED: Morphine 4 MG/ML VIAL SLOW IVP PRN (14:47)
[2019-02-08] MEDS: Acetaminophen 650 MG Suppository PR PRN (21:23)
[2019-02-09] MEDS: Lorazepam 2 MG/ML VIAL SLOW IVP PRN (00:54)
[2019-02-09] MEDS: Sodium Chloride 0.9% 1,000 ML IV SCH ×2 (03:31→06:17)
[2019-02-09] MEDS: Piperacillin/Tazobactam 4.5 GM in Sodium Chloride 0.9% 100 ML IVPB SCH (06:18)
[2019-02-09 07:16] VITALS: TEMP 99.6
[2019-02-09] MEDS: Pantoprazole 40 MG VIAL IVP SCH (08:12)
[2019-02-09] MEDS: hydrOXYzine 25 MG TAB PO SCH (08:42)
[2019-02-09] MEDS: risperiDONE 0.25 MG TAB PO SCH (08:42)
[2019-02-09] MEDS: Prazosin HCl 1 MG CAP PO SCH (08:42)
--- NOTE | 2019-02-09 09:24 | PRG ---
DATE OF SERVICE: 02/09/2019 SUBJECTIVE: This morning, he is less responsive. He was given morphine and Ativan. OBJECTIVE: VITAL SIGNS: High flow saturations are 96%, pulse 83, blood pressure 120\76. CHEST: Bilateral rhonchi. CARDIAC: Normal S1 and S2. No gallops. ABDOMEN: No masses. IMPRESSION: Terminal respiratory failure, do not resuscitate, stop all medication except for comfort care. Inpatient hospice. Job ID: [id number] MTDD
--- NOTE | 2019-02-09 11:35 | PDOC.HOSPP ---
- Subjective Encounter Date: 02/09/19 Encounter Time: 11:33 non-verbal - Objective Vital Signs & Weight: Vital Signs (12 hours) Temp Pulse Resp Pulse Ox 02/09/19 10:44 93 L 02/09/19 07:48 96 02/09/19 07:46 87 28 H 95 02/09/19 07:16 95 02/09/19 07:00 99.6 F 02/09/19 04:00 99.2 F 02/09/19 01:01 97 02/09/19 01:00 96 38 H 97 02/09/19 00:00 99.0 F Weight Admit Weight 156 lb 8.451 oz Weight 140 lb 14.006 oz Most Recent Monitor Data Heart Rate from ECG 82 NIBP 96/59 NIBP BP-Mean 71 Respiration from ECG 23 SpO2 96 I&O: 02/08/19 02/09/19 02/10/19 06:59 06:59 06:59 Intake Total 3981 4070 0 Output Total 1500 2180 750 Balance 2481 1890 -750 Result Diagrams: 02/05/19 20:16 02/05/19 20:16 Hospitalist ROS - Medication Medications: Active Medications Generic Name Dose Route Start Last Admin Trade Name Freq PRN Reason Stop Dose Admin Lorazepam 2 mg 02/08/19 14:45 02/09/19 00:54 Ativan SLOW IVP 2 mg Q2H PRN Administration Comfort Morphine Sulfate 4 mg 02/08/19 14:47 02/09/19 08:12 Morphine SLOW IVP 4 mg Q1H PRN Administration COMFORT - Exam Neck: no JVD Heart: RRR Respiratory: CTAB Gastrointestinal: soft, normal bowel sounds Extremities: no edema Hosp A/P (1) Aspiration pneumonia Code(s): J69.0 - PNEUMONITIS DUE TO INHALATION OF FOOD AND VOMIT Status: Acute Qualifiers: Aspiration pneumonia type: due to regurgitated food Laterality: unspecified laterality (2) Acute respiratory failure with hypoxia and hypercapnia Code(s): J96.01 - ACUTE RESPIRATORY FAILURE WITH HYPOXIA; J96.02 - ACUTE RESPIRATORY FAILURE WITH HYPERCAPNIA Status: Acute (3) Encephalopathy chronic Code(s): G93.49 - OTHER ENCEPHALOPATHY Status: Chronic (4) Oropharyngeal dysphagia Code(s): R13.12 - DYSPHAGIA, OROPHARYNGEAL PHASE Status: Chronic (5) TBI (traumatic brain injury) Code(s): S06.9X9A - UNSP INTRACRANIAL INJURY W LOC OF UNSP DURATION, INIT Status: Chronic Qualifiers: Encounter type: sequela - Plan transitioning to hospice
--- NOTE | 2019-02-09 15:03 | DIS ---
DATE OF ADMISSION: 01/23/2019 DATE OF DISCHARGE: 02/09/2019 PRIMARY CARE PROVIDER: Goldie Starr MD DISCHARGED DISPOSITION: Inpatient hospice. FINAL DIAGNOSES: Acute respiratory failure with hypoxia, pneumonitis due to inhalation of food and vomit, sepsis syndrome, dysphagia, encephalopathy due to traumatic brain injury in the past. DISCHARGE MEDICATIONS: None. ALLERGIES: NONE. DIET: As tolerated. CODE STATUS: DNR, determined on 02/08/2019 with family. HOSPITAL COURSE: The patient was admitted to the Hospitalist Service through [facility] with shortness of breath and history of traumatic brain injury. He has had a PEG and a trach in the past, and he has pulled both out. He had O2 saturation in the 80s when he arrived. Initial diagnoses were aspiration pneumonitis, acute hypoxic and hypercapnic respiratory failure, etc. He was treated with aggressive pulmonary toilet. He was intubated. Antibiotics for healthcare associated pneumonia. Chest x-ray revealed pneumonia on the left and elevated left hemidiaphragm. The patient has been followed in the intensive care unit by the [facility] Hospitalist Service and Pulmonary Department. The family wished to have everything done to care for him, but declined repeat PEG and tracheostomy, which was considered necessary for stabilizing the patient. Admitting CBC was really unremarkable except for a mild neutrophilia. His admitting comprehensive metabolic profile revealed potassium of 3.4, blood sugar 202, calcium 7.7, alkaline phosphatase 123, otherwise normal. Blood gas revealed a hypercapnic respiratory acidosis. The patient was eventually extubated. We were never able to adequately improve him. He was monitored carefully throughout his hospital stay on antibiotics. He eventually did have by 01/24 blood gases consistent with adequate respirations, extubated; pH 7.43, pCO2 of 32.8, pO2 of 66.8. His CBC remains remarkably stable during this time as did his chemistries. After supportive care from the time of admission to 02/08, the family on 02/08 with Palliative Care consult agreed to DNR status and inpatient hospice. He is being moved at this time to inpatient hospice. Job ID: [id number]
--- NOTE | 2019-02-11 08:02 | PQF ---
Please forward to physician who discharged this patient, thank you. KATI PENA DAVID [id number] CLINICAL DOCUMENTATION CLARIFICATION FORM: POST DISCHARGE Addendum to original discharge summary date: ____ Late entry note date: __ DATE:02/11/2019 ATTN: CIRO QUINTERO Please exercise your independent, professional judgment in responding to the clarification form. Clinical indicators are provided on the bottom of this form for your review Please check appropriate box(s): Conflicting documentation was noted in the Medical Record, please clarify if patient is being treated/monitored for: [ ] Severe sepsis [ ] Sepsis syndrome [ ] Other diagnosis [ ] Unable to determine In addition, please specify: Present on Admission (POA): [ ] Yes [ ] No [ ] Unable to determine For continuity of documentation, please document condition throughout progress notes and discharge summary. Thank You. CLINICAL INDICATORS - SIGNS / SYMPTOMS/ LABS Severe sepsis without septic shock, Acute respiratory failure--Documented in ED on 01/23 by Lazaro Pizarro [id number],-Documented in ED on 01/23 by Lazaro Pizarro [id number] in Hospitalist PN on 01/24 by Asa Jain Severe sepsis with acute hypoxic respiratory failure POA, status:Acute- Documented in Hospitalist PN on 01/27 by Asa Jain UTI--Documented in Hospitalist PN on 02/02 by Asa Jain Sepsis syndrome-Documented in discharge summary on 02/09 by Maritza Cruz MD RISK FACTORS Acute respiratory failure-Documented in discharge summary on 02/09 by Maritza Cruz MD Aspiration pneumonia-Documented in discharge summary on 02/09 by Maritza Cruz MD TREATMENT Continue antibiotics-Documented in Hospitalist PN on 01/27 by Asa Jain Continue IV metronidazole and cefepime-Documented in Hospitalist PN on 01/27 by Asa Jain Vancomycin IV-Documented in Medication SAP Currency Exchange Specialist Crystal Reports Winform Viewer (This form is maintained as a part of the permanent medical record) 2014 [employer]. All Rights Reserved [email or web address] [not provided] MTDD
== END 2019-02-09 16:18 | disposition hospice, inpatient (51) | DRG 177 ==
LOC: ERS 14:49 → CCU 18:17 → 2NO 01-29 18:00 → CCU 02-05 21:30
PROVIDERS: ADMIT Internal Medicine; ATTEND Internal Medicine
DX: J69.0 Pneumonitis due to inhalation of food and vomit (principal); J96.01 Acute respiratory failure with hypoxia; J96.02 Acute respiratory failure with hypercapnia; G93.41 Metabolic encephalopathy; E87.2 Acidosis; E44.0 Moderate protein-calorie malnutrition; Z68.1 Body mass index [BMI] 19.9 or less, adult; E87.1 Hypo-osmolality and hyponatremia; J98.11 Atelectasis; N30.00 Acute cystitis without hematuria; R13.10 Dysphagia, unspecified; Z66 Do not resuscitate; F32.9 Major depressive disorder, single episode, unspecified; Z90.49 Acquired absence of other specified parts of digestive tract; Z93.0 Tracheostomy status; E87.6 Hypokalemia; D69.6 Thrombocytopenia, unspecified; G89.4 Chronic pain syndrome; Z51.5 Encounter for palliative care; G40.909 Epilepsy, unspecified, not intractable, without status epilepticus; J98.01 Acute bronchospasm; D64.9 Anemia, unspecified; B95.8 Unspecified staphylococcus as the cause of diseases classified elsewhere
CPT/HCPCS: 31500; 36415; 51702; 71045; 74018; 74230; 80048; 80053; 80202; 81003; 82550; 82805; 83605; 83735; 83880; 84484; 85025; 85610; 85730; 87040; 87086; 87149; 93005; 93010; 94002; 94003; 94640; 94660; 94760; 96361; 96365; 96366; 96376; 99292; C9113; J0692; J1200; J1630; J1650; J1953; J1956; J2060; J2250; J2270; J2543; J2704; J2765; J2920; J3010; J3370; J3480; J3486; J3490; J7050; J7512; J7620; S0028